=== PATIENT | male | born 1980 | race Caucasian/White ===

== ENCOUNTER 2021-04-20 18:30 | Inpatient (IN) | payer OTHER ==
[2021-04-20] MEDS ORDERED: VANCOMYCIN 1 GM in D5W (PRE-DOCKED) 1,000 MG/250 ML IVPB ONE (18:43)
[2021-04-20] MEDS ORDERED: PIPERACILLIN/TAZOB 4.5 GM 4.5 GM in DEXTROSE 5%-WATER 100 ML IVPB ONE (18:43)
[2021-04-20] MEDS ORDERED: ACETAMINOPHEN 1000 MG/100 ML BAG IVPB ONE (18:43)
[2021-04-20] MEDS ORDERED: LACTATED RINGERS SOLUTION 1000 ML INFUS.BAG IV ONE ×2 (18:43→19:13)
[2021-04-20] MEDS ORDERED: PIPERACILLIN/TAZOB 4.5 GM 4.5 GM/100 ML BAG IVPB ONE (18:46)
[2021-04-20] MEDS ORDERED: PIPERACILLIN/TAZOB 2.25 GM 2.25 GM in DEXTROSE 5%-WATER - 50 ML IVPB ONE (18:47)
[2021-04-20 19:37] LABS: BASO % 0.2 % (0-2.0); HEMATOCRIT 44.7 % (35.4-49); LYMPH % 4.2 % (8-40); MCH 28.4 pg (25.7-33.7); MCHC 31.4 g/dl (32.0-35.9); MEAN CELL VOLUME 90.5 fl (80-96); MEAN PLT VOLUME 11.8 fl (7.5-11.1); MONO % 6.6 % (3.8-10.2); PLATELET COUNT 271 10^3/uL (134-434); RBC 4.94 M/mm3 (4.00-5.60); RDW 13.9 % (11.9-15.9); WHITE BLOOD COUNT 20.2 K/mm3 (4.0-10.0)
[2021-04-20 19:41] LABS: VENOUS BASE EXCESS 1.1 mmol/L (-2-2); VENOUS PH 7.318 (7.310-7.410)
[2021-04-20 19:43] LABS: EPI CELLS 5 /uL (0-25.1); HYALINE CASTS 6 /uL (0-3.1); URINE APPEARANCE CLOUDY; URINE BILIRUBIN 1+ (NEGATIVE); URINE COLOR DK YELLOW; URINE GLUCOSE (UA) NEGATIVE (NEGATIVE); URINE KETONE TRACE (NEGATIVE); URINE LEUK ESTERASE NEGATIVE (NEGATIVE); URINE NITRITE POSITIVE (NEGATIVE); URINE PROTEIN NEGATIVE (NEGATIVE); URINE WBC 5 /uL (0-25.8)
[2021-04-20 19:48] LABS: CHLORIDE 132 mmol/L (98-107)
[2021-04-20 19:51] LABS: ALBUMIN 2.6 g/dl (3.4-5.0); CO2 29 mmol/L (21-32); GLUCOSE,RANDOM 321 mg/dL (74-106); MAGNESIUM 4.2 mg/dL (1.8-2.4)
[2021-04-20 19:54] LABS: CREATININE 3.2 mg/dL (0.55-1.3); SGOT/AST 199 U/L (15-37); SGPT/ALT 438 U/L (13-61)
[2021-04-20 19:56] LABS: BILIRUBIN,TOTAL 1.3 mg/dL (0.2-1); TOT PROT 7.4 g/dl (6.4-8.2)
[2021-04-20 19:57] LABS: ALK PHOS 109 U/L (45-117)
[2021-04-20 19:59] LABS: INR 1.32 (0.83-1.09); PROTHROMBIN TIME (PATIENT) 15.9 SEC (9.7-13.0)
[2021-04-20 20:00] LABS: LACTIC ACID 4.2 mmol/L (0.4-2.0); N-TERMINAL BNP 191.2 pg/ml (5-125)
[2021-04-20 20:02] LABS: ACTIVATED PTT 34.8 SECONDS (25.2-36.5)
[2021-04-20 20:36] LABS: ANION GAP 11 MMOL/L (8-16); BLOOD UREA NITROGEN 140.1 mg/dL (7-18); SODIUM 171 mmol/L (136-145)
[2021-04-20 21:17] LABS: CHLORIDE 132 mmol/L (98-107)
[2021-04-20 21:22] LABS: CALCIUM 8.6 mg/dL (8.5-10.1)
[2021-04-20 21:23] LABS: ALBUMIN 2.3 g/dl (3.4-5.0); CO2 33 mmol/L (21-32); GLUCOSE,RANDOM 346 mg/dL (74-106)
[2021-04-20 21:26] LABS: CREATININE 3.1 mg/dL (0.55-1.3); SGOT/AST 183 U/L (15-37); SGPT/ALT 400 U/L (13-61)
[2021-04-20 21:27] LABS: BILIRUBIN,TOTAL 1.3 mg/dL (0.2-1); TOT PROT 6.6 g/dl (6.4-8.2)
[2021-04-20 21:29] LABS: ALK PHOS 98 U/L (45-117)
[2021-04-20 21:31] LABS: ANION GAP 2 MMOL/L (8-16); BLOOD UREA NITROGEN 134.9 mg/dL (7-18); LACTIC ACID 3.1 mmol/L (0.4-2.0); SODIUM 167 mmol/L (136-145)
[2021-04-20] MEDS ORDERED: LACTATED RINGERS SOLUTION 1,000 ML/1,000 ML INFUS.BAG IV SCH (22:15)
[2021-04-20 22:28] LABS: ANISOCYTOSIS 0; MACROCYTOSIS 0; PLATELET ESTIMATE NORMAL
[2021-04-20 22:57] LABS: URINE BACTERIA 12.1 /uL (0-1359); URINE RBC 21.8 /uL (0-23.9)
[2021-04-21] MEDS: MUPIROCIN 2% TOPICAL OINTMENT FOR DECOLONIZATION NS SCH ×2 (01:44→09:49)
[2021-04-21 05:12] LABS: BASO % 0.2 % (0-2.0); HEMATOCRIT 37.9 % (35.4-49); HEMOGLOBIN 12.1 GM/dL (11.7-16.9); LYMPH % 7.9 % (8-40); MCH 28.5 pg (25.7-33.7); MEAN CELL VOLUME 89.1 fl (80-96); MEAN PLT VOLUME 11.5 fl (7.5-11.1); MONO % 6.8 % (3.8-10.2); NEUT % 85.1 % (42.8-82.8); PLATELET COUNT 172 10^3/uL (134-434); RBC 4.25 M/mm3 (4.00-5.60); RDW 13.4 % (11.9-15.9); WHITE BLOOD COUNT 19.4 K/mm3 (4.0-10.0)
[2021-04-21 05:32] LABS: CHLORIDE 133 mmol/L (98-107)
[2021-04-21 05:34] LABS: CALCIUM 8.2 mg/dL (8.5-10.1); INR 1.3 (0.83-1.09); PROTHROMBIN TIME (PATIENT) 15.6 SEC (9.7-13.0)
[2021-04-21 05:35] LABS: ALBUMIN 2.2 g/dl (3.4-5.0); CO2 29 mmol/L (21-32); GLUCOSE,RANDOM 196 mg/dL (74-106); MAGNESIUM 3.4 mg/dL (1.8-2.4)
[2021-04-21 05:36] LABS: ACTIVATED PTT 30.1 SECONDS (25.2-36.5)
[2021-04-21 05:38] LABS: CREATININE 2.4 mg/dL (0.55-1.3); PHOSPHOROUS 4.2 mg/dL (2.5-4.9); SGOT/AST 154 U/L (15-37); SGPT/ALT 343 U/L (13-61)
[2021-04-21 05:39] LABS: BILIRUBIN,TOTAL 1.3 mg/dL (0.2-1)
[2021-04-21 05:40] LABS: TOT PROT 6.3 g/dl (6.4-8.2)
[2021-04-21 05:41] LABS: ALK PHOS 93 U/L (45-117)
[2021-04-21 05:44] LABS: LACTIC ACID 2.4 mmol/L (0.4-2.0)
[2021-04-21 06:15] LABS: ANION GAP 8 MMOL/L (8-16); BLOOD UREA NITROGEN 115.7 mg/dL (7-18); SODIUM 170 mmol/L (136-145)
[2021-04-21] MEDS ORDERED: SODIUM CHLORIDE 0.45% 1,000 ML IV SCH (07:45)
[2021-04-21] MEDS ORDERED: ACETAMINOPHEN 1000 MG/100 ML BAG IVPB PRN (08:31)
[2021-04-21] MEDS ORDERED: ACETAMINOPHEN 1000 MG/100 ML BAG IVPB ONE (08:32)
[2021-04-21] MEDS ORDERED: AZITHROMYCIN IVPB 500 MG/250 ML BAG IVPB SCH (10:00)
[2021-04-21] MEDS ORDERED: PIPERACILLIN/TAZOB 3.375 GM 3.375 GM in DEXTROSE 5%-WATER - 50 ML IVPB SCH (10:00)
[2021-04-21] MEDS ORDERED: PANTOPRAZOLE SODIUM 40 MG VIAL IVPUSH SCH (10:00)
[2021-04-21] MEDS ORDERED: DEXTROSE 5%-WATER - 50 ML IVPB ONE ×2 (10:46→17:30)
[2021-04-21] MEDS ORDERED: PIPERACILLIN/TAZOBACTAM 3.375 GM VIAL IVPB ONE ×2 (10:46→17:30)
[2021-04-21] MEDS ORDERED: LORazepam 2 MG/ML SDV VIAL IVPUSH PRN ×2 (11:05→16:46)
[2021-04-21] MEDS ORDERED: LORazepam 2 MG/ML SDV VIAL ONE (11:10)
[2021-04-21] MEDS ORDERED: HEPARIN NA (PORCINE) 5,000 UNITS/ML 1ML VIAL SQ SCH (14:00)
[2021-04-21 16:11] LABS: CHLORIDE 132 mmol/L (98-107)
[2021-04-21 16:12] LABS: CALCIUM 8.4 mg/dL (8.5-10.1); CO2 29 mmol/L (21-32)
[2021-04-21 16:13] LABS: BLOOD UREA NITROGEN 96.2 mg/dL (7-18); GLUCOSE,RANDOM 253 mg/dL (74-106)
[2021-04-21 16:16] LABS: CREATININE 2.1 mg/dL (0.55-1.3)
[2021-04-21 16:17] LABS: ANION GAP 5 MMOL/L (8-16); SODIUM 167 mmol/L (136-145)
[2021-04-21] MEDS: SODIUM CHLORIDE 0.45% 1,000 ML IV SCH ×2 (16:47→20:15)
[2021-04-21] MEDS: PIPERACILLIN/TAZOB 3.375 GM 3.375 GM in DEXTROSE 5%-WATER - 50 ML IVPB SCH (17:47)
[2021-04-21] MEDS: HEPARIN NA (PORCINE) 5,000 UNITS/ML 1ML VIAL SQ SCH (22:00)
[2021-04-21] MEDS ORDERED: MUPIROCIN 2% TOPICAL OINTMENT FOR DECOLONIZATION NS SCH (22:00)
[2021-04-21] MEDS ORDERED: CHLORHEXIDINE GLUCONATE 4% CLEANSER FOR DECOLONIZATION TP SCH ×2 (22:00)
[2021-04-22] MEDS ORDERED: PIPERACILLIN/TAZOBACTAM 3.375 GM VIAL IVPB ONE ×3 (00:34→16:34)
[2021-04-22] MEDS ORDERED: DEXTROSE 5%-WATER - 50 ML IVPB ONE ×3 (00:34→16:34)
[2021-04-22 02:02] LABS: CHLORIDE 134 mmol/L (98-107)
[2021-04-22 02:04] LABS: BLOOD UREA NITROGEN 77.8 mg/dL (7-18); CALCIUM 7.9 mg/dL (8.5-10.1)
[2021-04-22 02:05] LABS: GLUCOSE,RANDOM 188 mg/dL (74-106)
[2021-04-22] MEDS: PIPERACILLIN/TAZOB 3.375 GM 3.375 GM in DEXTROSE 5%-WATER - 50 ML IVPB SCH ×3 (02:07→18:32)
[2021-04-22 02:08] LABS: CREATININE 1.7 mg/dL (0.55-1.3)
[2021-04-22 02:14] LABS: ANION GAP 6 MMOL/L (8-16); CO2 27 mmol/L (21-32); SODIUM 167 mmol/L (136-145)
[2021-04-22] MEDS: SODIUM CHLORIDE 0.45% 1,000 ML IV SCH (05:22)
[2021-04-22] MEDS: HEPARIN NA (PORCINE) 5,000 UNITS/ML 1ML VIAL SQ SCH ×3 (05:54→22:07)
[2021-04-22 10:36] LABS: BASO % 0.2 % (0-2.0); EOS % 0.6 % (0-4.5); HEMATOCRIT 33.5 % (35.4-49); HEMOGLOBIN 10.9 GM/dL (11.7-16.9); MCH 28.8 pg (25.7-33.7); MCHC 32.5 g/dl (32.0-35.9); MEAN CELL VOLUME 88.6 fl (80-96); MEAN PLT VOLUME 12.2 fl (7.5-11.1); MONO % 5.2 % (3.8-10.2); PLATELET COUNT 137 10^3/uL (134-434); RBC 3.78 M/mm3 (4.00-5.60); RDW 13.3 % (11.9-15.9); WHITE BLOOD COUNT 15.6 K/mm3 (4.0-10.0)
[2021-04-22 11:00] LABS: CHLORIDE 132 mmol/L (98-107)
[2021-04-22 11:02] LABS: BLOOD UREA NITROGEN 60.4 mg/dL (7-18); CALCIUM 7.4 mg/dL (8.5-10.1); CO2 29 mmol/L (21-32); GLUCOSE,RANDOM 194 mg/dL (74-106); MAGNESIUM 3.3 mg/dL (1.8-2.4)
[2021-04-22 11:03] LABS: ALBUMIN 2.1 g/dl (3.4-5.0)
[2021-04-22 11:05] LABS: CREATININE 1.4 mg/dL (0.55-1.3); SGOT/AST 137 U/L (15-37); SGPT/ALT 247 U/L (13-61)
[2021-04-22 11:06] LABS: PHOSPHOROUS 3.4 mg/dL (2.5-4.9)
[2021-04-22 11:07] LABS: BILIRUBIN,TOTAL 0.9 mg/dL (0.2-1); TOT PROT 5.8 g/dl (6.4-8.2)
[2021-04-22 11:08] LABS: ALK PHOS 92 U/L (45-117)
[2021-04-22 11:12] LABS: ANION GAP 3 MMOL/L (8-16); SODIUM 163 mmol/L (136-145)
[2021-04-22] MEDS: PANTOPRAZOLE SODIUM 40 MG VIAL IVPUSH SCH (11:45)
[2021-04-22] MEDS: AZITHROMYCIN IVPB 500 MG/250 ML BAG IVPB SCH (12:43)
[2021-04-22 15:24] VITALS: BMI 25.1
[2021-04-22] MEDS: DEXTROSE 5%-WATER - 1,000 ML IV SCH (15:43)
[2021-04-23] MEDS: DEXTROSE 5%-WATER - 1,000 ML IV SCH ×3 (00:11→15:00)
[2021-04-23] MEDS ORDERED: PIPERACILLIN/TAZOBACTAM 3.375 GM VIAL IVPB ONE ×2 (01:20→09:09)
[2021-04-23] MEDS ORDERED: DEXTROSE 5%-WATER - 50 ML IVPB ONE ×3 (01:21→18:31)
[2021-04-23] MEDS: PIPERACILLIN/TAZOB 3.375 GM 3.375 GM in DEXTROSE 5%-WATER - 50 ML IVPB SCH ×3 (01:22→11:23)
[2021-04-23] MEDS: HEPARIN NA (PORCINE) 5,000 UNITS/ML 1ML VIAL SQ SCH (05:45)
[2021-04-23] MEDS: PANTOPRAZOLE SODIUM 40 MG VIAL IVPUSH SCH (09:10)
[2021-04-23 10:08] LABS: CALCIUM 7.6 mg/dL (8.5-10.1)
[2021-04-23 10:09] LABS: BLOOD UREA NITROGEN 38.4 mg/dL (7-18); MAGNESIUM 2.8 mg/dL (1.8-2.4)
[2021-04-23 10:12] LABS: CREATININE 1.2 mg/dL (0.55-1.3)
[2021-04-23 10:14] LABS: BILIRUBIN,TOTAL 1.2 mg/dL (0.2-1); TOT PROT 5.6 g/dl (6.4-8.2)
[2021-04-23] MEDS ORDERED: POTASSIUM PHOSPHATE 15 MM in DEXTROSE 5%-WATER - 250 ML IVPB ONE (11:30)
[2021-04-23] MEDS ORDERED: VANCOMYCIN/WATER BAGS 1,250 MG/250 ML BAG IVPB SCH ×2 (13:00→20:00)
[2021-04-23] MEDS: AZITHROMYCIN IVPB 500 MG/250 ML BAG IVPB SCH (13:09)
[2021-04-23] MEDS ORDERED: DEXTROSE 5%-WATER - 1,000 ML with POTASSIUM CHLORIDE 40 MEQ IV SCH (16:48)
[2021-04-23] MEDS ORDERED: AZTREONAM 1 GM VIAL (RESTRICTED TO ID) ONE (18:30)
[2021-04-23] MEDS: AZTREONAM 1 GM in DEXTROSE 5%-WATER - 50 ML IVPB SCH (19:46)
[2021-04-23 23:45] LABS: HEMATOCRIT 29.5 % (35.4-49); HEMOGLOBIN 9.9 GM/dL (11.7-16.9); MCH 28.8 pg (25.7-33.7); MCHC 33.6 g/dl (32.0-35.9); MEAN CELL VOLUME 85.8 fl (80-96); MEAN PLT VOLUME 11.6 fl (7.5-11.1); PLATELET COUNT 126 10^3/uL (134-434); RBC 3.44 M/mm3 (4.00-5.60); WHITE BLOOD COUNT 11.6 K/mm3 (4.0-10.0)
[2021-04-24] MEDS: PANTOPRAZOLE SODIUM 40 MG VIAL IVPUSH SCH ×2 (00:14→10:15)
[2021-04-24 00:48] LABS: ANISOCYTOSIS 1+; MACROCYTOSIS 0; PLATELET ESTIMATE DECREASED
[2021-04-24] MEDS ORDERED: AZTREONAM 1 GM VIAL (RESTRICTED TO ID) ONE ×3 (04:28→17:09)
[2021-04-24] MEDS ORDERED: DEXTROSE 5%-WATER - 50 ML IVPB ONE ×3 (04:28→17:09)
[2021-04-24] MEDS: AZTREONAM 1 GM in DEXTROSE 5%-WATER - 50 ML IVPB SCH ×3 (04:31→17:26)
[2021-04-24 09:20] LABS: BASO % 0.3 % (0-2.0); EOS % 5.1 % (0-4.5); HEMATOCRIT 28.8 % (35.4-49); HEMOGLOBIN 9.7 GM/dL (11.7-16.9); MCH 29.4 pg (25.7-33.7); MCHC 33.6 g/dl (32.0-35.9); MEAN CELL VOLUME 87.6 fl (80-96); MEAN PLT VOLUME 11.5 fl (7.5-11.1); MONO % 6.4 % (3.8-10.2); NEUT % 77.2 % (42.8-82.8); PLATELET COUNT 126 10^3/uL (134-434); RBC 3.29 M/mm3 (4.00-5.60); RDW 12.9 % (11.9-15.9); WHITE BLOOD COUNT 9.9 K/mm3 (4.0-10.0)
[2021-04-24 09:48] LABS: CALCIUM 7.9 mg/dL (8.5-10.1)
[2021-04-24 09:49] LABS: BLOOD UREA NITROGEN 22.3 mg/dL (7-18)
[2021-04-24 09:51] LABS: CREATININE 0.8 mg/dL (0.55-1.3)
[2021-04-24 09:53] LABS: BILIRUBIN,TOTAL 0.9 mg/dL (0.2-1); TOT PROT 5.4 g/dl (6.4-8.2)
[2021-04-24] MEDS ORDERED: PT OWN MED DRAWER 7, Y5N ONE ×2 (10:12→21:50)
[2021-04-24] MEDS: POTASSIUM CHLORIDE 40 MEQ in DEXTROSE 5%-WATER - 1,000 ML IV SCH ×2 (14:22→20:17)
[2021-04-24] MEDS: CLINDAMYCIN 600MG PREMIX IVPB 600 MG/50 ML BAG IVPB SCH (18:50)
[2021-04-24] MEDS: FAMOTIDINE 20 MG/50 ML IVPB 20 MG/50 ML MG IVPB SCH (21:52)
[2021-04-25] MEDS ORDERED: AZTREONAM 1 GM VIAL (RESTRICTED TO ID) ONE ×3 (01:06→17:42)
[2021-04-25] MEDS ORDERED: DEXTROSE 5%-WATER - 50 ML IVPB ONE ×3 (01:06→17:43)
[2021-04-25] MEDS: AZTREONAM 1 GM in DEXTROSE 5%-WATER - 50 ML IVPB SCH ×3 (01:23→17:45)
[2021-04-25] MEDS: CLINDAMYCIN 600MG PREMIX IVPB 600 MG/50 ML BAG IVPB SCH ×3 (01:54→17:35)
[2021-04-25] MEDS: POTASSIUM CHLORIDE 40 MEQ in DEXTROSE 5%-WATER - 1,000 ML IV SCH ×2 (03:35→15:20)
[2021-04-25 09:20] LABS: BASO % 0.3 % (0-2.0); EOS % 5.1 % (0-4.5); HEMATOCRIT 28.8 % (35.4-49); HEMOGLOBIN 9.6 GM/dL (11.7-16.9); LYMPH % 8.5 % (8-40); MCH 28.5 pg (25.7-33.7); MCHC 33.5 g/dl (32.0-35.9); MEAN PLT VOLUME 10.7 fl (7.5-11.1); MONO % 5.1 % (3.8-10.2); PLATELET COUNT 146 10^3/uL (134-434); RBC 3.39 M/mm3 (4.00-5.60); RDW 13.1 % (11.9-15.9)
[2021-04-25] MEDS: FAMOTIDINE 20 MG/50 ML IVPB 20 MG/50 ML MG IVPB SCH ×2 (09:28→21:03)
[2021-04-25 09:51] LABS: BLOOD UREA NITROGEN 14.3 mg/dL (7-18)
[2021-04-25 09:52] LABS: CALCIUM 7.7 mg/dL (8.5-10.1)
[2021-04-25 09:54] LABS: BILIRUBIN,DIRECT 0.2 mg/dL (0.0-0.2); CREATININE 0.8 mg/dL (0.55-1.3)
[2021-04-25 09:56] LABS: BILIRUBIN,TOTAL 0.6 mg/dL (0.2-1); TOT PROT 5.4 g/dl (6.4-8.2)
[2021-04-25 12:52] LABS: ANISOCYTOSIS 1+; MACROCYTOSIS 1+
[2021-04-25 22:48] LABS: HEMATOCRIT 31.3 % (35.4-49); HEMOGLOBIN 10.6 GM/dL (11.7-16.9); MCH 28.8 pg (25.7-33.7); MCHC 33.9 g/dl (32.0-35.9); MEAN CELL VOLUME 84.8 fl (80-96); MEAN PLT VOLUME 10.4 fl (7.5-11.1); PLATELET COUNT 168 10^3/uL (134-434); RBC 3.69 M/mm3 (4.00-5.60); WHITE BLOOD COUNT 14.8 K/mm3 (4.0-10.0)
[2021-04-25 23:10] LABS: ALBUMIN 2.4 g/dl (3.4-5.0); BLOOD UREA NITROGEN 13.6 mg/dL (7-18); CALCIUM 8.1 mg/dL (8.5-10.1)
[2021-04-25 23:13] LABS: CREATININE 0.7 mg/dL (0.55-1.3)
[2021-04-25 23:15] LABS: BILIRUBIN,TOTAL 0.6 mg/dL (0.2-1); TOT PROT 6.1 g/dl (6.4-8.2)
[2021-04-25 23:53] LABS: ANISOCYTOSIS 0; MACROCYTOSIS 1+; PLATELET ESTIMATE NORMAL
[2021-04-26] MEDS: CLINDAMYCIN 600MG PREMIX IVPB 600 MG/50 ML BAG IVPB SCH ×3 (01:11→18:48)
[2021-04-26] MEDS ORDERED: DEXTROSE 5%-WATER - 50 ML IVPB ONE ×3 (01:18→18:15)
[2021-04-26] MEDS ORDERED: AZTREONAM 1 GM VIAL (RESTRICTED TO ID) ONE ×3 (01:18→18:15)
[2021-04-26] MEDS: AZTREONAM 1 GM in DEXTROSE 5%-WATER - 50 ML IVPB SCH ×3 (01:42→18:26)
[2021-04-26 09:37] LABS: HEMATOCRIT 30.8 % (35.4-49); HEMOGLOBIN 10.4 GM/dL (11.7-16.9); MCH 28.8 pg (25.7-33.7); MCHC 33.9 g/dl (32.0-35.9); MEAN CELL VOLUME 84.9 fl (80-96); MEAN PLT VOLUME 10.4 fl (7.5-11.1); PLATELET COUNT 182 10^3/uL (134-434); RBC 3.62 M/mm3 (4.00-5.60); RDW 13.1 % (11.9-15.9); WHITE BLOOD COUNT 13.8 K/mm3 (4.0-10.0)
[2021-04-26] MEDS ORDERED: PT OWN MED DRAWER 7, Y5N ONE (09:50)
[2021-04-26] MEDS: AMINO ACIDS/PROTEIN HYDROLYS 30 ML LIQUID.PKT GT SCH (09:55)
[2021-04-26] MEDS: MULTIVIT-MINERALS ORAL LIQUID PEG SCH (09:57)
[2021-04-26] MEDS ORDERED: MULTIVIT-MINERALS ORAL LIQUID PO SCH (10:00)
[2021-04-26] MEDS: FAMOTIDINE 20 MG/50 ML IVPB 20 MG/50 ML MG IVPB SCH ×2 (10:05→21:11)
[2021-04-26 10:09] LABS: BLOOD UREA NITROGEN 14.8 mg/dL (7-18)
[2021-04-26 10:11] LABS: ALBUMIN 2.2 g/dl (3.4-5.0); CALCIUM 8.4 mg/dL (8.5-10.1)
[2021-04-26 10:12] LABS: CREATININE 0.7 mg/dL (0.55-1.3)
[2021-04-26 10:14] LABS: PHOSPHOROUS 2.4 mg/dL (2.5-4.9)
[2021-04-26 10:16] LABS: BILIRUBIN,TOTAL 0.4 mg/dL (0.2-1); TOT PROT 5.9 g/dl (6.4-8.2)
[2021-04-26 12:58] LABS: ANISOCYTOSIS 0; MACROCYTOSIS 0; PLATELET ESTIMATE NORMAL
[2021-04-27] MEDS ORDERED: AZTREONAM 1 GM VIAL (RESTRICTED TO ID) ONE ×4 (01:05→19:38)
[2021-04-27] MEDS ORDERED: DEXTROSE 5%-WATER - 50 ML IVPB ONE ×4 (01:05→19:38)
[2021-04-27] MEDS: AZTREONAM 1 GM in DEXTROSE 5%-WATER - 50 ML IVPB SCH ×3 (01:12→17:12)
[2021-04-27] MEDS: CLINDAMYCIN 600MG PREMIX IVPB 600 MG/50 ML BAG IVPB SCH ×3 (01:12→17:12)
[2021-04-27] MEDS ORDERED: SODIUM CHLORIDE 500 ML IV STA (08:20)
[2021-04-27 10:51] LABS: HEMATOCRIT 31.5 % (35.4-49); HEMOGLOBIN 10.9 GM/dL (11.7-16.9); MCH 29.3 pg (25.7-33.7); MCHC 34.5 g/dl (32.0-35.9); MEAN CELL VOLUME 84.9 fl (80-96); MEAN PLT VOLUME 9.9 fl (7.5-11.1); PLATELET COUNT 265 10^3/uL (134-434); RBC 3.71 M/mm3 (4.00-5.60); RDW 13.2 % (11.9-15.9); WHITE BLOOD COUNT 16.8 K/mm3 (4.0-10.0)
[2021-04-27] MEDS ORDERED: PT OWN MED DRAWER 7, Y5N ONE (11:09)
[2021-04-27] MEDS: AMINO ACIDS/PROTEIN HYDROLYS 30 ML LIQUID.PKT GT SCH (11:12)
[2021-04-27] MEDS: MULTIVIT-MINERALS ORAL LIQUID PEG SCH (11:13)
[2021-04-27 11:15] LABS: ALBUMIN 2.4 g/dl (3.4-5.0); BLOOD UREA NITROGEN 13.9 mg/dL (7-18)
[2021-04-27 11:19] LABS: BILIRUBIN,TOTAL 0.5 mg/dL (0.2-1); CALCIUM 8.3 mg/dL (8.5-10.1); CREATININE 0.6 mg/dL (0.55-1.3); TOT PROT 6.3 g/dl (6.4-8.2)
[2021-04-27] MEDS: FAMOTIDINE 20 MG/50 ML IVPB 20 MG/50 ML MG IVPB SCH ×2 (12:39→22:52)
[2021-04-27] MEDS: LORazepam 2 MG/ML SDV VIAL IVPUSH PRN (23:56)
[2021-04-28] MEDS: AZTREONAM 1 GM in DEXTROSE 5%-WATER - 50 ML IVPB SCH ×3 (03:13→18:03)
[2021-04-28] MEDS: CLINDAMYCIN 600MG PREMIX IVPB 600 MG/50 ML BAG IVPB SCH ×3 (03:13→17:08)
[2021-04-28 07:31] LABS: HEMATOCRIT 33.1 % (35.4-49); HEMOGLOBIN 11.1 GM/dL (11.7-16.9); MCHC 33.6 g/dl (32.0-35.9); MEAN CELL VOLUME 86.1 fl (80-96); MEAN PLT VOLUME 9.8 fl (7.5-11.1); PLATELET COUNT 260 10^3/uL (134-434); RBC 3.84 M/mm3 (4.00-5.60); RDW 13.4 % (11.9-15.9); WHITE BLOOD COUNT 11.9 K/mm3 (4.0-10.0)
[2021-04-28 07:57] LABS: CALCIUM 8.1 mg/dL (8.5-10.1)
[2021-04-28 07:58] LABS: ALBUMIN 2.3 g/dl (3.4-5.0); BLOOD UREA NITROGEN 15.6 mg/dL (7-18)
[2021-04-28 08:02] LABS: CREATININE 0.7 mg/dL (0.55-1.3)
[2021-04-28 08:03] LABS: BILIRUBIN,TOTAL 0.5 mg/dL (0.2-1); TOT PROT 5.8 g/dl (6.4-8.2)
[2021-04-28] MEDS: AMINO ACIDS/PROTEIN HYDROLYS 30 ML LIQUID.PKT GT SCH (09:00)
[2021-04-28] MEDS ORDERED: PT OWN MED DRAWER 7, Y5N ONE ×3 (09:22→18:07)
[2021-04-28] MEDS: MULTIVIT-MINERALS ORAL LIQUID PEG SCH (09:25)
[2021-04-28] MEDS: LORazepam 2 MG/ML SDV VIAL IVPUSH PRN ×2 (09:27→18:08)
[2021-04-28] MEDS: FAMOTIDINE 20 MG/50 ML IVPB 20 MG/50 ML MG IVPB SCH ×2 (09:27→22:26)
[2021-04-28] MEDS ORDERED: LORazepam 1 MG TABLET GT PRN (11:02)
[2021-04-28] MEDS ORDERED: AZTREONAM 1 GM VIAL (RESTRICTED TO ID) ONE (18:02)
[2021-04-28] MEDS ORDERED: DEXTROSE 5%-WATER - 50 ML IVPB ONE (18:03)
[2021-04-28] MEDS: HEPARIN NA (PORCINE) 5,000 UNITS/ML 1ML VIAL SQ SCH (22:27)
[2021-04-28] MEDS: LORazepam 1 MG TABLET GT SCH (22:27)
[2021-04-29] MEDS ORDERED: DEXTROSE 5%-WATER - 50 ML IVPB ONE ×4 (01:02→23:38)
[2021-04-29] MEDS ORDERED: AZTREONAM 1 GM VIAL (RESTRICTED TO ID) ONE ×4 (01:02→23:38)
[2021-04-29] MEDS: CLINDAMYCIN 600MG PREMIX IVPB 600 MG/50 ML BAG IVPB SCH ×3 (02:00→18:03)
[2021-04-29] MEDS: AZTREONAM 1 GM in DEXTROSE 5%-WATER - 50 ML IVPB SCH ×3 (02:33→18:03)
[2021-04-29] MEDS: LORazepam 1 MG TABLET GT SCH ×4 (07:12→22:46)
[2021-04-29] MEDS: AMINO ACIDS/PROTEIN HYDROLYS 30 ML LIQUID.PKT GT SCH (07:12)
[2021-04-29] MEDS: HEPARIN NA (PORCINE) 5,000 UNITS/ML 1ML VIAL SQ SCH ×3 (07:12→21:05)
[2021-04-29] MEDS: FAMOTIDINE 20 MG/50 ML IVPB 20 MG/50 ML MG IVPB SCH ×2 (10:34→21:05)
[2021-04-29] MEDS: MULTIVIT-MINERALS ORAL LIQUID PEG SCH (10:34)
[2021-04-29] MEDS ORDERED: PT OWN MED DRAWER 7, Y5N ONE (11:42)
[2021-04-29 12:16] LABS: BASO % 0.3 % (0-2.0); EOS % 0.7 % (0-4.5); HEMATOCRIT 31.3 % (35.4-49); HEMOGLOBIN 10.6 GM/dL (11.7-16.9); LYMPH % 12.2 % (8-40); MCH 28.6 pg (25.7-33.7); MEAN CELL VOLUME 84.1 fl (80-96); NEUT % 80.8 % (42.8-82.8); PLATELET COUNT 310 10^3/uL (134-434); RBC 3.73 M/mm3 (4.00-5.60); RDW 13.6 % (11.9-15.9); WHITE BLOOD COUNT 12.9 K/mm3 (4.0-10.0)
[2021-04-29 12:32] LABS: ALBUMIN 2.5 g/dl (3.4-5.0); CALCIUM 8.3 mg/dL (8.5-10.1)
[2021-04-29 12:33] LABS: BLOOD UREA NITROGEN 15.9 mg/dL (7-18)
[2021-04-29 12:36] LABS: CREATININE 0.6 mg/dL (0.55-1.3)
[2021-04-29 12:37] LABS: TOT PROT 6.3 g/dl (6.4-8.2)
[2021-04-29] MEDS: METOPROLOL TARTRATE 25 MG TABLET (FP) PEG SCH (21:04)
[2021-04-30] MEDS: CLINDAMYCIN 600MG PREMIX IVPB 600 MG/50 ML BAG IVPB SCH ×3 (01:11→17:46)
[2021-04-30] MEDS: AZTREONAM 1 GM in DEXTROSE 5%-WATER - 50 ML IVPB SCH ×3 (01:45→17:46)
[2021-04-30] MEDS: LORazepam 1 MG TABLET GT SCH ×3 (05:34→17:46)
[2021-04-30] MEDS: HEPARIN NA (PORCINE) 5,000 UNITS/ML 1ML VIAL SQ SCH ×3 (05:34→21:44)
[2021-04-30 06:47] LABS: BASO % 0.5 % (0-2.0); EOS % 1.2 % (0-4.5); HEMOGLOBIN 10.3 GM/dL (11.7-16.9); LYMPH % 14.9 % (8-40); MCHC 34.5 g/dl (32.0-35.9); MEAN CELL VOLUME 84.3 fl (80-96); MEAN PLT VOLUME 8.6 fl (7.5-11.1); MONO % 7.3 % (3.8-10.2); NEUT % 76.1 % (42.8-82.8); PLATELET COUNT 307 10^3/uL (134-434); RBC 3.56 M/mm3 (4.00-5.60); RDW 13.7 % (11.9-15.9); WHITE BLOOD COUNT 11.5 K/mm3 (4.0-10.0)
[2021-04-30 06:54] LABS: MAGNESIUM 1.9 mg/dL (1.8-2.4)
[2021-04-30 07:07] LABS: CALCIUM 8.3 mg/dL (8.5-10.1)
[2021-04-30 07:08] LABS: ALBUMIN 2.4 g/dl (3.4-5.0)
[2021-04-30 07:11] LABS: CREATININE 0.7 mg/dL (0.55-1.3)
[2021-04-30 07:13] LABS: BILIRUBIN,TOTAL 0.6 mg/dL (0.2-1); TOT PROT 6.1 g/dl (6.4-8.2)
[2021-04-30] MEDS ORDERED: PT OWN MED DRAWER 7, Y5N ONE (08:56)
[2021-04-30] MEDS ORDERED: AZTREONAM 1 GM VIAL (RESTRICTED TO ID) ONE ×2 (08:56→16:52)
[2021-04-30] MEDS ORDERED: DEXTROSE 5%-WATER - 50 ML IVPB ONE ×2 (08:56→16:53)
[2021-04-30] MEDS: MULTIVIT-MINERALS ORAL LIQUID PEG SCH (09:24)
[2021-04-30] MEDS: AMINO ACIDS/PROTEIN HYDROLYS 30 ML LIQUID.PKT GT SCH (09:24)
[2021-04-30] MEDS: METOPROLOL TARTRATE 25 MG TABLET (FP) PEG SCH ×2 (10:25→21:45)
[2021-04-30] MEDS: FAMOTIDINE 20 MG/50 ML IVPB 20 MG/50 ML MG IVPB SCH ×2 (10:25→21:45)
[2021-04-30] MEDS ORDERED: ACETAMINOPHEN 1000 MG/100 ML BAG IVPB ONE (17:09)
[2021-04-30] MEDS ORDERED: ACETAMINOPHEN INJECTION 100 ML IVPB ONE (17:10)
[2021-05-01] MEDS: LORazepam 1 MG TABLET GT SCH ×5 (00:22→23:06)
[2021-05-01] MEDS ORDERED: DEXTROSE 5%-WATER - 50 ML IVPB ONE ×2 (01:06→09:22)
[2021-05-01] MEDS ORDERED: AZTREONAM 1 GM VIAL (RESTRICTED TO ID) ONE ×2 (01:06→09:22)
[2021-05-01] MEDS: AZTREONAM 1 GM in DEXTROSE 5%-WATER - 50 ML IVPB SCH ×2 (01:44→09:37)
[2021-05-01] MEDS: CLINDAMYCIN 600MG PREMIX IVPB 600 MG/50 ML BAG IVPB SCH ×2 (02:02→09:38)
[2021-05-01] MEDS: HEPARIN NA (PORCINE) 5,000 UNITS/ML 1ML VIAL SQ SCH ×3 (07:17→23:06)
[2021-05-01 07:49] LABS: BASO % 0.7 % (0-2.0); EOS % 1.2 % (0-4.5); LYMPH % 14.8 % (8-40); MCH 29.3 pg (25.7-33.7); MCHC 34.4 g/dl (32.0-35.9); MEAN CELL VOLUME 85.2 fl (80-96); MEAN PLT VOLUME 8.8 fl (7.5-11.1); MONO % 7.5 % (3.8-10.2); NEUT % 75.8 % (42.8-82.8); PLATELET COUNT 333 10^3/uL (134-434); RBC 3.75 M/mm3 (4.00-5.60); RDW 13.7 % (11.9-15.9); WHITE BLOOD COUNT 9.7 K/mm3 (4.0-10.0)
[2021-05-01 08:15] LABS: CALCIUM 8.9 mg/dL (8.5-10.1)
[2021-05-01 08:16] LABS: BLOOD UREA NITROGEN 11.1 mg/dL (7-18)
[2021-05-01 08:19] LABS: CREATININE 0.6 mg/dL (0.55-1.3)
[2021-05-01] MEDS: AMINO ACIDS/PROTEIN HYDROLYS 30 ML LIQUID.PKT GT SCH (08:30)
[2021-05-01] MEDS ORDERED: PT OWN MED DRAWER 7, Y5N ONE (09:22)
[2021-05-01] MEDS: MULTIVIT-MINERALS ORAL LIQUID PEG SCH (09:38)
[2021-05-01] MEDS: FAMOTIDINE 20 MG/50 ML IVPB 20 MG/50 ML MG IVPB SCH ×2 (09:39→23:06)
[2021-05-01] MEDS: METOPROLOL TARTRATE 25 MG TABLET (FP) PEG SCH ×2 (09:39→23:06)
[2021-05-01] MEDS ORDERED: METOPROLOL TARTRATE 25 MG TABLET (FP) PEG ONE (14:45)
[2021-05-01] MEDS ORDERED: ACETAMINOPHEN 1000 MG/100 ML BAG IVPB ONE (14:45)
[2021-05-01] MEDS: METOPROLOL TARTRATE 5 MG/5 ML VIAL IVPUSH PRN ×2 (14:48→17:50)
[2021-05-02] MEDS ORDERED: ACETAMINOPHEN 1000 MG/100 ML BAG IVPB ONE ×2 (00:06→15:37)
[2021-05-02] MEDS: METOPROLOL TARTRATE 5 MG/5 ML VIAL IVPUSH PRN ×2 (03:52→15:01)
[2021-05-02] MEDS: LORazepam 1 MG TABLET GT SCH ×4 (06:25→23:08)
[2021-05-02] MEDS: HEPARIN NA (PORCINE) 5,000 UNITS/ML 1ML VIAL SQ SCH ×3 (06:25→22:30)
[2021-05-02 06:32] LABS: BLOOD UREA NITROGEN 12.2 mg/dL (7-18); CALCIUM 8.5 mg/dL (8.5-10.1)
[2021-05-02 06:36] LABS: CREATININE 0.6 mg/dL (0.55-1.3); PHOSPHOROUS 2.9 mg/dL (2.5-4.9)
[2021-05-02 08:23] LABS: BASO % 0.9 % (0-2.0); EOS % 1.2 % (0-4.5); HEMATOCRIT 31.6 % (35.4-49); LYMPH % 16.2 % (8-40); MCH 29.5 pg (25.7-33.7); MCHC 34.9 g/dl (32.0-35.9); MEAN CELL VOLUME 84.7 fl (80-96); MEAN PLT VOLUME 8.6 fl (7.5-11.1); MONO % 8.8 % (3.8-10.2); NEUT % 72.9 % (42.8-82.8); PLATELET COUNT 349 10^3/uL (134-434); RBC 3.74 M/mm3 (4.00-5.60); WHITE BLOOD COUNT 9.6 K/mm3 (4.0-10.0)
[2021-05-02] MEDS ORDERED: PT OWN MED DRAWER 7, Y5N ONE (09:20)
[2021-05-02] MEDS: MULTIVIT-MINERALS ORAL LIQUID PEG SCH (09:27)
[2021-05-02] MEDS: AMINO ACIDS/PROTEIN HYDROLYS 30 ML LIQUID.PKT GT SCH (09:27)
[2021-05-02] MEDS: FAMOTIDINE 20 MG/50 ML IVPB 20 MG/50 ML MG IVPB SCH ×2 (09:27→22:30)
[2021-05-02] MEDS: METOPROLOL TARTRATE 25 MG TABLET (FP) PEG SCH ×2 (09:27→22:30)
[2021-05-02 16:12] LABS: ALBUMIN 2.8 g/dl (3.4-5.0)
[2021-05-02 16:17] LABS: BILIRUBIN,TOTAL 0.7 mg/dL (0.2-1); TOT PROT 6.6 g/dl (6.4-8.2)
[2021-05-03] MEDS: LORazepam 1 MG TABLET GT SCH ×4 (05:47→23:39)
[2021-05-03] MEDS: HEPARIN NA (PORCINE) 5,000 UNITS/ML 1ML VIAL SQ SCH ×3 (05:48→23:01)
[2021-05-03 06:48] LABS: BASO % 0.9 % (0-2.0); EOS % 1.4 % (0-4.5); HEMATOCRIT 30.2 % (35.4-49); HEMOGLOBIN 10.4 GM/dL (11.7-16.9); LYMPH % 20.5 % (8-40); MCH 29.4 pg (25.7-33.7); MCHC 34.3 g/dl (32.0-35.9); MEAN CELL VOLUME 85.6 fl (80-96); MEAN PLT VOLUME 8.6 fl (7.5-11.1); MONO % 8.3 % (3.8-10.2); NEUT % 68.9 % (42.8-82.8); PLATELET COUNT 322 10^3/uL (134-434); RBC 3.53 M/mm3 (4.00-5.60); RDW 14.2 % (11.9-15.9); WHITE BLOOD COUNT 7.5 K/mm3 (4.0-10.0)
[2021-05-03 07:13] LABS: ALBUMIN 2.6 g/dl (3.4-5.0); BLOOD UREA NITROGEN 12.6 mg/dL (7-18); CALCIUM 8.8 mg/dL (8.5-10.1); MAGNESIUM 2.2 mg/dL (1.8-2.4)
[2021-05-03 07:16] LABS: CREATININE 0.6 mg/dL (0.55-1.3); PHOSPHOROUS 3.4 mg/dL (2.5-4.9)
[2021-05-03 07:18] LABS: BILIRUBIN,TOTAL 0.5 mg/dL (0.2-1); TOT PROT 6.1 g/dl (6.4-8.2)
[2021-05-03] MEDS: AMINO ACIDS/PROTEIN HYDROLYS 30 ML LIQUID.PKT GT SCH (09:00)
[2021-05-03] MEDS ORDERED: PT OWN MED DRAWER 7, Y5N ONE (09:44)
[2021-05-03] MEDS: METOPROLOL TARTRATE 25 MG TABLET (FP) PEG SCH ×2 (09:52→23:01)
[2021-05-03] MEDS: MULTIVIT-MINERALS ORAL LIQUID PEG SCH (09:52)
[2021-05-03] MEDS: FAMOTIDINE 20 MG/50 ML IVPB 20 MG/50 ML MG IVPB SCH ×2 (09:52→23:01)
[2021-05-03] MEDS ORDERED: morphine SULFATE 4 MG/ML VIAL ONE (12:15)
[2021-05-03] MEDS ORDERED: morphine SULFATE 4 MG/ML VIAL IVPUSH ONE (12:15)
[2021-05-03] MEDS: METOPROLOL TARTRATE 5 MG/5 ML VIAL IVPUSH PRN (18:01)
[2021-05-04] MEDS: LORazepam 1 MG TABLET GT SCH ×4 (05:04→23:13)
[2021-05-04] MEDS: HEPARIN NA (PORCINE) 5,000 UNITS/ML 1ML VIAL SQ SCH ×3 (05:05→21:23)
[2021-05-04 07:05] LABS: BASO % 0.4 % (0-2.0); EOS % 0.6 % (0-4.5); HEMATOCRIT 33.9 % (35.4-49); HEMOGLOBIN 11.3 GM/dL (11.7-16.9); LYMPH % 9.5 % (8-40); MCH 28.6 pg (25.7-33.7); MCHC 33.3 g/dl (32.0-35.9); MEAN CELL VOLUME 85.8 fl (80-96); MEAN PLT VOLUME 8.7 fl (7.5-11.1); MONO % 5.3 % (3.8-10.2); NEUT % 84.2 % (42.8-82.8); PLATELET COUNT 324 10^3/uL (134-434); RBC 3.95 M/mm3 (4.00-5.60); RDW 14.2 % (11.9-15.9); WHITE BLOOD COUNT 15.1 K/mm3 (4.0-10.0)
[2021-05-04 07:25] LABS: ALBUMIN 2.8 g/dl (3.4-5.0); BLOOD UREA NITROGEN 13.3 mg/dL (7-18); CALCIUM 9.1 mg/dL (8.5-10.1); MAGNESIUM 2.1 mg/dL (1.8-2.4)
[2021-05-04 07:28] LABS: CREATININE 0.6 mg/dL (0.55-1.3); PHOSPHOROUS 3.1 mg/dL (2.5-4.9)
[2021-05-04 07:30] LABS: BILIRUBIN,TOTAL 0.6 mg/dL (0.2-1); TOT PROT 6.8 g/dl (6.4-8.2)
[2021-05-04] MEDS: AMINO ACIDS/PROTEIN HYDROLYS 30 ML LIQUID.PKT GT SCH (09:00)
[2021-05-04] MEDS ORDERED: PT OWN MED DRAWER 7, Y5N ONE (09:14)
[2021-05-04] MEDS: METOPROLOL TARTRATE 5 MG/5 ML VIAL IVPUSH PRN (09:15)
[2021-05-04] MEDS: MULTIVIT-MINERALS ORAL LIQUID PEG SCH (09:37)
[2021-05-04] MEDS: METOPROLOL TARTRATE 25 MG TABLET (FP) PEG SCH ×2 (09:37→21:23)
[2021-05-04] MEDS: FAMOTIDINE 20 MG/50 ML IVPB 20 MG/50 ML MG IVPB SCH ×2 (09:37→21:23)
[2021-05-04] MEDS ORDERED: CEFTRIAXONE 1,000 MG in DEXTROSE 5%-WATER - 50 ML IVPB ONE (09:42)
[2021-05-04] MEDS ORDERED: dilTIAZem HCL 30 MG TABLET PO ONE (09:45)
[2021-05-04] MEDS ORDERED: dilTIAZem HCL 30 MG TABLET NR ONE (09:45)
[2021-05-04] MEDS ORDERED: dilTIAZem HCL 30 MG TABLET PO SCH (12:00)
[2021-05-04] MEDS: dilTIAZem HCL 30 MG TABLET NR SCH ×2 (16:11→21:23)
[2021-05-04 17:24] LABS: EPI CELLS 23 /uL (0-25.1); HYALINE CASTS 19 /uL (0-3.1); PH,URINE 6.5 (5.0-8.0); URINE APPEARANCE TURBID; URINE BACTERIA >9,000 /uL (0-1359); URINE BILIRUBIN NEGATIVE (NEGATIVE); URINE COLOR DK YELLOW; URINE GLUCOSE (UA) NEGATIVE (NEGATIVE); URINE KETONE TRACE (NEGATIVE); URINE LEUK ESTERASE NEGATIVE (NEGATIVE); URINE NITRITE POSITIVE (NEGATIVE); URINE PROTEIN TRACE (NEGATIVE); URINE RBC 6 /uL (0-23.9); URINE WBC 14 /uL (0-25.8)
[2021-05-04] MEDS ORDERED: ACETAMINOPHEN 1000 MG/100 ML BAG IVPB ONE (22:38)
[2021-05-05] MEDS: METOPROLOL TARTRATE 5 MG/5 ML VIAL IVPUSH PRN ×3 (03:45→14:55)
[2021-05-05] MEDS: dilTIAZem HCL 30 MG TABLET NR SCH ×4 (04:35→21:22)
[2021-05-05] MEDS: LORazepam 1 MG TABLET GT SCH ×4 (06:33→23:45)
[2021-05-05] MEDS: HEPARIN NA (PORCINE) 5,000 UNITS/ML 1ML VIAL SQ SCH ×3 (06:33→21:22)
[2021-05-05 07:16] LABS: BASO % 0.8 % (0-2.0); EOS % 0.5 % (0-4.5); HEMATOCRIT 32.9 % (35.4-49); HEMOGLOBIN 11.2 GM/dL (11.7-16.9); LYMPH % 14.3 % (8-40); MCH 29.3 pg (25.7-33.7); MEAN CELL VOLUME 86.2 fl (80-96); MEAN PLT VOLUME 8.5 fl (7.5-11.1); NEUT % 77.4 % (42.8-82.8); PLATELET COUNT 336 10^3/uL (134-434); RBC 3.82 M/mm3 (4.00-5.60); RDW 14.9 % (11.9-15.9); WHITE BLOOD COUNT 9.1 K/mm3 (4.0-10.0)
[2021-05-05 07:41] LABS: ALBUMIN 2.8 g/dl (3.4-5.0); CALCIUM 9.1 mg/dL (8.5-10.1)
[2021-05-05 07:42] LABS: BLOOD UREA NITROGEN 16.7 mg/dL (7-18); MAGNESIUM 2.2 mg/dL (1.8-2.4)
[2021-05-05 07:44] LABS: CREATININE 0.8 mg/dL (0.55-1.3); PHOSPHOROUS 3.8 mg/dL (2.5-4.9)
[2021-05-05 07:46] LABS: BILIRUBIN,TOTAL 0.6 mg/dL (0.2-1); TOT PROT 6.7 g/dl (6.4-8.2)
[2021-05-05] MEDS: AMINO ACIDS/PROTEIN HYDROLYS 30 ML LIQUID.PKT GT SCH (09:05)
[2021-05-05] MEDS: FAMOTIDINE 20 MG/50 ML IVPB 20 MG/50 ML MG IVPB SCH ×2 (09:37→21:22)
[2021-05-05] MEDS: MULTIVIT-MINERALS ORAL LIQUID PEG SCH (11:00)
[2021-05-05] MEDS: ACETAMINOPHEN 1000 MG/100 ML BAG IVPB PRN (11:54)
[2021-05-05] MEDS ORDERED: ACETAMINOPHEN 1000 MG/100 ML BAG IVPB PRN (16:13)
[2021-05-05] MEDS ORDERED: METOPROLOL TARTRATE 5 MG/5 ML VIAL IVPUSH PRN (16:13)
[2021-05-05] MEDS ORDERED: dilTIAZem HCL 50 MG/10 ML - 10 ML VIAL IVPUSH ONE (20:23)
[2021-05-06] MEDS: dilTIAZem HCL 30 MG TABLET NR SCH (04:15)
[2021-05-06] MEDS: LORazepam 1 MG TABLET GT SCH ×3 (04:55→18:31)
[2021-05-06] MEDS ORDERED: dilTIAZem HCL 50 MG/10 ML - 10 ML VIAL IVPUSH ONE (05:40)
[2021-05-06] MEDS: HEPARIN NA (PORCINE) 5,000 UNITS/ML 1ML VIAL SQ SCH ×3 (05:55→21:32)
[2021-05-06] MEDS ORDERED: METOPROLOL TARTRATE 25 MG TABLET (FP) PO ONE ×2 (06:50→07:11)
[2021-05-06] MEDS ORDERED: AMINO ACIDS/PROTEIN HYDROLYS 30 ML LIQUID.PKT GT SCH (08:00)
[2021-05-06] MEDS ORDERED: dilTIAZem HCL 30 MG TABLET NR SCH (08:15)
[2021-05-06] MEDS: dilTIAZem HCL 60 MG TABLET NR SCH ×3 (08:47→21:32)
[2021-05-06 09:35] LABS: BASO % 0.8 % (0-2.0); EOS % 0.6 % (0-4.5); HEMOGLOBIN 10.8 GM/dL (11.7-16.9); LYMPH % 13.2 % (8-40); MCH 29.5 pg (25.7-33.7); MCHC 33.9 g/dl (32.0-35.9); MEAN CELL VOLUME 86.9 fl (80-96); MEAN PLT VOLUME 8.5 fl (7.5-11.1); MONO % 7.7 % (3.8-10.2); NEUT % 77.7 % (42.8-82.8); PLATELET COUNT 293 10^3/uL (134-434); RBC 3.68 M/mm3 (4.00-5.60); RDW 14.9 % (11.9-15.9); WHITE BLOOD COUNT 8.5 K/mm3 (4.0-10.0)
[2021-05-06] MEDS ORDERED: MULTIVIT-MINERALS ORAL LIQUID PEG SCH (10:00)
[2021-05-06 10:15] LABS: BLOOD UREA NITROGEN 16.6 mg/dL (7-18); CALCIUM 8.8 mg/dL (8.5-10.1)
[2021-05-06 10:17] LABS: PHOSPHOROUS 3.3 mg/dL (2.5-4.9)
[2021-05-06 10:18] LABS: BILIRUBIN,TOTAL 0.8 mg/dL (0.2-1); CREATININE 0.8 mg/dL (0.55-1.3); TOT PROT 6.8 g/dl (6.4-8.2)
[2021-05-06 10:19] LABS: MAGNESIUM 2.3 mg/dL (1.8-2.4)
[2021-05-06] MEDS ORDERED: PT OWN MED DRAWER 7, Y5N ONE (11:36)
[2021-05-06] MEDS: FAMOTIDINE 20 MG/50 ML IVPB 20 MG/50 ML MG IVPB SCH ×2 (11:42→21:33)
[2021-05-06] MEDS: METOPROLOL TARTRATE 5 MG/5 ML VIAL IVPUSH PRN (14:08)
[2021-05-06] MEDS: ACETAMINOPHEN 1000 MG/100 ML BAG IVPB PRN (14:09)
[2021-05-06] MEDS ORDERED: MIDAZOLAM HCL 2 MG/2 ML SINGLE DOSE VIAL IVPUSH ONE ×2 (14:28→15:08)
[2021-05-06] MEDS ORDERED: MIDAZOLAM HCL 2 MG/2 ML SINGLE DOSE VIAL ONE (14:29)
[2021-05-07] MEDS: LORazepam 1 MG TABLET GT SCH ×4 (00:07→17:16)
[2021-05-07] MEDS: dilTIAZem HCL 60 MG TABLET NR SCH ×4 (00:07→17:16)
[2021-05-07] MEDS: HEPARIN NA (PORCINE) 5,000 UNITS/ML 1ML VIAL SQ SCH ×3 (05:09→21:18)
[2021-05-07] MEDS ORDERED: PT OWN MED DRAWER 7, Y5N ONE (09:37)
[2021-05-07] MEDS: MULTIVIT-MINERALS ORAL LIQUID PEG SCH (09:47)
[2021-05-07] MEDS: AMINO ACIDS/PROTEIN HYDROLYS 30 ML LIQUID.PKT GT SCH (09:47)
[2021-05-07] MEDS: FAMOTIDINE 20 MG/50 ML IVPB 20 MG/50 ML MG IVPB SCH ×2 (10:41→21:18)
[2021-05-07] MEDS ORDERED: ACETAMINOPHEN 1000 MG/100 ML BAG IVPB ONE (16:46)
[2021-05-08] MEDS: LORazepam 1 MG TABLET GT SCH ×5 (00:04→22:48)
[2021-05-08] MEDS: dilTIAZem HCL 60 MG TABLET NR SCH ×5 (00:04→23:09)
[2021-05-08] MEDS: HEPARIN NA (PORCINE) 5,000 UNITS/ML 1ML VIAL SQ SCH ×3 (05:34→22:48)
[2021-05-08 07:11] LABS: ALBUMIN 3.1 g/dl (3.4-5.0); CALCIUM 8.6 mg/dL (8.5-10.1)
[2021-05-08 07:12] LABS: BASO % 0.8 % (0-2.0); BLOOD UREA NITROGEN 18.8 mg/dL (7-18); EOS % 0.5 % (0-4.5); HEMATOCRIT 34.2 % (35.4-49); HEMOGLOBIN 11.5 GM/dL (11.7-16.9); MAGNESIUM 2.5 mg/dL (1.8-2.4); MCH 29.4 pg (25.7-33.7); MCHC 33.5 g/dl (32.0-35.9); MEAN CELL VOLUME 87.6 fl (80-96); MEAN PLT VOLUME 8.5 fl (7.5-11.1); MONO % 10.7 % (3.8-10.2); PLATELET COUNT 272 10^3/uL (134-434); RBC 3.91 M/mm3 (4.00-5.60); RDW 15.1 % (11.9-15.9)
[2021-05-08 07:15] LABS: CREATININE 0.9 mg/dL (0.55-1.3); PHOSPHOROUS 3.1 mg/dL (2.5-4.9)
[2021-05-08 07:16] LABS: BILIRUBIN,TOTAL 0.8 mg/dL (0.2-1); TOT PROT 7.1 g/dl (6.4-8.2)
[2021-05-08] MEDS ORDERED: PT OWN MED DRAWER 7, Y5N ONE ×2 (07:23→09:42)
[2021-05-08] MEDS: AMINO ACIDS/PROTEIN HYDROLYS 30 ML LIQUID.PKT GT SCH (09:00)
[2021-05-08] MEDS: FAMOTIDINE 20 MG/50 ML IVPB 20 MG/50 ML MG IVPB SCH ×2 (09:54→22:43)
[2021-05-08] MEDS: MULTIVIT-MINERALS ORAL LIQUID PEG SCH (09:55)
[2021-05-08] MEDS: METOPROLOL TARTRATE 5 MG/5 ML VIAL IVPUSH PRN ×3 (10:22→18:17)
[2021-05-08] MEDS ORDERED: IBUPROFEN 800 MG/8 ML IJ IVPB PRN (13:15)
[2021-05-09] MEDS: HEPARIN NA (PORCINE) 5,000 UNITS/ML 1ML VIAL SQ SCH ×3 (06:20→22:55)
[2021-05-09] MEDS: LORazepam 1 MG TABLET GT SCH ×4 (06:20→22:55)
[2021-05-09] MEDS: dilTIAZem HCL 60 MG TABLET NR SCH ×3 (06:20→17:35)
[2021-05-09 06:48] LABS: BASO % 0.6 % (0-2.0); EOS % 0.9 % (0-4.5); HEMATOCRIT 34.9 % (35.4-49); HEMOGLOBIN 11.4 GM/dL (11.7-16.9); LYMPH % 11.3 % (8-40); MCH 29.1 pg (25.7-33.7); MCHC 32.6 g/dl (32.0-35.9); MEAN CELL VOLUME 89.2 fl (80-96); MEAN PLT VOLUME 8.6 fl (7.5-11.1); MONO % 9.8 % (3.8-10.2); NEUT % 77.4 % (42.8-82.8); PLATELET COUNT 249 10^3/uL (134-434); RBC 3.91 M/mm3 (4.00-5.60); WHITE BLOOD COUNT 11.4 K/mm3 (4.0-10.0)
[2021-05-09 07:03] LABS: CALCIUM 8.6 mg/dL (8.5-10.1)
[2021-05-09 07:04] LABS: BLOOD UREA NITROGEN 16.5 mg/dL (7-18); MAGNESIUM 2.5 mg/dL (1.8-2.4)
[2021-05-09 07:07] LABS: CREATININE 0.7 mg/dL (0.55-1.3); PHOSPHOROUS 3.4 mg/dL (2.5-4.9)
[2021-05-09 07:08] LABS: BILIRUBIN,TOTAL 0.6 mg/dL (0.2-1); TOT PROT 6.9 g/dl (6.4-8.2)
[2021-05-09] MEDS: METOPROLOL TARTRATE 5 MG/5 ML VIAL IVPUSH PRN ×2 (08:39→18:48)
[2021-05-09] MEDS: AMINO ACIDS/PROTEIN HYDROLYS 30 ML LIQUID.PKT GT SCH (08:40)
[2021-05-09] MEDS: MULTIVIT-MINERALS ORAL LIQUID PEG SCH (10:00)
[2021-05-09] MEDS: FAMOTIDINE 20 MG/50 ML IVPB 20 MG/50 ML MG IVPB SCH ×2 (10:00→22:54)
[2021-05-09] MEDS: POLYETHYLENE GLYCOL (HEALTHYLAX) 3350 17 GM PACKET PO SCH (17:35)
[2021-05-10] MEDS: dilTIAZem HCL 60 MG TABLET NR SCH ×4 (00:57→17:00)
[2021-05-10] MEDS ORDERED: LORazepam 1 MG TABLET GT ONE (03:29)
[2021-05-10] MEDS: METOPROLOL TARTRATE 5 MG/5 ML VIAL IVPUSH PRN ×3 (03:57→16:16)
[2021-05-10] MEDS: LORazepam 1 MG TABLET GT SCH ×4 (05:15→23:20)
[2021-05-10] MEDS: HEPARIN NA (PORCINE) 5,000 UNITS/ML 1ML VIAL SQ SCH (05:15)
[2021-05-10] MEDS ORDERED: HEPARIN NA (PORCINE) 5,000 UNITS/ML 1ML VIAL IVPUSH PRN ×3 (05:37→13:44)
[2021-05-10] MEDS ORDERED: HEPARIN SOD,PORK IN 0.45% NACL 25,000 UNITS/500 ML INFUS.BAG IVPB SCH (05:45)
[2021-05-10 06:45] LABS: BASO % 0.6 % (0-2.0); EOS % 0.9 % (0-4.5); HEMATOCRIT 33.3 % (35.4-49); HEMOGLOBIN 11.2 GM/dL (11.7-16.9); LYMPH % 11.9 % (8-40); MCH 29.2 pg (25.7-33.7); MCHC 33.5 g/dl (32.0-35.9); MEAN CELL VOLUME 87.2 fl (80-96); MEAN PLT VOLUME 8.4 fl (7.5-11.1); MONO % 9.6 % (3.8-10.2); PLATELET COUNT 211 10^3/uL (134-434); RBC 3.82 M/mm3 (4.00-5.60); RDW 15.3 % (11.9-15.9); WHITE BLOOD COUNT 7.3 K/mm3 (4.0-10.0)
[2021-05-10 06:48] LABS: ALBUMIN 2.8 g/dl (3.4-5.0); CALCIUM 8.6 mg/dL (8.5-10.1)
[2021-05-10 06:49] LABS: MAGNESIUM 2.2 mg/dL (1.8-2.4)
[2021-05-10 06:51] LABS: CREATININE 0.7 mg/dL (0.55-1.3); PHOSPHOROUS 3.4 mg/dL (2.5-4.9)
[2021-05-10 06:52] LABS: BILIRUBIN,TOTAL 0.6 mg/dL (0.2-1); TOT PROT 6.5 g/dl (6.4-8.2)
[2021-05-10] MEDS: AMINO ACIDS/PROTEIN HYDROLYS 30 ML LIQUID.PKT GT SCH ×2 (08:34→08:59)
[2021-05-10] MEDS: MULTIVIT-MINERALS ORAL LIQUID PEG SCH (09:13)
[2021-05-10] MEDS: FAMOTIDINE 20 MG/50 ML IVPB 20 MG/50 ML MG IVPB SCH ×2 (09:13→21:44)
[2021-05-10] MEDS: POLYETHYLENE GLYCOL (HEALTHYLAX) 3350 17 GM PACKET PO SCH (09:13)
[2021-05-10] MEDS ORDERED: BENZOIN/ALOE VERA/STORAX/TOLU 58 ML BOTTLE ONE (10:40)
[2021-05-10] MEDS: HEPARIN INFUSION - 25,000 UNITS/500 ML INFUS.BAG IVPB SCH ×2 (14:51→21:45)
[2021-05-10] MEDS: HEPARIN NA (PORCINE) 5,000 UNITS/ML 1ML VIAL IVPUSH PRN (21:46)
[2021-05-11] MEDS: dilTIAZem HCL 60 MG TABLET NR SCH ×2 (00:31→05:14)
[2021-05-11] MEDS: LORazepam 1 MG TABLET GT SCH ×3 (05:14→18:19)
[2021-05-11 06:49] LABS: BASO % 1.1 % (0-2.0); EOS % 3.1 % (0-4.5); HEMATOCRIT 30.2 % (35.4-49); HEMOGLOBIN 10.1 GM/dL (11.7-16.9); MCH 29.8 pg (25.7-33.7); MCHC 33.5 g/dl (32.0-35.9); MEAN CELL VOLUME 88.9 fl (80-96); MEAN PLT VOLUME 8.8 fl (7.5-11.1); MONO % 11.7 % (3.8-10.2); NEUT % 57.1 % (42.8-82.8); PLATELET COUNT 210 10^3/uL (134-434); RDW 15.2 % (11.9-15.9)
[2021-05-11 07:21] LABS: ALBUMIN 2.6 g/dl (3.4-5.0); CREATININE 0.6 mg/dL (0.55-1.3)
[2021-05-11 07:22] LABS: BILIRUBIN,TOTAL 0.4 mg/dL (0.2-1); CALCIUM 8.3 mg/dL (8.5-10.1)
[2021-05-11 07:23] LABS: BLOOD UREA NITROGEN 16.2 mg/dL (7-18); MAGNESIUM 2.6 mg/dL (1.8-2.4); TOT PROT 6.1 g/dl (6.4-8.2)
[2021-05-11 07:24] LABS: PHOSPHOROUS 2.9 mg/dL (2.5-4.9)
[2021-05-11] MEDS ORDERED: PT OWN MED DRAWER 7, Y5N ONE ×2 (09:04→09:50)
[2021-05-11] MEDS: AMINO ACIDS/PROTEIN HYDROLYS 30 ML LIQUID.PKT GT SCH (09:48)
[2021-05-11] MEDS: FAMOTIDINE 20 MG/50 ML IVPB 20 MG/50 ML MG IVPB SCH ×2 (09:48→21:36)
[2021-05-11] MEDS: POLYETHYLENE GLYCOL (HEALTHYLAX) 3350 17 GM PACKET PO SCH (09:48)
[2021-05-11] MEDS: MULTIVIT-MINERALS ORAL LIQUID PEG SCH (10:53)
[2021-05-11] MEDS: dilTIAZem HCL 30 MG TABLET NR SCH ×2 (11:00→18:19)
[2021-05-11] MEDS: HEPARIN INFUSION - 25,000 UNITS/500 ML INFUS.BAG IVPB SCH ×2 (11:41→21:36)
[2021-05-11] MEDS: METOPROLOL TARTRATE 5 MG/5 ML VIAL IVPUSH PRN (18:19)
[2021-05-12] MEDS: dilTIAZem HCL 30 MG TABLET NR SCH ×5 (01:06→23:09)
[2021-05-12] MEDS: LORazepam 1 MG TABLET GT SCH ×5 (05:15→23:09)
[2021-05-12] MEDS ORDERED: PT OWN MED DRAWER 7, Y5N ONE (05:35)
[2021-05-12 07:12] LABS: EOS % 2.3 % (0-4.5); HEMATOCRIT 33.1 % (35.4-49); LYMPH % 25.8 % (8-40); MCH 29.7 pg (25.7-33.7); MCHC 33.4 g/dl (32.0-35.9); MEAN CELL VOLUME 89.1 fl (80-96); MEAN PLT VOLUME 8.7 fl (7.5-11.1); MONO % 9.7 % (3.8-10.2); NEUT % 61.2 % (42.8-82.8); PLATELET COUNT 238 10^3/uL (134-434); RBC 3.71 M/mm3 (4.00-5.60); RDW 15.6 % (11.9-15.9); WHITE BLOOD COUNT 5.7 K/mm3 (4.0-10.0)
[2021-05-12 07:39] LABS: BLOOD UREA NITROGEN 13.8 mg/dL (7-18)
[2021-05-12 07:40] LABS: ALBUMIN 2.9 g/dl (3.4-5.0)
[2021-05-12 07:41] LABS: CALCIUM 8.5 mg/dL (8.5-10.1); MAGNESIUM 2.2 mg/dL (1.8-2.4)
[2021-05-12 07:43] LABS: PHOSPHOROUS 2.7 mg/dL (2.5-4.9)
[2021-05-12 07:44] LABS: CREATININE 0.6 mg/dL (0.55-1.3)
[2021-05-12 07:45] LABS: TOT PROT 6.7 g/dl (6.4-8.2)
[2021-05-12 07:48] LABS: BILIRUBIN,TOTAL 0.9 mg/dL (0.2-1)
[2021-05-12] MEDS: FAMOTIDINE 20 MG/50 ML IVPB 20 MG/50 ML MG IVPB SCH (10:34)
[2021-05-12] MEDS: AMINO ACIDS/PROTEIN HYDROLYS 30 ML LIQUID.PKT GT SCH (10:34)
[2021-05-12] MEDS: MULTIVIT-MINERALS ORAL LIQUID PEG SCH (10:35)
[2021-05-12] MEDS: POLYETHYLENE GLYCOL (HEALTHYLAX) 3350 17 GM PACKET PO SCH (10:35)
[2021-05-12] MEDS: HEPARIN NA (PORCINE) 5,000 UNITS/ML 1ML VIAL IVPUSH PRN (10:38)
[2021-05-12] MEDS: HEPARIN INFUSION - 25,000 UNITS/500 ML INFUS.BAG IVPB SCH ×2 (11:01→17:32)
[2021-05-12] MEDS: METOPROLOL TARTRATE 5 MG/5 ML VIAL IVPUSH PRN (13:37)
[2021-05-12] MEDS: FAMOTIDINE 40 MG/5 ML ORAL SUSPENSION PEG SCH (17:32)
[2021-05-12] MEDS: APIXABAN 5 MG TABLET PO SCH (21:53)
[2021-05-13] MEDS: dilTIAZem HCL 30 MG TABLET NR SCH ×4 (05:59→23:20)
[2021-05-13] MEDS: LORazepam 1 MG TABLET GT SCH ×4 (05:59→23:20)
[2021-05-13 06:22] LABS: HEMATOCRIT 36.4 % (35.4-49); HEMOGLOBIN 12.2 GM/dL (11.7-16.9); MCH 29.8 pg (25.7-33.7); MCHC 33.6 g/dl (32.0-35.9); MEAN CELL VOLUME 88.7 fl (80-96); MEAN PLT VOLUME 8.5 fl (7.5-11.1); PLATELET COUNT 267 10^3/uL (134-434); RDW 15.6 % (11.9-15.9); WHITE BLOOD COUNT 8.4 K/mm3 (4.0-10.0)
[2021-05-13] MEDS: AMINO ACIDS/PROTEIN HYDROLYS 30 ML LIQUID.PKT GT SCH (09:06)
[2021-05-13] MEDS ORDERED: MIDAZOLAM HCL 2 MG/2 ML SINGLE DOSE VIAL IVPUSH ONE ×2 (09:39→19:47)
[2021-05-13] MEDS ORDERED: PT OWN MED DRAWER 7, Y5N ONE ×2 (09:47→09:57)
[2021-05-13] MEDS: MULTIVIT-MINERALS ORAL LIQUID PEG SCH (09:59)
[2021-05-13] MEDS: FAMOTIDINE 40 MG/5 ML ORAL SUSPENSION PEG SCH (10:00)
[2021-05-13] MEDS: APIXABAN 5 MG TABLET PO SCH ×2 (10:00→21:11)
[2021-05-13] MEDS: POLYETHYLENE GLYCOL (HEALTHYLAX) 3350 17 GM PACKET PO SCH (10:00)
[2021-05-13] MEDS: METOPROLOL TARTRATE 5 MG/5 ML VIAL IVPUSH PRN ×2 (10:16→17:59)
[2021-05-13 10:44] LABS: BLOOD UREA NITROGEN 15.8 mg/dL (7-18); CREATININE 0.8 mg/dL (0.55-1.3); GLUCOSE,RANDOM 131 mg/dL (74-106); SODIUM 147 mmol/L (136-145)
[2021-05-13 10:45] LABS: ALBUMIN 3.3 g/dl (3.4-5.0); BILIRUBIN,TOTAL 0.5 mg/dL (0.2-1); CALCIUM 9.3 mg/dL (8.5-10.1); CHLORIDE 112 mmol/L (98-107); CO2 28 mmol/L (21-32); MAGNESIUM 2.4 mg/dL (1.8-2.4); PHOSPHOROUS 3.4 mg/dL (2.5-4.9); TOT PROT 7.3 g/dl (6.4-8.2)
[2021-05-13 10:46] LABS: ALK PHOS 106 U/L (45-117); SGOT/AST 44 U/L (15-37); SGPT/ALT 60 U/L (13-61)
[2021-05-13 15:57] LABS: PLATELET ESTIMATE ADEQUATE
[2021-05-13] MEDS: ACETAMINOPHEN 1000 MG/100 ML BAG IVPB PRN (16:22)
[2021-05-14] MEDS: ACETAMINOPHEN 1000 MG/100 ML BAG IVPB PRN ×3 (04:10→17:24)
[2021-05-14] MEDS: dilTIAZem HCL 30 MG TABLET NR SCH ×4 (06:05→23:44)
[2021-05-14] MEDS: LORazepam 1 MG TABLET GT SCH ×4 (06:05→23:44)
[2021-05-14 06:45] LABS: HEMATOCRIT 35.1 % (35.4-49); HEMOGLOBIN 11.9 GM/dL (11.7-16.9); MCH 29.8 pg (25.7-33.7); MCHC 33.8 g/dl (32.0-35.9); MEAN CELL VOLUME 88.3 fl (80-96); MEAN PLT VOLUME 8.4 fl (7.5-11.1); PLATELET COUNT 290 10^3/uL (134-434); RBC 3.97 M/mm3 (4.00-5.60); RDW 15.6 % (11.9-15.9); WHITE BLOOD COUNT 7.3 K/mm3 (4.0-10.0)
[2021-05-14 07:00] LABS: BLOOD UREA NITROGEN 18.6 mg/dL (7-18)
[2021-05-14 07:01] LABS: CALCIUM 8.9 mg/dL (8.5-10.1); CREATININE 0.8 mg/dL (0.55-1.3)
[2021-05-14 07:02] LABS: ALBUMIN 3.1 g/dl (3.4-5.0); BILIRUBIN,TOTAL 0.5 mg/dL (0.2-1); MAGNESIUM 2.3 mg/dL (1.8-2.4); PHOSPHOROUS 3.2 mg/dL (2.5-4.9); TOT PROT 6.9 g/dl (6.4-8.2)
[2021-05-14] MEDS: AMINO ACIDS/PROTEIN HYDROLYS 30 ML LIQUID.PKT GT SCH (08:14)
[2021-05-14] MEDS: METOPROLOL TARTRATE 5 MG/5 ML VIAL IVPUSH PRN ×2 (08:57→21:19)
[2021-05-14] MEDS ORDERED: PT OWN MED DRAWER 7, Y5N ONE (10:14)
[2021-05-14] MEDS: APIXABAN 5 MG TABLET PO SCH ×2 (10:25→21:18)
[2021-05-14] MEDS: FAMOTIDINE 40 MG/5 ML ORAL SUSPENSION PEG SCH (10:25)
[2021-05-14] MEDS: MULTIVIT-MINERALS ORAL LIQUID PEG SCH (10:25)
[2021-05-14] MEDS: POLYETHYLENE GLYCOL (HEALTHYLAX) 3350 17 GM PACKET PO SCH (10:26)
[2021-05-15] MEDS: ACETAMINOPHEN 1000 MG/100 ML BAG IVPB PRN ×3 (00:38→17:00)
[2021-05-15] MEDS: METOPROLOL TARTRATE 5 MG/5 ML VIAL IVPUSH PRN ×2 (02:52→20:04)
[2021-05-15] MEDS: dilTIAZem HCL 30 MG TABLET NR SCH ×4 (05:40→23:17)
[2021-05-15] MEDS: LORazepam 1 MG TABLET GT SCH ×4 (05:40→23:17)
[2021-05-15 06:41] LABS: BASO % 0.6 % (0-2.0); EOS % 1.2 % (0-4.5); HEMATOCRIT 34.8 % (35.4-49); HEMOGLOBIN 11.9 GM/dL (11.7-16.9); LYMPH % 14.9 % (8-40); MCH 30.1 pg (25.7-33.7); MEAN CELL VOLUME 88.5 fl (80-96); MEAN PLT VOLUME 8.2 fl (7.5-11.1); MONO % 10.9 % (3.8-10.2); NEUT % 72.4 % (42.8-82.8); PLATELET COUNT 346 10^3/uL (134-434); RBC 3.94 M/mm3 (4.00-5.60); RDW 15.9 % (11.9-15.9)
[2021-05-15 06:56] LABS: ALBUMIN 3.2 g/dl (3.4-5.0); CALCIUM 9.1 mg/dL (8.5-10.1)
[2021-05-15 06:57] LABS: BLOOD UREA NITROGEN 18.6 mg/dL (7-18); MAGNESIUM 2.4 mg/dL (1.8-2.4)
[2021-05-15 07:00] LABS: CREATININE 0.8 mg/dL (0.55-1.3); PHOSPHOROUS 3.1 mg/dL (2.5-4.9)
[2021-05-15 07:01] LABS: BILIRUBIN,TOTAL 0.9 mg/dL (0.2-1); TOT PROT 7.1 g/dl (6.4-8.2)
[2021-05-15] MEDS ORDERED: PT OWN MED DRAWER 7, Y5N ONE (08:50)
[2021-05-15] MEDS: FAMOTIDINE 40 MG/5 ML ORAL SUSPENSION PEG SCH (09:55)
[2021-05-15] MEDS: AMINO ACIDS/PROTEIN HYDROLYS 30 ML LIQUID.PKT GT SCH (09:55)
[2021-05-15] MEDS: MULTIVIT-MINERALS ORAL LIQUID PEG SCH (09:56)
[2021-05-15] MEDS: APIXABAN 5 MG TABLET PO SCH ×2 (09:56→21:16)
[2021-05-15] MEDS: POLYETHYLENE GLYCOL (HEALTHYLAX) 3350 17 GM PACKET PO SCH (09:57)
[2021-05-16] MEDS: LORazepam 1 MG TABLET GT SCH ×4 (05:39→23:20)
[2021-05-16 06:07] LABS: HEMATOCRIT 35.1 % (35.4-49); HEMOGLOBIN 12.2 GM/dL (11.7-16.9); MCH 30.4 pg (25.7-33.7); MCHC 34.6 g/dl (32.0-35.9); MEAN CELL VOLUME 87.9 fl (80-96); MEAN PLT VOLUME 8.1 fl (7.5-11.1); PLATELET COUNT 362 10^3/uL (134-434); RDW 15.4 % (11.9-15.9); WHITE BLOOD COUNT 10.6 K/mm3 (4.0-10.0)
[2021-05-16 06:37] LABS: ALBUMIN 3.2 g/dl (3.4-5.0)
[2021-05-16 06:38] LABS: BILIRUBIN,TOTAL 0.6 mg/dL (0.2-1); TOT PROT 7.1 g/dl (6.4-8.2)
[2021-05-16 06:40] LABS: CALCIUM 8.9 mg/dL (8.5-10.1); CREATININE 0.7 mg/dL (0.55-1.3); PHOSPHOROUS 3.4 mg/dL (2.5-4.9)
[2021-05-16 06:41] LABS: MAGNESIUM 2.2 mg/dL (1.8-2.4)
[2021-05-16 06:47] LABS: BLOOD UREA NITROGEN 21.7 mg/dL (7-18)
[2021-05-16] MEDS ORDERED: dilTIAZem HCL 60 MG TABLET NR SCH (06:47)
[2021-05-16] MEDS: POLYETHYLENE GLYCOL (HEALTHYLAX) 3350 17 GM PACKET PO SCH (09:26)
[2021-05-16] MEDS ORDERED: PT OWN MED DRAWER 7, Y5N ONE (09:29)
[2021-05-16] MEDS: AMINO ACIDS/PROTEIN HYDROLYS 30 ML LIQUID.PKT GT SCH (09:42)
[2021-05-16] MEDS: APIXABAN 5 MG TABLET PO SCH ×2 (09:43→21:29)
[2021-05-16] MEDS: FAMOTIDINE 40 MG/5 ML ORAL SUSPENSION PEG SCH (09:43)
[2021-05-16] MEDS: MULTIVIT-MINERALS ORAL LIQUID PEG SCH (10:43)
[2021-05-16] MEDS: dilTIAZem HCL 30 MG TABLET NR SCH ×3 (12:43→23:35)
[2021-05-17] MEDS: dilTIAZem HCL 30 MG TABLET NR SCH ×5 (06:04→23:09)
[2021-05-17] MEDS: LORazepam 1 MG TABLET GT SCH ×4 (06:04→22:47)
[2021-05-17 06:32] LABS: HEMATOCRIT 36.5 % (35.4-49); HEMOGLOBIN 12.4 GM/dL (11.7-16.9); MCH 29.9 pg (25.7-33.7); MCHC 33.9 g/dl (32.0-35.9); MEAN CELL VOLUME 88.2 fl (80-96); MEAN PLT VOLUME 8.2 fl (7.5-11.1); PLATELET COUNT 382 10^3/uL (134-434); RBC 4.14 M/mm3 (4.00-5.60); RDW 15.4 % (11.9-15.9); WHITE BLOOD COUNT 9.3 K/mm3 (4.0-10.0)
[2021-05-17 06:57] LABS: CALCIUM 9.1 mg/dL (8.5-10.1)
[2021-05-17 06:58] LABS: ALBUMIN 3.3 g/dl (3.4-5.0); BLOOD UREA NITROGEN 22.8 mg/dL (7-18); MAGNESIUM 2.3 mg/dL (1.8-2.4)
[2021-05-17 07:01] LABS: CREATININE 0.7 mg/dL (0.55-1.3); PHOSPHOROUS 3.7 mg/dL (2.5-4.9)
[2021-05-17 07:02] LABS: BILIRUBIN,TOTAL 0.6 mg/dL (0.2-1); TOT PROT 7.1 g/dl (6.4-8.2)
[2021-05-17] MEDS: ACETAMINOPHEN 1000 MG/100 ML BAG IVPB PRN ×2 (08:25→14:30)
[2021-05-17] MEDS: AMINO ACIDS/PROTEIN HYDROLYS 30 ML LIQUID.PKT GT SCH (08:49)
[2021-05-17] MEDS ORDERED: PT OWN MED DRAWER 7, Y5N ONE ×2 (09:09→16:20)
[2021-05-17] MEDS: POLYETHYLENE GLYCOL (HEALTHYLAX) 3350 17 GM PACKET PO SCH (10:56)
[2021-05-17] MEDS: MULTIVIT-MINERALS ORAL LIQUID PEG SCH (10:56)
[2021-05-17] MEDS: APIXABAN 5 MG TABLET PO SCH ×2 (10:56→22:16)
[2021-05-17] MEDS: FAMOTIDINE 40 MG/5 ML ORAL SUSPENSION PEG SCH (11:40)
[2021-05-18] MEDS: METOPROLOL TARTRATE 5 MG/5 ML VIAL IVPUSH PRN ×3 (03:47→13:14)
[2021-05-18] MEDS: LORazepam 1 MG TABLET GT SCH ×4 (05:56→23:50)
[2021-05-18] MEDS: dilTIAZem HCL 30 MG TABLET NR SCH ×3 (05:56→17:49)
[2021-05-18 06:33] LABS: HEMATOCRIT 36.4 % (35.4-49); HEMOGLOBIN 12.2 GM/dL (11.7-16.9); MCHC 33.5 g/dl (32.0-35.9); MEAN CELL VOLUME 89.3 fl (80-96); MEAN PLT VOLUME 8.7 fl (7.5-11.1); PLATELET COUNT 407 10^3/uL (134-434); RBC 4.07 M/mm3 (4.00-5.60); RDW 15.7 % (11.9-15.9); WHITE BLOOD COUNT 10.3 K/mm3 (4.0-10.0)
[2021-05-18 06:56] LABS: ALBUMIN 3.4 g/dl (3.4-5.0); BLOOD UREA NITROGEN 20.6 mg/dL (7-18); MAGNESIUM 2.4 mg/dL (1.8-2.4)
[2021-05-18 06:59] LABS: CREATININE 0.7 mg/dL (0.55-1.3); PHOSPHOROUS 3.4 mg/dL (2.5-4.9)
[2021-05-18 07:01] LABS: BILIRUBIN,TOTAL 0.8 mg/dL (0.2-1); TOT PROT 7.2 g/dl (6.4-8.2)
[2021-05-18] MEDS ORDERED: PT OWN MED DRAWER 7, Y5N ONE (08:58)
[2021-05-18] MEDS: AMINO ACIDS/PROTEIN HYDROLYS 30 ML LIQUID.PKT GT SCH (09:00)
[2021-05-18] MEDS: POLYETHYLENE GLYCOL (HEALTHYLAX) 3350 17 GM PACKET PO SCH (09:07)
[2021-05-18] MEDS: APIXABAN 5 MG TABLET PO SCH ×2 (09:07→21:37)
[2021-05-18] MEDS: MULTIVIT-MINERALS ORAL LIQUID PEG SCH (09:07)
[2021-05-18] MEDS: FAMOTIDINE 40 MG/5 ML ORAL SUSPENSION PEG SCH (09:09)
[2021-05-18] MEDS: ACETAMINOPHEN 1000 MG/100 ML BAG IVPB PRN (13:17)
[2021-05-19] MEDS: METOPROLOL TARTRATE 5 MG/5 ML VIAL IVPUSH PRN ×3 (03:58→17:58)
[2021-05-19] MEDS: ACETAMINOPHEN 1000 MG/100 ML BAG IVPB PRN (04:21)
[2021-05-19] MEDS: LORazepam 1 MG TABLET GT SCH ×4 (05:38→23:43)
[2021-05-19] MEDS: dilTIAZem HCL 30 MG TABLET NR SCH ×5 (06:14→23:43)
[2021-05-19 07:01] LABS: HEMATOCRIT 35.8 % (35.4-49); MCH 30.1 pg (25.7-33.7); MCHC 33.6 g/dl (32.0-35.9); MEAN CELL VOLUME 89.4 fl (80-96); MEAN PLT VOLUME 8.1 fl (7.5-11.1); PLATELET COUNT 428 10^3/uL (134-434); RBC 4.01 M/mm3 (4.00-5.60); RDW 15.3 % (11.9-15.9); WHITE BLOOD COUNT 11.9 K/mm3 (4.0-10.0)
[2021-05-19] MEDS: AMINO ACIDS/PROTEIN HYDROLYS 30 ML LIQUID.PKT GT SCH (09:00)
[2021-05-19] MEDS ORDERED: PT OWN MED DRAWER 7, Y5N ONE (09:29)
[2021-05-19] MEDS: POLYETHYLENE GLYCOL (HEALTHYLAX) 3350 17 GM PACKET PO SCH (09:30)
[2021-05-19] MEDS: MULTIVIT-MINERALS ORAL LIQUID PEG SCH (09:30)
[2021-05-19] MEDS: APIXABAN 5 MG TABLET PO SCH ×2 (09:30→21:37)
[2021-05-19] MEDS: FAMOTIDINE 40 MG/5 ML ORAL SUSPENSION PEG SCH (09:30)
[2021-05-20] MEDS: ACETAMINOPHEN 1000 MG/100 ML BAG IVPB PRN ×2 (06:00→16:58)
[2021-05-20] MEDS: LORazepam 1 MG TABLET GT SCH ×3 (06:00→17:00)
[2021-05-20] MEDS: dilTIAZem HCL 30 MG TABLET NR SCH ×3 (06:01→17:00)
[2021-05-20] MEDS: METOPROLOL TARTRATE 5 MG/5 ML VIAL IVPUSH PRN (06:01)
[2021-05-20 07:30] LABS: HEMATOCRIT 37.4 % (35.4-49); HEMOGLOBIN 12.4 GM/dL (11.7-16.9); MCH 29.4 pg (25.7-33.7); MCHC 33.3 g/dl (32.0-35.9); MEAN CELL VOLUME 88.3 fl (80-96); MEAN PLT VOLUME 8.3 fl (7.5-11.1); PLATELET COUNT 439 10^3/uL (134-434); RBC 4.23 M/mm3 (4.00-5.60); RDW 15.5 % (11.9-15.9); WHITE BLOOD COUNT 16.7 K/mm3 (4.0-10.0)
[2021-05-20 07:56] LABS: BLOOD UREA NITROGEN 17.6 mg/dL (7-18); CALCIUM 9.1 mg/dL (8.5-10.1); MAGNESIUM 2.2 mg/dL (1.8-2.4)
[2021-05-20 08:00] LABS: CREATININE 0.7 mg/dL (0.55-1.3)
[2021-05-20 08:02] LABS: PHOSPHOROUS 3.2 mg/dL (2.5-4.9)
[2021-05-20] MEDS ORDERED: PT OWN MED DRAWER 7, Y5N ONE (08:59)
[2021-05-20] MEDS: FAMOTIDINE 40 MG/5 ML ORAL SUSPENSION PEG SCH (09:02)
[2021-05-20] MEDS: AMINO ACIDS/PROTEIN HYDROLYS 30 ML LIQUID.PKT GT SCH (09:02)
[2021-05-20] MEDS: MULTIVIT-MINERALS ORAL LIQUID PEG SCH (09:02)
[2021-05-20] MEDS: APIXABAN 5 MG TABLET PO SCH ×2 (09:02→21:24)
[2021-05-20] MEDS: POLYETHYLENE GLYCOL (HEALTHYLAX) 3350 17 GM PACKET PO SCH (09:02)
[2021-05-21] MEDS: dilTIAZem HCL 30 MG TABLET NR SCH ×5 (00:08→23:03)
[2021-05-21] MEDS: LORazepam 1 MG TABLET GT SCH ×5 (00:08→22:50)
[2021-05-21 07:08] LABS: HEMATOCRIT 31.6 % (35.4-49); HEMOGLOBIN 10.7 GM/dL (11.7-16.9); MCH 30.3 pg (25.7-33.7); MCHC 33.8 g/dl (32.0-35.9); MEAN CELL VOLUME 89.7 fl (80-96); MEAN PLT VOLUME 8.2 fl (7.5-11.1); PLATELET COUNT 380 10^3/uL (134-434); RBC 3.52 M/mm3 (4.00-5.60); RDW 15.5 % (11.9-15.9); WHITE BLOOD COUNT 11.6 K/mm3 (4.0-10.0)
[2021-05-21 07:31] LABS: BLOOD UREA NITROGEN 14.8 mg/dL (7-18); CALCIUM 8.6 mg/dL (8.5-10.1); MAGNESIUM 2.2 mg/dL (1.8-2.4)
[2021-05-21 07:35] LABS: CREATININE 0.5 mg/dL (0.55-1.3); PHOSPHOROUS 3.2 mg/dL (2.5-4.9)
[2021-05-21] MEDS ORDERED: PT OWN MED DRAWER 7, Y5N ONE (09:47)
[2021-05-21] MEDS: AMINO ACIDS/PROTEIN HYDROLYS 30 ML LIQUID.PKT GT SCH (09:49)
[2021-05-21] MEDS: MULTIVIT-MINERALS ORAL LIQUID PEG SCH (09:49)
[2021-05-21] MEDS: APIXABAN 5 MG TABLET PO SCH ×2 (09:49→22:50)
[2021-05-21] MEDS: FAMOTIDINE 40 MG/5 ML ORAL SUSPENSION PEG SCH (09:49)
[2021-05-21] MEDS: POLYETHYLENE GLYCOL (HEALTHYLAX) 3350 17 GM PACKET PO SCH (09:49)
[2021-05-22] MEDS: LORazepam 1 MG TABLET GT SCH ×4 (05:58→22:54)
[2021-05-22] MEDS: dilTIAZem HCL 30 MG TABLET NR SCH ×4 (05:58→23:16)
[2021-05-22 07:08] LABS: HEMATOCRIT 32.9 % (35.4-49); HEMOGLOBIN 11.3 GM/dL (11.7-16.9); MCH 30.1 pg (25.7-33.7); MCHC 34.3 g/dl (32.0-35.9); MEAN CELL VOLUME 87.7 fl (80-96); PLATELET COUNT 343 10^3/uL (134-434); RBC 3.75 M/mm3 (4.00-5.60); RDW 15.2 % (11.9-15.9); WHITE BLOOD COUNT 10.7 K/mm3 (4.0-10.0)
[2021-05-22 07:18] LABS: BLOOD UREA NITROGEN 14.4 mg/dL (7-18); CALCIUM 8.4 mg/dL (8.5-10.1)
[2021-05-22 07:19] LABS: MAGNESIUM 2.1 mg/dL (1.8-2.4)
[2021-05-22 07:20] LABS: CREATININE 0.6 mg/dL (0.55-1.3)
[2021-05-22 07:22] LABS: PHOSPHOROUS 3.2 mg/dL (2.5-4.9)
[2021-05-22] MEDS: AMINO ACIDS/PROTEIN HYDROLYS 30 ML LIQUID.PKT GT SCH (08:30)
[2021-05-22] MEDS ORDERED: PT OWN MED DRAWER 7, Y5N ONE (10:30)
[2021-05-22] MEDS: MULTIVIT-MINERALS ORAL LIQUID PEG SCH (11:08)
[2021-05-22] MEDS: APIXABAN 5 MG TABLET PO SCH ×2 (11:09→21:55)
[2021-05-22] MEDS: POLYETHYLENE GLYCOL (HEALTHYLAX) 3350 17 GM PACKET PO SCH (11:09)
[2021-05-22] MEDS: FAMOTIDINE 40 MG/5 ML ORAL SUSPENSION PEG SCH (11:09)
[2021-05-22] MEDS ORDERED: morphine SULFATE 4 MG/ML VIAL IVPUSH ONE ×2 (12:15→22:37)
[2021-05-23] MEDS: LORazepam 1 MG TABLET GT SCH ×4 (05:47→22:52)
[2021-05-23] MEDS: dilTIAZem HCL 30 MG TABLET NR SCH ×4 (06:20→23:11)
[2021-05-23 06:52] LABS: HEMATOCRIT 36.2 % (35.4-49); HEMOGLOBIN 12.3 GM/dL (11.7-16.9); MCH 30.3 pg (25.7-33.7); MEAN CELL VOLUME 89.1 fl (80-96); MEAN PLT VOLUME 8.7 fl (7.5-11.1); PLATELET COUNT 459 10^3/uL (134-434); RBC 4.06 M/mm3 (4.00-5.60); RDW 15.5 % (11.9-15.9); WHITE BLOOD COUNT 17.9 K/mm3 (4.0-10.0)
[2021-05-23 07:10] LABS: BLOOD UREA NITROGEN 13.2 mg/dL (7-18); CALCIUM 9.2 mg/dL (8.5-10.1)
[2021-05-23 07:11] LABS: MAGNESIUM 1.9 mg/dL (1.8-2.4)
[2021-05-23 07:13] LABS: CREATININE 0.7 mg/dL (0.55-1.3)
[2021-05-23 07:14] LABS: PHOSPHOROUS 3.6 mg/dL (2.5-4.9)
[2021-05-23] MEDS ORDERED: PT OWN MED DRAWER 7, Y5N ONE ×3 (08:13→14:56)
[2021-05-23] MEDS: AMINO ACIDS/PROTEIN HYDROLYS 30 ML LIQUID.PKT GT SCH (08:35)
[2021-05-23] MEDS ORDERED: morphine CARPU-JECT 4 MG/1 ML DISP.SYRIN IVPUSH PRN (09:07)
[2021-05-23] MEDS: morphine SULFATE 4 MG/ML VIAL IVPUSH PRN ×2 (09:10→22:53)
[2021-05-23] MEDS: APIXABAN 5 MG TABLET PO SCH ×2 (11:33→22:52)
[2021-05-23] MEDS: POLYETHYLENE GLYCOL (HEALTHYLAX) 3350 17 GM PACKET PO SCH (11:33)
[2021-05-23] MEDS: MULTIVIT-MINERALS ORAL LIQUID PEG SCH (12:00)
[2021-05-23] MEDS: FAMOTIDINE 40 MG/5 ML ORAL SUSPENSION PEG SCH (12:00)
[2021-05-24] MEDS: LORazepam 1 MG TABLET GT SCH ×4 (06:31→22:45)
[2021-05-24] MEDS: dilTIAZem HCL 30 MG TABLET NR SCH ×3 (06:33→17:39)
[2021-05-24 06:49] LABS: BASO % 0.6 % (0-2.0); EOS % 0.2 % (0-4.5); HEMATOCRIT 33.1 % (35.4-49); HEMOGLOBIN 11.1 GM/dL (11.7-16.9); LYMPH % 10.4 % (8-40); MCH 29.9 pg (25.7-33.7); MCHC 33.6 g/dl (32.0-35.9); MEAN PLT VOLUME 8.1 fl (7.5-11.1); MONO % 7.3 % (3.8-10.2); NEUT % 81.5 % (42.8-82.8); PLATELET COUNT 424 10^3/uL (134-434); RBC 3.72 M/mm3 (4.00-5.60); RDW 15.6 % (11.9-15.9)
[2021-05-24] MEDS: morphine SULFATE 4 MG/ML VIAL IVPUSH PRN (07:01)
[2021-05-24 07:16] LABS: BLOOD UREA NITROGEN 12.4 mg/dL (7-18); CALCIUM 8.5 mg/dL (8.5-10.1)
[2021-05-24 07:20] LABS: CREATININE 0.6 mg/dL (0.55-1.3)
[2021-05-24] MEDS: FAMOTIDINE 40 MG/5 ML ORAL SUSPENSION PEG SCH (09:00)
[2021-05-24] MEDS: AMINO ACIDS/PROTEIN HYDROLYS 30 ML LIQUID.PKT GT SCH (09:46)
[2021-05-24] MEDS: APIXABAN 5 MG TABLET PO SCH ×2 (09:46→22:23)
[2021-05-24] MEDS: MULTIVIT-MINERALS ORAL LIQUID PEG SCH (09:46)
[2021-05-24] MEDS: POLYETHYLENE GLYCOL (HEALTHYLAX) 3350 17 GM PACKET PO SCH (09:47)
[2021-05-24] MEDS ORDERED: PT OWN MED DRAWER 7, Y5N ONE (22:35)
[2021-05-24] MEDS: AMANTADINE HCL 100MG/10 ML UNIT DOSE CUPS PO SCH (22:44)
[2021-05-25] MEDS: dilTIAZem HCL 30 MG TABLET NR SCH ×4 (00:13→17:51)
[2021-05-25] MEDS: LORazepam 1 MG TABLET GT SCH ×3 (06:45→17:51)
[2021-05-25] MEDS: ACETAMINOPHEN 1000 MG/100 ML BAG IVPB PRN ×2 (07:30→18:43)
[2021-05-25] MEDS: morphine SULFATE 4 MG/ML VIAL IVPUSH PRN ×2 (08:34→14:33)
[2021-05-25] MEDS: METOPROLOL TARTRATE 5 MG/5 ML VIAL IVPUSH PRN (08:35)
[2021-05-25] MEDS ORDERED: PT OWN MED DRAWER 7, Y5N ONE ×2 (09:33→22:04)
[2021-05-25] MEDS: AMINO ACIDS/PROTEIN HYDROLYS 30 ML LIQUID.PKT GT SCH (09:34)
[2021-05-25] MEDS: MULTIVIT-MINERALS ORAL LIQUID PEG SCH (09:34)
[2021-05-25] MEDS: APIXABAN 5 MG TABLET PO SCH ×2 (09:35→22:05)
[2021-05-25] MEDS: POLYETHYLENE GLYCOL (HEALTHYLAX) 3350 17 GM PACKET PO SCH (09:35)
[2021-05-25] MEDS: FAMOTIDINE 40 MG/5 ML ORAL SUSPENSION PEG SCH (09:35)
[2021-05-25] MEDS: AMANTADINE HCL 100MG/10 ML UNIT DOSE CUPS PO SCH (09:50)
[2021-05-25] MEDS ORDERED: clonazePAM 0.5 MG TABLET PO STA (09:55)
[2021-05-25] MEDS ORDERED: clonazePAM 0.5 MG TABLET NGT SCH (22:00)
[2021-05-25] MEDS ORDERED: AMANTADINE HCL 100MG/10 ML UNIT DOSE CUPS PO SCH (22:00)
[2021-05-25] MEDS: Z SL SCH (22:05)
[2021-05-25] MEDS: AMANTADINE HCL 100MG/10 ML UNIT DOSE CUPS PEG SCH (22:06)
[2021-05-26] MEDS: LORazepam 1 MG TABLET GT SCH ×4 (00:13→17:21)
[2021-05-26] MEDS: dilTIAZem HCL 30 MG TABLET NR SCH ×4 (00:13→17:21)
[2021-05-26] MEDS: morphine SULFATE 4 MG/ML VIAL IVPUSH PRN ×3 (04:13→17:20)
[2021-05-26] MEDS ORDERED: AMANTADINE HCL 100MG/10 ML UNIT DOSE CUPS PEG SCH (08:00)
[2021-05-26] MEDS ORDERED: PT OWN MED DRAWER 7, Y5N ONE ×2 (08:57→21:19)
[2021-05-26] MEDS: AMINO ACIDS/PROTEIN HYDROLYS 30 ML LIQUID.PKT GT SCH (08:58)
[2021-05-26] MEDS: APIXABAN 5 MG TABLET PO SCH ×2 (09:02→22:32)
[2021-05-26] MEDS: FAMOTIDINE 40 MG/5 ML ORAL SUSPENSION PEG SCH (09:02)
[2021-05-26] MEDS: Z SL SCH ×2 (09:02→22:32)
[2021-05-26] MEDS: AMANTADINE HCL 100MG/10 ML UNIT DOSE CUPS PEG SCH ×2 (09:02→22:33)
[2021-05-26] MEDS: MULTIVIT-MINERALS ORAL LIQUID PEG SCH (09:02)
[2021-05-26] MEDS: POLYETHYLENE GLYCOL (HEALTHYLAX) 3350 17 GM PACKET PO SCH (09:09)
[2021-05-26] MEDS: METOPROLOL TARTRATE 5 MG/5 ML VIAL IVPUSH PRN (10:55)
[2021-05-26 19:12] LABS: MAGNESIUM 1.8 mg/dL (1.8-2.4)
[2021-05-26 19:15] LABS: PHOSPHOROUS 3.2 mg/dL (2.5-4.9)
[2021-05-27] MEDS: dilTIAZem HCL 30 MG TABLET NR SCH ×4 (00:43→17:45)
[2021-05-27] MEDS: LORazepam 1 MG TABLET GT SCH ×4 (00:43→17:45)
[2021-05-27] MEDS: morphine SULFATE 4 MG/ML VIAL IVPUSH PRN ×2 (03:00→15:15)
[2021-05-27 06:46] LABS: HEMATOCRIT 33.8 % (35.4-49); HEMOGLOBIN 11.3 GM/dL (11.7-16.9); MCH 29.6 pg (25.7-33.7); MCHC 33.3 g/dl (32.0-35.9); MEAN CELL VOLUME 88.8 fl (80-96); MEAN PLT VOLUME 8.1 fl (7.5-11.1); PLATELET COUNT 432 10^3/uL (134-434); RDW 14.9 % (11.9-15.9)
[2021-05-27 07:18] LABS: BLOOD UREA NITROGEN 8.4 mg/dL (7-18); CALCIUM 8.3 mg/dL (8.5-10.1)
[2021-05-27 07:22] LABS: CREATININE 0.5 mg/dL (0.55-1.3)
[2021-05-27] MEDS: AMINO ACIDS/PROTEIN HYDROLYS 30 ML LIQUID.PKT GT SCH (09:15)
[2021-05-27] MEDS: MULTIVIT-MINERALS ORAL LIQUID PEG SCH (09:16)
[2021-05-27] MEDS: FAMOTIDINE 40 MG/5 ML ORAL SUSPENSION PEG SCH (09:16)
[2021-05-27] MEDS: APIXABAN 5 MG TABLET PO SCH ×2 (09:16→22:04)
[2021-05-27] MEDS: POLYETHYLENE GLYCOL (HEALTHYLAX) 3350 17 GM PACKET PO SCH (09:16)
[2021-05-27] MEDS: Z SL SCH ×2 (09:16→22:04)
[2021-05-27] MEDS: AMANTADINE HCL 100MG/10 ML UNIT DOSE CUPS PEG SCH ×2 (09:17→22:05)
[2021-05-27] MEDS ORDERED: cloNIDine-TTS 0.2 MG/24 HOURS PATCH.TDWK TD SCH (10:00)
[2021-05-27] MEDS: dilTIAZem HCL 50 MG/10 ML - 10 ML VIAL IVPUSH PRN (13:46)
[2021-05-28] MEDS: dilTIAZem HCL 30 MG TABLET NR SCH ×4 (00:05→17:14)
[2021-05-28] MEDS: LORazepam 1 MG TABLET GT SCH ×4 (00:05→17:13)
[2021-05-28] MEDS: morphine SULFATE 4 MG/ML VIAL IVPUSH PRN (02:20)
[2021-05-28 07:06] LABS: BLOOD UREA NITROGEN 8.3 mg/dL (7-18); CALCIUM 8.3 mg/dL (8.5-10.1); MAGNESIUM 1.8 mg/dL (1.8-2.4)
[2021-05-28 07:09] LABS: CREATININE 0.5 mg/dL (0.55-1.3); PHOSPHOROUS 3.5 mg/dL (2.5-4.9)
[2021-05-28 07:10] LABS: BILIRUBIN,TOTAL 0.5 mg/dL (0.2-1)
[2021-05-28 07:14] LABS: ALBUMIN 2.5 g/dl (3.4-5.0)
[2021-05-28 07:42] LABS: BASO % 0.6 % (0-2.0); EOS % 0.7 % (0-4.5); HEMOGLOBIN 10.8 GM/dL (11.7-16.9); LYMPH % 16.1 % (8-40); MCH 29.8 pg (25.7-33.7); MCHC 33.9 g/dl (32.0-35.9); MEAN CELL VOLUME 87.9 fl (80-96); MEAN PLT VOLUME 7.9 fl (7.5-11.1); MONO % 10.1 % (3.8-10.2); NEUT % 72.5 % (42.8-82.8); PLATELET COUNT 386 10^3/uL (134-434); RBC 3.64 M/mm3 (4.00-5.60); RDW 15.1 % (11.9-15.9); WHITE BLOOD COUNT 10.2 K/mm3 (4.0-10.0)
[2021-05-28 07:47] LABS: HEMATOCRIT 32.2 % (35.4-49); HEMOGLOBIN 10.9 GM/dL (11.7-16.9); MCH 30.2 pg (25.7-33.7); MEAN CELL VOLUME 88.9 fl (80-96); PLATELET COUNT 385 10^3/uL (134-434); RBC 3.62 M/mm3 (4.00-5.60); WHITE BLOOD COUNT 10.1 K/mm3 (4.0-10.0)
[2021-05-28] MEDS: Z SL SCH ×2 (09:08→23:00)
[2021-05-28] MEDS: APIXABAN 5 MG TABLET PO SCH ×2 (09:08→23:00)
[2021-05-28] MEDS: POLYETHYLENE GLYCOL (HEALTHYLAX) 3350 17 GM PACKET PO SCH (09:08)
[2021-05-28] MEDS: MULTIVIT-MINERALS ORAL LIQUID PEG SCH (09:08)
[2021-05-28] MEDS: FAMOTIDINE 40 MG/5 ML ORAL SUSPENSION PEG SCH (09:08)
[2021-05-28] MEDS: AMANTADINE HCL 100MG/10 ML UNIT DOSE CUPS PEG SCH ×2 (09:08→23:00)
[2021-05-28] MEDS: AMINO ACIDS/PROTEIN HYDROLYS 30 ML LIQUID.PKT GT SCH (09:09)
[2021-05-28] MEDS: dilTIAZem HCL 50 MG/10 ML - 10 ML VIAL IVPUSH PRN (18:35)
[2021-05-28] MEDS ORDERED: PT OWN MED DRAWER 7, Y5N ONE (23:04)
[2021-05-29] MEDS: LORazepam 1 MG TABLET GT SCH ×4 (00:33→17:48)
[2021-05-29] MEDS: dilTIAZem HCL 30 MG TABLET NR SCH ×4 (00:33→17:48)
[2021-05-29] MEDS: morphine SULFATE 4 MG/ML VIAL IVPUSH PRN ×2 (04:46→21:28)
[2021-05-29 07:16] LABS: HEMATOCRIT 32.9 % (35.4-49); HEMOGLOBIN 11.3 GM/dL (11.7-16.9); MCH 30.1 pg (25.7-33.7); MCHC 34.3 g/dl (32.0-35.9); MEAN CELL VOLUME 87.8 fl (80-96); MEAN PLT VOLUME 7.7 fl (7.5-11.1); PLATELET COUNT 423 10^3/uL (134-434); RBC 3.75 M/mm3 (4.00-5.60); RDW 14.7 % (11.9-15.9)
[2021-05-29 07:43] LABS: BLOOD UREA NITROGEN 10.3 mg/dL (7-18); CALCIUM 8.8 mg/dL (8.5-10.1)
[2021-05-29 07:46] LABS: CREATININE 0.7 mg/dL (0.55-1.3)
[2021-05-29] MEDS ORDERED: morphine SULFATE 4 MG/ML VIAL IVPUSH ONE (08:25)
[2021-05-29] MEDS: AMINO ACIDS/PROTEIN HYDROLYS 30 ML LIQUID.PKT GT SCH (08:46)
[2021-05-29] MEDS: MULTIVIT-MINERALS ORAL LIQUID PEG SCH (09:01)
[2021-05-29] MEDS: AMANTADINE HCL 100MG/10 ML UNIT DOSE CUPS PEG SCH ×2 (09:01→22:30)
[2021-05-29] MEDS: FAMOTIDINE 40 MG/5 ML ORAL SUSPENSION PEG SCH (09:02)
[2021-05-29] MEDS: POLYETHYLENE GLYCOL (HEALTHYLAX) 3350 17 GM PACKET PO SCH (09:03)
[2021-05-29] MEDS: APIXABAN 5 MG TABLET PO SCH ×2 (09:03→21:27)
[2021-05-29] MEDS: Z SL SCH ×2 (09:03→21:27)
[2021-05-29 11:20] LABS: URINE APPEARANCE TURBID; URINE BILIRUBIN NEGATIVE (NEGATIVE); URINE COLOR DK YELLOW; URINE GLUCOSE (UA) NEGATIVE (NEGATIVE); URINE KETONE NEGATIVE (NEGATIVE)
[2021-05-29 11:21] LABS: URINE LEUK ESTERASE 4+ (NEGATIVE); URINE NITRITE POSITIVE (NEGATIVE); URINE PROTEIN 2+ (NEGATIVE)
[2021-05-29 11:48] LABS: URINE RBC MODERATE /uL (0-23.9); URINE WBC MODERATE /uL (0-25.8)
[2021-05-29 11:49] LABS: URINE BACTERIA MANY /uL (0-1359)
[2021-05-29] MEDS ORDERED: SULFAMETHOXAZOLE 80 MG/TRIMETHOPRIM 16 MG/ML VIAL IVPB ONE (14:19)
[2021-05-30] MEDS: LORazepam 1 MG TABLET GT SCH ×4 (00:16→17:34)
[2021-05-30] MEDS: dilTIAZem HCL 30 MG TABLET NR SCH ×4 (00:16→17:34)
[2021-05-30 07:06] LABS: BLOOD UREA NITROGEN 9.1 mg/dL (7-18); CALCIUM 8.6 mg/dL (8.5-10.1)
[2021-05-30 07:07] LABS: ALBUMIN 2.3 g/dl (3.4-5.0); MAGNESIUM 1.6 mg/dL (1.8-2.4)
[2021-05-30 07:09] LABS: CREATININE 0.5 mg/dL (0.55-1.3); PHOSPHOROUS 3.8 mg/dL (2.5-4.9)
[2021-05-30 07:10] LABS: BILIRUBIN,TOTAL 1.3 mg/dL (0.2-1)
[2021-05-30 07:11] LABS: TOT PROT 5.4 g/dl (6.4-8.2)
[2021-05-30] MEDS: AMINO ACIDS/PROTEIN HYDROLYS 30 ML LIQUID.PKT GT SCH (08:06)
[2021-05-30 08:47] LABS: BASO % 0.5 % (0-2.0); EOS % 0.5 % (0-4.5); HEMATOCRIT 35.7 % (35.4-49); HEMOGLOBIN 12.2 GM/dL (11.7-16.9); LYMPH % 11.7 % (8-40); MCH 30.3 pg (25.7-33.7); MCHC 34.2 g/dl (32.0-35.9); MEAN CELL VOLUME 88.6 fl (80-96); MEAN PLT VOLUME 8.7 fl (7.5-11.1); MONO % 8.1 % (3.8-10.2); NEUT % 79.2 % (42.8-82.8); PLATELET COUNT 315 10^3/uL (134-434); RBC 4.03 M/mm3 (4.00-5.60); RDW 15.1 % (11.9-15.9); WHITE BLOOD COUNT 13.1 K/mm3 (4.0-10.0)
[2021-05-30] MEDS: Z SL SCH ×2 (09:22→21:37)
[2021-05-30] MEDS: APIXABAN 5 MG TABLET PO SCH ×2 (09:22→21:38)
[2021-05-30] MEDS: AMANTADINE HCL 100MG/10 ML UNIT DOSE CUPS PEG SCH ×2 (09:22→22:30)
[2021-05-30] MEDS: MULTIVIT-MINERALS ORAL LIQUID PEG SCH (09:22)
[2021-05-30] MEDS: FAMOTIDINE 40 MG/5 ML ORAL SUSPENSION PEG SCH (09:22)
[2021-05-30] MEDS: POLYETHYLENE GLYCOL (HEALTHYLAX) 3350 17 GM PACKET PO SCH (09:23)
[2021-05-30] MEDS ORDERED: MAGNESIUM SULF 50% (8.12 MEQ/2 ML-1 GM VIAL) IVPB ONE (14:30)
[2021-05-30] MEDS: dilTIAZem HCL 50 MG/10 ML - 10 ML VIAL IVPUSH PRN (15:44)
[2021-05-30] MEDS ORDERED: dilTIAZem HCL 50 MG/10 ML - 10 ML VIAL IVPUSH ONE (16:03)
[2021-05-31] MEDS: dilTIAZem HCL 30 MG TABLET NR SCH ×4 (00:22→17:27)
[2021-05-31] MEDS: LORazepam 1 MG TABLET GT SCH ×4 (00:22→17:27)
[2021-05-31] MEDS: ACETAMINOPHEN 1000 MG/100 ML BAG IVPB PRN (01:32)
[2021-05-31 06:49] LABS: EOS % 0.6 % (0-4.5); HEMATOCRIT 33.9 % (35.4-49); HEMOGLOBIN 11.4 GM/dL (11.7-16.9); LYMPH % 14.2 % (8-40); MCH 29.8 pg (25.7-33.7); MCHC 33.6 g/dl (32.0-35.9); MEAN CELL VOLUME 88.7 fl (80-96); MEAN PLT VOLUME 8.7 fl (7.5-11.1); NEUT % 75.2 % (42.8-82.8); PLATELET COUNT 345 10^3/uL (134-434); RBC 3.83 M/mm3 (4.00-5.60); RDW 14.9 % (11.9-15.9); WHITE BLOOD COUNT 14.1 K/mm3 (4.0-10.0)
[2021-05-31 07:04] LABS: ALBUMIN 2.7 g/dl (3.4-5.0); CALCIUM 8.5 mg/dL (8.5-10.1)
[2021-05-31 07:05] LABS: BLOOD UREA NITROGEN 9.6 mg/dL (7-18); MAGNESIUM 2.4 mg/dL (1.8-2.4)
[2021-05-31 07:08] LABS: CREATININE 0.5 mg/dL (0.55-1.3); PHOSPHOROUS 3.3 mg/dL (2.5-4.9)
[2021-05-31 07:09] LABS: BILIRUBIN,TOTAL 0.4 mg/dL (0.2-1); TOT PROT 6.2 g/dl (6.4-8.2)
[2021-05-31 09:18] LABS: PLATELET ESTIMATE ADEQUATE
[2021-05-31] MEDS: AMINO ACIDS/PROTEIN HYDROLYS 30 ML LIQUID.PKT GT SCH (09:32)
[2021-05-31] MEDS: Z SL SCH ×2 (09:32→21:27)
[2021-05-31] MEDS: APIXABAN 5 MG TABLET PO SCH ×2 (09:33→21:28)
[2021-05-31] MEDS: POLYETHYLENE GLYCOL (HEALTHYLAX) 3350 17 GM PACKET PO SCH (09:33)
[2021-05-31] MEDS: FAMOTIDINE 40 MG/5 ML ORAL SUSPENSION PEG SCH (09:34)
[2021-05-31] MEDS: AMANTADINE HCL 100MG/10 ML UNIT DOSE CUPS PEG SCH ×2 (09:52→21:50)
[2021-05-31] MEDS: MULTIVIT-MINERALS ORAL LIQUID PEG SCH (09:52)
[2021-05-31] MEDS ORDERED: PT OWN MED DRAWER 7, Y5N ONE ×4 (09:52→20:40)
[2021-05-31] MEDS ORDERED: SULFAMETHOXAZOLE 80 MG/TRIMETHOPRIM 16 MG/ML VIAL IVPB SCH (10:00)
[2021-05-31] MEDS: SULFAMETHOXAZOLE/TMP 200MG-40MG/5ML PO SCH ×2 (12:34→21:53)
[2021-05-31 13:09] LABS: EPI CELLS 2 /uL (0-25.1); HYALINE CASTS 3 /uL (0-3.1); URINE APPEARANCE CLOUDY; URINE BACTERIA 1128 /uL (0-1359); URINE BILIRUBIN NEGATIVE (NEGATIVE); URINE COLOR YELLOW; URINE GLUCOSE (UA) NEGATIVE (NEGATIVE); URINE KETONE NEGATIVE (NEGATIVE); URINE LEUK ESTERASE 3+ (NEGATIVE); URINE NITRITE NEGATIVE (NEGATIVE); URINE PROTEIN 1+ (NEGATIVE); URINE RBC 168 /uL (0-23.9); URINE UROBILINOGEN 0.2 mg/dL (0.2-1.0); URINE WBC 1961 /uL (0-25.8)
[2021-05-31] MEDS: dilTIAZem HCL 50 MG/10 ML - 10 ML VIAL IVPUSH PRN (18:30)
[2021-06-01] MEDS: LORazepam 1 MG TABLET GT SCH ×4 (00:09→16:54)
[2021-06-01] MEDS: dilTIAZem HCL 30 MG TABLET NR SCH ×4 (00:09→17:47)
[2021-06-01 07:09] LABS: BASO % 0.7 % (0-2.0); EOS % 0.8 % (0-4.5); HEMATOCRIT 32.4 % (35.4-49); HEMOGLOBIN 10.9 GM/dL (11.7-16.9); MCH 29.8 pg (25.7-33.7); MCHC 33.7 g/dl (32.0-35.9); MEAN CELL VOLUME 88.5 fl (80-96); MONO % 8.3 % (3.8-10.2); NEUT % 76.2 % (42.8-82.8); PLATELET COUNT 361 10^3/uL (134-434); RBC 3.66 M/mm3 (4.00-5.60); RDW 15.1 % (11.9-15.9); WHITE BLOOD COUNT 10.7 K/mm3 (4.0-10.0)
[2021-06-01 07:26] LABS: ALBUMIN 2.6 g/dl (3.4-5.0); BLOOD UREA NITROGEN 10.7 mg/dL (7-18)
[2021-06-01 07:28] LABS: MAGNESIUM 1.8 mg/dL (1.8-2.4)
[2021-06-01 07:29] LABS: CREATININE 0.7 mg/dL (0.55-1.3); PHOSPHOROUS 4.2 mg/dL (2.5-4.9)
[2021-06-01 07:30] LABS: BILIRUBIN,TOTAL 0.2 mg/dL (0.2-1)
[2021-06-01 07:31] LABS: TOT PROT 6.2 g/dl (6.4-8.2)
[2021-06-01] MEDS ORDERED: PT OWN MED DRAWER 7, Y5N ONE (08:48)
[2021-06-01] MEDS: AMINO ACIDS/PROTEIN HYDROLYS 30 ML LIQUID.PKT GT SCH (08:55)
[2021-06-01] MEDS: APIXABAN 5 MG TABLET PO SCH ×2 (09:00→21:52)
[2021-06-01] MEDS: SULFAMETHOXAZOLE/TMP 200MG-40MG/5ML PO SCH (09:00)
[2021-06-01] MEDS: AMANTADINE HCL 100MG/10 ML UNIT DOSE CUPS PEG SCH ×2 (09:00→21:53)
[2021-06-01] MEDS: Z SL SCH ×2 (09:00→21:52)
[2021-06-01] MEDS: MULTIVIT-MINERALS ORAL LIQUID PEG SCH (09:00)
[2021-06-01] MEDS: FAMOTIDINE 40 MG/5 ML ORAL SUSPENSION PEG SCH (09:01)
[2021-06-01] MEDS: POLYETHYLENE GLYCOL (HEALTHYLAX) 3350 17 GM PACKET PO SCH (09:01)
[2021-06-01] MEDS ORDERED: morphine SULFATE 4 MG/ML VIAL ONE (10:25)
[2021-06-01] MEDS: morphine SULFATE 4 MG/ML VIAL IVPUSH PRN ×2 (10:40→20:30)
[2021-06-01] MEDS: cloNIDine-TTS 0.3 MG /24 HRS PATCH.TDWK TD SCH (16:05)
[2021-06-01] MEDS ORDERED: DEXTROSE 5%-WATER - 50 ML IVPB ONE (16:51)
[2021-06-01] MEDS ORDERED: cefTRIAXone SODIUM 1 GM VIAL ONE (16:51)
[2021-06-01] MEDS: CEFTRIAXONE 1 GM in DEXTROSE 5%-WATER - 50 ML IVPB SCH (16:54)
[2021-06-02] MEDS: dilTIAZem HCL 30 MG TABLET NR SCH ×4 (00:39→17:11)
[2021-06-02] MEDS: morphine SULFATE 4 MG/ML VIAL IVPUSH PRN ×3 (00:40→21:00)
[2021-06-02] MEDS: LORazepam 1 MG TABLET GT SCH ×4 (06:39→17:11)
[2021-06-02 07:36] LABS: EOS % 1.4 % (0-4.5); HEMATOCRIT 33.3 % (35.4-49); HEMOGLOBIN 11.2 GM/dL (11.7-16.9); LYMPH % 17.4 % (8-40); MCHC 33.6 g/dl (32.0-35.9); MEAN PLT VOLUME 8.4 fl (7.5-11.1); MONO % 9.8 % (3.8-10.2); NEUT % 70.4 % (42.8-82.8); PLATELET COUNT 379 10^3/uL (134-434); RBC 3.74 M/mm3 (4.00-5.60); RDW 15.1 % (11.9-15.9); WHITE BLOOD COUNT 9.5 K/mm3 (4.0-10.0)
[2021-06-02 08:12] LABS: ALBUMIN 2.7 g/dl (3.4-5.0); BLOOD UREA NITROGEN 9.2 mg/dL (7-18); CALCIUM 9.1 mg/dL (8.5-10.1)
[2021-06-02 08:13] LABS: MAGNESIUM 1.8 mg/dL (1.8-2.4)
[2021-06-02 08:15] LABS: CREATININE 0.7 mg/dL (0.55-1.3); PHOSPHOROUS 3.8 mg/dL (2.5-4.9)
[2021-06-02 08:16] LABS: BILIRUBIN,TOTAL 0.4 mg/dL (0.2-1); TOT PROT 6.4 g/dl (6.4-8.2)
[2021-06-02] MEDS ORDERED: DEXTROSE 5%-WATER - 50 ML IVPB ONE (08:50)
[2021-06-02] MEDS ORDERED: cefTRIAXone SODIUM 1 GM VIAL ONE (08:50)
[2021-06-02] MEDS: AMINO ACIDS/PROTEIN HYDROLYS 30 ML LIQUID.PKT GT SCH (08:59)
[2021-06-02] MEDS: MULTIVIT-MINERALS ORAL LIQUID PEG SCH (10:04)
[2021-06-02] MEDS: Z SL SCH ×2 (10:05→21:16)
[2021-06-02] MEDS: AMANTADINE HCL 100MG/10 ML UNIT DOSE CUPS PEG SCH ×2 (10:05→22:00)
[2021-06-02] MEDS: CEFTRIAXONE 1 GM in DEXTROSE 5%-WATER - 50 ML IVPB SCH (10:05)
[2021-06-02] MEDS: APIXABAN 5 MG TABLET PO SCH ×2 (10:06→21:17)
[2021-06-02] MEDS: FAMOTIDINE 40 MG/5 ML ORAL SUSPENSION PEG SCH (10:06)
[2021-06-02] MEDS: POLYETHYLENE GLYCOL (HEALTHYLAX) 3350 17 GM PACKET PO SCH (10:07)
[2021-06-02] MEDS: dilTIAZem HCL 50 MG/10 ML - 10 ML VIAL IVPUSH PRN (17:12)
[2021-06-03] MEDS: dilTIAZem HCL 30 MG TABLET NR SCH ×4 (01:11→18:26)
[2021-06-03] MEDS: LORazepam 1 MG TABLET GT SCH ×4 (06:03→18:26)
[2021-06-03] MEDS: morphine SULFATE 4 MG/ML VIAL IVPUSH PRN ×2 (06:30→21:15)
[2021-06-03 07:20] LABS: BLOOD UREA NITROGEN 9.8 mg/dL (7-18); CALCIUM 8.9 mg/dL (8.5-10.1); MAGNESIUM 1.7 mg/dL (1.8-2.4)
[2021-06-03 07:23] LABS: CREATININE 0.7 mg/dL (0.55-1.3)
[2021-06-03 07:24] LABS: PHOSPHOROUS 3.8 mg/dL (2.5-4.9)
[2021-06-03 07:25] LABS: BILIRUBIN,TOTAL 0.7 mg/dL (0.2-1)
[2021-06-03 08:02] LABS: BASO % 0.8 % (0-2.0); EOS % 1.3 % (0-4.5); HEMATOCRIT 41.9 % (35.4-49); HEMOGLOBIN 13.7 GM/dL (11.7-16.9); LYMPH % 16.7 % (8-40); MCH 29.2 pg (25.7-33.7); MCHC 32.8 g/dl (32.0-35.9); MEAN CELL VOLUME 88.9 fl (80-96); MONO % 9.4 % (3.8-10.2); NEUT % 71.8 % (42.8-82.8); PLATELET COUNT 332 10^3/uL (134-434); RBC 4.71 M/mm3 (4.00-5.60); WHITE BLOOD COUNT 9.1 K/mm3 (4.0-10.0)
[2021-06-03] MEDS ORDERED: DEXTROSE 5%-WATER - 50 ML IVPB ONE (09:31)
[2021-06-03] MEDS ORDERED: cefTRIAXone SODIUM 1 GM VIAL ONE (09:31)
[2021-06-03] MEDS: Z SL SCH ×2 (09:33→21:18)
[2021-06-03] MEDS: CEFTRIAXONE 1 GM in DEXTROSE 5%-WATER - 50 ML IVPB SCH (09:33)
[2021-06-03] MEDS: AMANTADINE HCL 100MG/10 ML UNIT DOSE CUPS PEG SCH ×2 (09:34→21:18)
[2021-06-03] MEDS: AMINO ACIDS/PROTEIN HYDROLYS 30 ML LIQUID.PKT GT SCH (09:34)
[2021-06-03] MEDS: APIXABAN 5 MG TABLET PO SCH ×2 (09:34→21:18)
[2021-06-03] MEDS: MULTIVIT-MINERALS ORAL LIQUID PEG SCH (09:34)
[2021-06-03] MEDS: FAMOTIDINE 40 MG/5 ML ORAL SUSPENSION PEG SCH (09:35)
[2021-06-03] MEDS: POLYETHYLENE GLYCOL (HEALTHYLAX) 3350 17 GM PACKET PO SCH (11:59)
[2021-06-04] MEDS: dilTIAZem HCL 30 MG TABLET NR SCH ×4 (01:16→17:16)
[2021-06-04] MEDS: LORazepam 1 MG TABLET GT SCH ×4 (05:39→17:16)
[2021-06-04] MEDS: morphine SULFATE 4 MG/ML VIAL IVPUSH PRN ×2 (06:19→10:05)
[2021-06-04] MEDS ORDERED: MAGNESIUM SULF 50% (8.12 MEQ/2 ML-1 GM VIAL) IVPB ONE (08:01)
[2021-06-04] MEDS ORDERED: cefTRIAXone SODIUM 1 GM VIAL ONE (08:44)
[2021-06-04] MEDS ORDERED: PT OWN MED DRAWER 7, Y5N ONE (08:44)
[2021-06-04] MEDS ORDERED: DEXTROSE 5%-WATER - 50 ML IVPB ONE (08:44)
[2021-06-04] MEDS: AMINO ACIDS/PROTEIN HYDROLYS 30 ML LIQUID.PKT GT SCH (09:02)
[2021-06-04] MEDS: ACETAMINOPHEN 1000 MG/100 ML BAG IVPB PRN (09:11)
[2021-06-04] MEDS: MULTIVIT-MINERALS ORAL LIQUID PEG SCH (09:13)
[2021-06-04] MEDS: FAMOTIDINE 40 MG/5 ML ORAL SUSPENSION PEG SCH (09:14)
[2021-06-04] MEDS: AMANTADINE HCL 100MG/10 ML UNIT DOSE CUPS PEG SCH ×2 (09:14→21:41)
[2021-06-04] MEDS: Z SL SCH ×2 (09:15→21:40)
[2021-06-04] MEDS: APIXABAN 5 MG TABLET PO SCH ×2 (09:15→21:41)
[2021-06-04] MEDS: CEFTRIAXONE 1 GM in DEXTROSE 5%-WATER - 50 ML IVPB SCH (09:15)
[2021-06-04] MEDS: POLYETHYLENE GLYCOL (HEALTHYLAX) 3350 17 GM PACKET PO SCH (09:15)
[2021-06-04] MEDS: dilTIAZem HCL 50 MG/10 ML - 10 ML VIAL IVPUSH PRN (18:01)
[2021-06-05] MEDS: dilTIAZem HCL 30 MG TABLET NR SCH ×4 (00:08→17:29)
[2021-06-05] MEDS: LORazepam 1 MG TABLET GT SCH ×5 (00:08→22:54)
[2021-06-05 06:41] LABS: BASO % 0.8 % (0-2.0); EOS % 0.8 % (0-4.5); HEMATOCRIT 34.4 % (35.4-49); HEMOGLOBIN 11.6 GM/dL (11.7-16.9); LYMPH % 9.9 % (8-40); MCH 29.6 pg (25.7-33.7); MCHC 33.6 g/dl (32.0-35.9); MEAN CELL VOLUME 87.9 fl (80-96); MEAN PLT VOLUME 8.3 fl (7.5-11.1); MONO % 7.9 % (3.8-10.2); NEUT % 80.6 % (42.8-82.8); PLATELET COUNT 375 10^3/uL (134-434); RBC 3.92 M/mm3 (4.00-5.60); RDW 14.8 % (11.9-15.9); WHITE BLOOD COUNT 12.5 K/mm3 (4.0-10.0)
[2021-06-05 06:50] LABS: CALCIUM 8.8 mg/dL (8.5-10.1)
[2021-06-05 06:51] LABS: ALBUMIN 3.1 g/dl (3.4-5.0); BLOOD UREA NITROGEN 10.9 mg/dL (7-18); MAGNESIUM 2.2 mg/dL (1.8-2.4)
[2021-06-05 06:54] LABS: CREATININE 0.7 mg/dL (0.55-1.3); PHOSPHOROUS 3.4 mg/dL (2.5-4.9)
[2021-06-05 06:55] LABS: BILIRUBIN,TOTAL 0.4 mg/dL (0.2-1); TOT PROT 6.7 g/dl (6.4-8.2)
[2021-06-05] MEDS: AMINO ACIDS/PROTEIN HYDROLYS 30 ML LIQUID.PKT GT SCH (08:50)
[2021-06-05] MEDS ORDERED: cefTRIAXone SODIUM 1 GM VIAL ONE (09:00)
[2021-06-05] MEDS ORDERED: DEXTROSE 5%-WATER - 50 ML IVPB ONE (09:00)
[2021-06-05] MEDS: POLYETHYLENE GLYCOL (HEALTHYLAX) 3350 17 GM PACKET PO SCH (09:17)
[2021-06-05] MEDS: MULTIVIT-MINERALS ORAL LIQUID PEG SCH (09:17)
[2021-06-05] MEDS: APIXABAN 5 MG TABLET PO SCH ×2 (09:17→22:54)
[2021-06-05] MEDS: Z SL SCH ×2 (09:17→22:54)
[2021-06-05] MEDS: AMANTADINE HCL 100MG/10 ML UNIT DOSE CUPS PEG SCH ×2 (09:25→22:54)
[2021-06-05] MEDS: CEFTRIAXONE 1 GM in DEXTROSE 5%-WATER - 50 ML IVPB SCH (10:17)
[2021-06-05] MEDS ORDERED: PT OWN MED DRAWER 7, Y5N ONE ×2 (10:24→21:13)
[2021-06-05] MEDS: FAMOTIDINE 40 MG/5 ML ORAL SUSPENSION PEG SCH (11:54)
[2021-06-06] MEDS: dilTIAZem HCL 30 MG TABLET NR SCH ×5 (01:00→23:05)
[2021-06-06] MEDS: LORazepam 1 MG TABLET GT SCH ×4 (06:24→23:06)
[2021-06-06] MEDS ORDERED: cefTRIAXone SODIUM 1 GM VIAL ONE (08:46)
[2021-06-06] MEDS ORDERED: DEXTROSE 5%-WATER - 50 ML IVPB ONE (08:46)
[2021-06-06] MEDS ORDERED: PT OWN MED DRAWER 7, Y5N ONE ×2 (08:46→21:07)
[2021-06-06] MEDS: AMINO ACIDS/PROTEIN HYDROLYS 30 ML LIQUID.PKT GT SCH (08:51)
[2021-06-06] MEDS: Z SL SCH ×2 (09:13→21:14)
[2021-06-06] MEDS: FAMOTIDINE 40 MG/5 ML ORAL SUSPENSION PEG SCH (09:14)
[2021-06-06] MEDS: APIXABAN 5 MG TABLET PO SCH ×2 (09:14→21:15)
[2021-06-06] MEDS: MULTIVIT-MINERALS ORAL LIQUID PEG SCH (09:14)
[2021-06-06] MEDS: AMANTADINE HCL 100MG/10 ML UNIT DOSE CUPS PEG SCH ×2 (09:15→21:15)
[2021-06-06] MEDS: CEFTRIAXONE 1 GM in DEXTROSE 5%-WATER - 50 ML IVPB SCH (09:15)
[2021-06-06] MEDS: POLYETHYLENE GLYCOL (HEALTHYLAX) 3350 17 GM PACKET PO SCH (09:32)
[2021-06-07] MEDS: dilTIAZem HCL 30 MG TABLET NR SCH ×4 (05:14→23:31)
[2021-06-07] MEDS: LORazepam 1 MG TABLET GT SCH ×4 (05:14→23:31)
[2021-06-07 07:32] LABS: BASO % 0.8 % (0-2.0); EOS % 0.8 % (0-4.5); HEMATOCRIT 33.7 % (35.4-49); HEMOGLOBIN 11.4 GM/dL (11.7-16.9); LYMPH % 10.1 % (8-40); MCH 29.4 pg (25.7-33.7); MCHC 33.8 g/dl (32.0-35.9); MEAN CELL VOLUME 87.1 fl (80-96); MEAN PLT VOLUME 7.6 fl (7.5-11.1); MONO % 8.7 % (3.8-10.2); NEUT % 79.6 % (42.8-82.8); PLATELET COUNT 348 10^3/uL (134-434); RBC 3.86 M/mm3 (4.00-5.60); RDW 14.7 % (11.9-15.9); WHITE BLOOD COUNT 9.7 K/mm3 (4.0-10.0)
[2021-06-07 07:52] LABS: BLOOD UREA NITROGEN 9.4 mg/dL (7-18); MAGNESIUM 2.3 mg/dL (1.8-2.4)
[2021-06-07 07:55] LABS: CREATININE 0.7 mg/dL (0.55-1.3); PHOSPHOROUS 3.6 mg/dL (2.5-4.9)
[2021-06-07 07:57] LABS: BILIRUBIN,TOTAL 0.3 mg/dL (0.2-1); TOT PROT 6.6 g/dl (6.4-8.2)
[2021-06-07] MEDS ORDERED: cefTRIAXone SODIUM 1 GM VIAL ONE (09:27)
[2021-06-07] MEDS ORDERED: DEXTROSE 5%-WATER - 50 ML IVPB ONE (09:27)
[2021-06-07] MEDS ORDERED: PT OWN MED DRAWER 7, Y5N ONE ×3 (09:27→21:23)
[2021-06-07] MEDS: CEFTRIAXONE 1 GM in DEXTROSE 5%-WATER - 50 ML IVPB SCH (10:03)
[2021-06-07] MEDS: FAMOTIDINE 40 MG/5 ML ORAL SUSPENSION PEG SCH (10:03)
[2021-06-07] MEDS: APIXABAN 5 MG TABLET PO SCH ×2 (10:03→21:25)
[2021-06-07] MEDS: MULTIVIT-MINERALS ORAL LIQUID PEG SCH (10:04)
[2021-06-07] MEDS: AMANTADINE HCL 100MG/10 ML UNIT DOSE CUPS PEG SCH ×2 (10:04→21:26)
[2021-06-07] MEDS: POLYETHYLENE GLYCOL (HEALTHYLAX) 3350 17 GM PACKET PO SCH (10:04)
[2021-06-08] MEDS: dilTIAZem HCL 30 MG TABLET NR SCH ×3 (05:52→17:04)
[2021-06-08] MEDS: LORazepam 1 MG TABLET GT SCH ×4 (05:52→23:48)
[2021-06-08] MEDS ORDERED: PT OWN MED DRAWER 7, Y5N ONE (09:03)
[2021-06-08] MEDS: MULTIVIT-MINERALS ORAL LIQUID PEG SCH (09:06)
[2021-06-08] MEDS: APIXABAN 5 MG TABLET PO SCH ×2 (09:07→23:48)
[2021-06-08] MEDS: POLYETHYLENE GLYCOL (HEALTHYLAX) 3350 17 GM PACKET PO SCH (09:07)
[2021-06-08] MEDS: FAMOTIDINE 40 MG/5 ML ORAL SUSPENSION PEG SCH (09:07)
[2021-06-08] MEDS: AMANTADINE HCL 100MG/10 ML UNIT DOSE CUPS PEG SCH (09:07)
[2021-06-08] MEDS ORDERED: morphine SULFATE 4 MG/ML VIAL ONE (10:45)
[2021-06-08] MEDS: cloNIDine-TTS 0.3 MG /24 HRS PATCH.TDWK TD SCH (10:46)
[2021-06-08] MEDS ORDERED: morphine SULFATE 4 MG/ML VIAL IVPUSH ONE (12:00)
[2021-06-08] MEDS: MORPHINE SULFATE/0.9% NACL/PF 100 MG/100 ML BAG IVPB SCH (12:15)
[2021-06-09] MEDS: dilTIAZem HCL 30 MG TABLET NR SCH ×5 (00:49→23:04)
[2021-06-09] MEDS: LORazepam 1 MG TABLET GT SCH ×2 (05:10→11:41)
[2021-06-09] MEDS: FAMOTIDINE 40 MG/5 ML ORAL SUSPENSION PEG SCH (11:40)
[2021-06-09] MEDS: APIXABAN 5 MG TABLET PO SCH ×2 (11:41→22:04)
[2021-06-09] MEDS: POLYETHYLENE GLYCOL (HEALTHYLAX) 3350 17 GM PACKET PO SCH (11:41)
[2021-06-09] MEDS: MORPHINE SULFATE/0.9% NACL/PF 100 MG/100 ML BAG IVPB SCH (15:00)
[2021-06-09] MEDS ORDERED: PT OWN MED DRAWER 7, Y5N ONE (23:03)
[2021-06-10] MEDS: MORPHINE SULFATE/0.9% NACL/PF 100 MG/100 ML BAG IVPB SCH ×2 (01:15→17:26)
[2021-06-10] MEDS: dilTIAZem HCL 30 MG TABLET NR SCH ×3 (05:51→17:27)
[2021-06-10] MEDS: APIXABAN 5 MG TABLET PO SCH ×2 (10:13→21:59)
[2021-06-10] MEDS: POLYETHYLENE GLYCOL (HEALTHYLAX) 3350 17 GM PACKET PO SCH (10:13)
[2021-06-10] MEDS: FAMOTIDINE 40 MG/5 ML ORAL SUSPENSION PEG SCH (10:13)
[2021-06-10] MEDS: SCOPOLAMINE HYDROBROMIDE 1 PATCH PATCH.TD72 TD SCH (14:39)
[2021-06-11] MEDS: dilTIAZem HCL 30 MG TABLET NR SCH ×5 (00:39→23:14)
[2021-06-11] MEDS ORDERED: PT OWN MED DRAWER 7, Y5N ONE ×2 (05:31→21:30)
[2021-06-11] MEDS: POLYETHYLENE GLYCOL (HEALTHYLAX) 3350 17 GM PACKET PO SCH (10:38)
[2021-06-11] MEDS: APIXABAN 5 MG TABLET PO SCH ×2 (10:38→23:13)
[2021-06-11] MEDS: FAMOTIDINE 40 MG/5 ML ORAL SUSPENSION PEG SCH (10:38)
[2021-06-11] MEDS: MORPHINE SULFATE/0.9% NACL/PF 100 MG/100 ML BAG IVPB SCH (18:32)
[2021-06-12] MEDS: dilTIAZem HCL 30 MG TABLET NR SCH ×4 (05:07→23:20)
[2021-06-12] MEDS: POLYETHYLENE GLYCOL (HEALTHYLAX) 3350 17 GM PACKET PO SCH (10:16)
[2021-06-12] MEDS: APIXABAN 5 MG TABLET PO SCH ×2 (10:16→23:21)
[2021-06-12] MEDS: FAMOTIDINE 40 MG/5 ML ORAL SUSPENSION PEG SCH (10:16)
[2021-06-12] MEDS: MORPHINE SULFATE/0.9% NACL/PF 100 MG/100 ML BAG IVPB SCH (13:29)
[2021-06-13] MEDS: dilTIAZem HCL 30 MG TABLET NR SCH ×4 (05:18→23:06)
[2021-06-13] MEDS: POLYETHYLENE GLYCOL (HEALTHYLAX) 3350 17 GM PACKET PO SCH (11:19)
[2021-06-13] MEDS: APIXABAN 5 MG TABLET PO SCH ×2 (11:20→22:54)
[2021-06-13] MEDS: FAMOTIDINE 40 MG/5 ML ORAL SUSPENSION PEG SCH (11:20)
[2021-06-13] MEDS: SCOPOLAMINE HYDROBROMIDE 1 PATCH PATCH.TD72 TD SCH (15:45)
[2021-06-14] MEDS: dilTIAZem HCL 30 MG TABLET NR SCH ×4 (05:53→23:52)
[2021-06-14] MEDS: POLYETHYLENE GLYCOL (HEALTHYLAX) 3350 17 GM PACKET PO SCH (09:56)
[2021-06-14] MEDS: APIXABAN 5 MG TABLET PO SCH ×2 (09:56→23:52)
[2021-06-14] MEDS: FAMOTIDINE 40 MG/5 ML ORAL SUSPENSION PEG SCH (09:57)
[2021-06-14] MEDS: MORPHINE SULFATE/0.9% NACL/PF 100 MG/100 ML BAG IVPB SCH (12:13)
[2021-06-14] MEDS ORDERED: PT OWN MED DRAWER 7, Y5N ONE (23:47)
[2021-06-15] MEDS ORDERED: PT OWN MED DRAWER 7, Y5N ONE ×2 (04:30→05:54)
[2021-06-15] MEDS: dilTIAZem HCL 30 MG TABLET NR SCH ×3 (06:19→17:31)
[2021-06-15] MEDS: POLYETHYLENE GLYCOL (HEALTHYLAX) 3350 17 GM PACKET PO SCH (09:56)
[2021-06-15] MEDS: APIXABAN 5 MG TABLET PO SCH (09:57)
[2021-06-15] MEDS: FAMOTIDINE 40 MG/5 ML ORAL SUSPENSION PEG SCH (09:57)
[2021-06-15] MEDS: MORPHINE SULFATE/0.9% NACL/PF 100 MG/100 ML BAG IVPB SCH (12:53)
[2021-06-15] MEDS: cloNIDine-TTS 0.3 MG /24 HRS PATCH.TDWK TD SCH (13:04)
[2021-06-16] MEDS: dilTIAZem HCL 30 MG TABLET NR SCH ×5 (01:20→23:25)
[2021-06-16] MEDS ORDERED: PT OWN MED DRAWER 7, Y5N ONE (10:25)
[2021-06-16] MEDS: POLYETHYLENE GLYCOL (HEALTHYLAX) 3350 17 GM PACKET PO SCH (10:36)
[2021-06-16] MEDS: FAMOTIDINE 40 MG/5 ML ORAL SUSPENSION PEG SCH (10:36)
[2021-06-16] MEDS: APIXABAN 5 MG TABLET PO SCH ×3 (10:36→23:25)
[2021-06-16] MEDS: MORPHINE SULFATE/0.9% NACL/PF 100 MG/100 ML BAG IVPB SCH ×2 (12:44→16:49)
[2021-06-16] MEDS: SCOPOLAMINE HYDROBROMIDE 1 PATCH PATCH.TD72 TD SCH (13:40)
[2021-06-16] MEDS: fentaNYL 12mcg/hr PATCH.TD72 TD SCH (18:06)
[2021-06-17] MEDS: dilTIAZem HCL 30 MG TABLET NR SCH ×3 (05:31→16:59)
[2021-06-17] MEDS: APIXABAN 5 MG TABLET PO SCH ×2 (10:38→22:24)
[2021-06-17] MEDS: POLYETHYLENE GLYCOL (HEALTHYLAX) 3350 17 GM PACKET PO SCH (10:38)
[2021-06-17] MEDS: FAMOTIDINE 40 MG/5 ML ORAL SUSPENSION PEG SCH (10:38)
[2021-06-17] MEDS: ACETAMINOPHEN 1000 MG/100 ML BAG IVPB PRN (10:39)
[2021-06-17] MEDS: MORPHINE SULFATE/0.9% NACL/PF 100 MG/100 ML BAG IVPB SCH (13:09)
[2021-06-17] MEDS: morphine SULFATE 4 MG/ML VIAL IVPUSH PRN (17:00)
[2021-06-18] MEDS: dilTIAZem HCL 30 MG TABLET NR SCH ×5 (01:11→23:13)
[2021-06-18] MEDS ORDERED: oxyCODONE HCL 5 MG TABLET PEG ONE (02:28)
[2021-06-18] MEDS: ACETAMINOPHEN 1000 MG/100 ML BAG IVPB PRN (08:53)
[2021-06-18] MEDS: morphine SULFATE 4 MG/ML VIAL IVPUSH PRN ×3 (08:53→21:01)
[2021-06-18] MEDS: FAMOTIDINE 40 MG/5 ML ORAL SUSPENSION PEG SCH (08:59)
[2021-06-18] MEDS: APIXABAN 5 MG TABLET PO SCH ×2 (08:59→20:59)
[2021-06-18] MEDS: POLYETHYLENE GLYCOL (HEALTHYLAX) 3350 17 GM PACKET PO SCH (08:59)
[2021-06-19] MEDS: dilTIAZem HCL 30 MG TABLET NR SCH ×4 (05:17→23:00)
[2021-06-19] MEDS: morphine SULFATE 4 MG/ML VIAL IVPUSH PRN (05:18)
[2021-06-19] MEDS ORDERED: PT OWN MED DRAWER 7, Y5N ONE ×2 (11:07→22:32)
[2021-06-19] MEDS: POLYETHYLENE GLYCOL (HEALTHYLAX) 3350 17 GM PACKET PO SCH (11:22)
[2021-06-19] MEDS: APIXABAN 5 MG TABLET PO SCH ×2 (11:22→22:58)
[2021-06-19] MEDS: FAMOTIDINE 40 MG/5 ML ORAL SUSPENSION PEG SCH (11:24)
[2021-06-19 12:06] LABS: BASO % 1.5 % (0-2.0); EOS % 0.9 % (0-4.5); HEMATOCRIT 33.5 % (35.4-49); HEMOGLOBIN 11.5 GM/dL (11.7-16.9); MCH 29.6 pg (25.7-33.7); MCHC 34.5 g/dl (32.0-35.9); MEAN CELL VOLUME 85.7 fl (80-96); MEAN PLT VOLUME 7.7 fl (7.5-11.1); MONO % 5.9 % (3.8-10.2); NEUT % 76.7 % (42.8-82.8); PLATELET COUNT 443 10^3/uL (134-434); WHITE BLOOD COUNT 7.8 K/mm3 (4.0-10.0)
[2021-06-19 12:25] LABS: BLOOD UREA NITROGEN 8.4 mg/dL (7-18); CALCIUM 9.2 mg/dL (8.5-10.1)
[2021-06-19 12:26] LABS: ALBUMIN 3.1 g/dl (3.4-5.0); MAGNESIUM 2.1 mg/dL (1.8-2.4)
[2021-06-19 12:30] LABS: BILIRUBIN,TOTAL 0.4 mg/dL (0.2-1); CREATININE 0.6 mg/dL (0.55-1.3); PHOSPHOROUS 3.7 mg/dL (2.5-4.9); TOT PROT 6.5 g/dl (6.4-8.2)
[2021-06-19] MEDS: SCOPOLAMINE HYDROBROMIDE 1 PATCH PATCH.TD72 TD SCH (14:22)
[2021-06-19] MEDS: fentaNYL 12mcg/hr PATCH.TD72 TD SCH (17:30)
[2021-06-19] MEDS: FENTANYL PATCH WASTE MC PRN (17:32)
[2021-06-20] MEDS: morphine SULFATE 4 MG/ML VIAL IVPUSH PRN (00:32)
[2021-06-20] MEDS: dilTIAZem HCL 30 MG TABLET NR SCH ×4 (05:33→23:13)
[2021-06-20] MEDS ORDERED: PT OWN MED DRAWER 7, Y5N ONE ×3 (10:52→23:11)
[2021-06-20] MEDS: POLYETHYLENE GLYCOL (HEALTHYLAX) 3350 17 GM PACKET PO SCH (11:15)
[2021-06-20] MEDS: FAMOTIDINE 40 MG/5 ML ORAL SUSPENSION PEG SCH (11:15)
[2021-06-20] MEDS: APIXABAN 5 MG TABLET PO SCH ×2 (11:15→21:27)
[2021-06-20] MEDS ORDERED: AMINO ACIDS 4.25%/D5W 1,000 ML IV SCH (12:30)
[2021-06-21] MEDS: morphine SULFATE 4 MG/ML VIAL IVPUSH PRN (04:57)
[2021-06-21] MEDS: dilTIAZem HCL 30 MG TABLET NR SCH ×4 (05:20→23:28)
[2021-06-21] MEDS: APIXABAN 5 MG TABLET PO SCH ×2 (11:10→23:28)
[2021-06-21] MEDS: POLYETHYLENE GLYCOL (HEALTHYLAX) 3350 17 GM PACKET PO SCH (11:10)
[2021-06-21] MEDS: FAMOTIDINE 40 MG/5 ML ORAL SUSPENSION PEG SCH (11:11)
[2021-06-21] MEDS ORDERED: PT OWN MED DRAWER 7, Y5N ONE (11:48)
[2021-06-21] MEDS: MULTIVIT INJECTION ADULT 10 ML in AMINO ACIDS 4.25%/D5W 1,000 ML IV SCH (15:10)
[2021-06-21] MEDS: COLLAGENASE CLOSTRIDIUM HIST. 30 GRAMS TUBE TP SCH (18:17)
[2021-06-21] MEDS ORDERED: FAT EMULSION/OLIVE/SOY (CLINOLIPID) 250 ML EMULSION IV SCH (22:00)
[2021-06-22] MEDS: FAT EMULSION/OLIVE/SOY/PHOSPHO 250 ML IV SCH ×2 (03:17→21:25)
[2021-06-22] MEDS: ACETAMINOPHEN 1000 MG/100 ML BAG IVPB PRN ×2 (05:42→21:42)
[2021-06-22] MEDS: dilTIAZem HCL 30 MG TABLET NR SCH ×3 (05:42→17:37)
[2021-06-22] MEDS: POLYETHYLENE GLYCOL (HEALTHYLAX) 3350 17 GM PACKET PO SCH (09:43)
[2021-06-22] MEDS: FAMOTIDINE 40 MG/5 ML ORAL SUSPENSION PEG SCH (09:43)
[2021-06-22] MEDS: COLLAGENASE CLOSTRIDIUM HIST. 30 GRAMS TUBE TP SCH (09:43)
[2021-06-22] MEDS: APIXABAN 5 MG TABLET PO SCH ×2 (09:43→21:38)
[2021-06-22] MEDS: cloNIDine-TTS 0.3 MG /24 HRS PATCH.TDWK TD SCH (09:44)
[2021-06-22] MEDS: MULTIVIT INJ. ADULT COMBO WITH VIT K 1 COMBO 10 ML VIAL IV SCH (11:20)
[2021-06-22] MEDS: MULTIVIT INJECTION ADULT 10 ML in AMINO ACIDS 4.25%/D5W 1,000 ML IV SCH (11:20)
[2021-06-22] MEDS: AMINO ACIDS 4.25%/D5W 1,000 ML IV SCH (11:26)
[2021-06-22] MEDS: SCOPOLAMINE HYDROBROMIDE 1 PATCH PATCH.TD72 TD SCH (14:25)
[2021-06-22] MEDS: fentaNYL 12mcg/hr PATCH.TD72 TD SCH (16:45)
[2021-06-22] MEDS: FENTANYL PATCH WASTE MC PRN (16:57)
[2021-06-23] MEDS: AMINO ACIDS 4.25%/D5W 1,000 ML IV SCH ×2 (00:54→15:38)
[2021-06-23] MEDS: dilTIAZem HCL 30 MG TABLET NR SCH ×4 (00:54→17:36)
[2021-06-23] MEDS: ACETAMINOPHEN 1000 MG/100 ML BAG IVPB PRN ×3 (04:07→21:42)
[2021-06-23] MEDS ORDERED: SODIUM CHLORIDE IVPB SCH (08:15)
[2021-06-23] MEDS ORDERED: ERYTHROMYCIN IVPB SCH (08:15)
[2021-06-23] MEDS: FAMOTIDINE 40 MG/5 ML ORAL SUSPENSION PEG SCH (10:09)
[2021-06-23] MEDS: POLYETHYLENE GLYCOL (HEALTHYLAX) 3350 17 GM PACKET PO SCH (10:10)
[2021-06-23] MEDS: COLLAGENASE CLOSTRIDIUM HIST. 30 GRAMS TUBE TP SCH (10:10)
[2021-06-23] MEDS: APIXABAN 5 MG TABLET PO SCH ×2 (10:10→21:45)
[2021-06-23] MEDS: MULTIVIT INJ. ADULT COMBO WITH VIT K 1 COMBO 10 ML VIAL IV SCH (15:39)
[2021-06-23] MEDS: VANCOMYCIN/WATER BAGS 1,250 MG/250 ML BAG IVPB SCH (17:35)
[2021-06-23] MEDS: LORazepam 0.5 MG TABLET PO PRN (21:43)
[2021-06-23] MEDS: FAT EMULSION/OLIVE/SOY/PHOSPHO 250 ML IV SCH (22:38)
[2021-06-24] MEDS: dilTIAZem HCL 30 MG TABLET NR SCH ×4 (01:00→17:13)
[2021-06-24] MEDS: AMINO ACIDS 4.25%/D5W 1,000 ML IV SCH ×4 (01:33→22:42)
[2021-06-24] MEDS: ACETAMINOPHEN 1000 MG/100 ML BAG IVPB PRN ×3 (05:53→22:23)
[2021-06-24] MEDS: COLLAGENASE CLOSTRIDIUM HIST. 30 GRAMS TUBE TP SCH ×2 (06:31→10:48)
[2021-06-24] MEDS: VANCOMYCIN/WATER BAGS 1,250 MG/250 ML BAG IVPB SCH ×2 (08:31→12:37)
[2021-06-24] MEDS ORDERED: DEXTROSE 5%-WATER - 50 ML IVPB ONE ×2 (10:26→17:10)
[2021-06-24] MEDS ORDERED: CEFEPIME HCL 1 GM VIAL (RESTRICTED TO ID) ONE ×2 (10:26→17:10)
[2021-06-24] MEDS: CEFEPIME 1 GM in DEXTROSE 5%-WATER - 50 ML IVPB SCH ×3 (10:47→17:12)
[2021-06-24] MEDS: FAMOTIDINE 40 MG/5 ML ORAL SUSPENSION PEG SCH (10:48)
[2021-06-24] MEDS: POLYETHYLENE GLYCOL (HEALTHYLAX) 3350 17 GM PACKET PO SCH (10:48)
[2021-06-24] MEDS: APIXABAN 5 MG TABLET PO SCH ×2 (10:48→22:23)
[2021-06-24] MEDS ORDERED: PT OWN MED DRAWER 7, Y5N ONE ×4 (11:18→17:10)
[2021-06-24] MEDS: MULTIVIT INJ. ADULT COMBO WITH VIT K 1 COMBO 10 ML VIAL IV SCH (15:11)
[2021-06-24] MEDS: FAT EMULSION/OLIVE/SOY/PHOSPHO 250 ML IV SCH (22:42)
[2021-06-25] MEDS: dilTIAZem HCL 30 MG TABLET NR SCH ×4 (02:00→17:17)
[2021-06-25] MEDS: LORazepam 0.5 MG TABLET PO PRN (02:41)
[2021-06-25] MEDS: VANCOMYCIN/WATER BAGS 1,250 MG/250 ML BAG IVPB SCH ×2 (02:55→12:55)
[2021-06-25] MEDS: AMINO ACIDS 4.25%/D5W 1,000 ML IV SCH ×3 (04:23→23:28)
[2021-06-25] MEDS ORDERED: CEFEPIME HCL 1 GM VIAL (RESTRICTED TO ID) ONE ×3 (04:27→18:11)
[2021-06-25] MEDS ORDERED: DEXTROSE 5%-WATER - 50 ML IVPB ONE ×3 (04:27→18:12)
[2021-06-25] MEDS: CEFEPIME 1 GM in DEXTROSE 5%-WATER - 50 ML IVPB SCH ×4 (05:29→18:39)
[2021-06-25 08:48] LABS: BASO % 1.3 % (0-2.0); EOS % 0.2 % (0-4.5); HEMATOCRIT 39.2 % (35.4-49); HEMOGLOBIN 13.2 GM/dL (11.7-16.9); LYMPH % 13.3 % (8-40); MCH 29.5 pg (25.7-33.7); MCHC 33.8 g/dl (32.0-35.9); MEAN CELL VOLUME 87.2 fl (80-96); MEAN PLT VOLUME 8.8 fl (7.5-11.1); MONO % 8.4 % (3.8-10.2); NEUT % 76.8 % (42.8-82.8); PLATELET COUNT 332 10^3/uL (134-434); RBC 4.49 M/mm3 (4.00-5.60); RDW 14.1 % (11.9-15.9)
[2021-06-25 09:10] LABS: ALBUMIN 3.6 g/dl (3.4-5.0); BLOOD UREA NITROGEN 15.3 mg/dL (7-18); CALCIUM 8.8 mg/dL (8.5-10.1); MAGNESIUM 1.8 mg/dL (1.8-2.4)
[2021-06-25 09:13] LABS: CREATININE 0.5 mg/dL (0.55-1.3); PHOSPHOROUS 2.4 mg/dL (2.5-4.9)
[2021-06-25 09:15] LABS: BILIRUBIN,TOTAL 0.5 mg/dL (0.2-1); TOT PROT 7.1 g/dl (6.4-8.2)
[2021-06-25] MEDS ORDERED: PT OWN MED DRAWER 7, Y5N ONE ×5 (10:55→17:16)
[2021-06-25] MEDS: APIXABAN 5 MG TABLET PO SCH ×2 (10:58→22:11)
[2021-06-25] MEDS: POLYETHYLENE GLYCOL (HEALTHYLAX) 3350 17 GM PACKET PO SCH (10:58)
[2021-06-25] MEDS: FAMOTIDINE 40 MG/5 ML ORAL SUSPENSION PEG SCH (10:59)
[2021-06-25] MEDS ORDERED: POTASSIUM PHOSPHATE 30 MM in DEXTROSE 5%-WATER - 500 ML IVPB ONE ×2 (15:16→18:30)
[2021-06-25] MEDS ORDERED: MAGNESIUM SULF 50% (8.12 MEQ/2 ML-1 GM VIAL) IVPB ONE (15:16)
[2021-06-25] MEDS: MULTIVIT INJ. ADULT COMBO WITH VIT K 1 COMBO 10 ML VIAL IV SCH (15:52)
[2021-06-25] MEDS: SCOPOLAMINE HYDROBROMIDE 1 PATCH PATCH.TD72 TD SCH (16:59)
[2021-06-25] MEDS ORDERED: MAGNESIUM 1GM/D5W 100ML - 100 ML IVPB IVPB ONE (17:15)
[2021-06-25] MEDS: COLLAGENASE CLOSTRIDIUM HIST. 30 GRAMS TUBE TP SCH (19:00)
[2021-06-26] MEDS: dilTIAZem HCL 30 MG TABLET NR SCH ×5 (01:00→23:04)
[2021-06-26] MEDS ORDERED: CEFEPIME HCL 1 GM VIAL (RESTRICTED TO ID) ONE ×3 (01:25→16:23)
[2021-06-26] MEDS ORDERED: DEXTROSE 5%-WATER - 50 ML IVPB ONE ×3 (01:25→16:24)
[2021-06-26] MEDS: CEFEPIME 1 GM in DEXTROSE 5%-WATER - 50 ML IVPB SCH ×3 (01:35→17:02)
[2021-06-26] MEDS: LORazepam 0.5 MG TABLET PO PRN (01:35)
[2021-06-26] MEDS: VANCOMYCIN/WATER BAGS 1,250 MG/250 ML BAG IVPB SCH ×2 (02:16→12:54)
[2021-06-26] MEDS: FAT EMULSION/OLIVE/SOY/PHOSPHO 250 ML IV SCH ×2 (03:52→23:05)
[2021-06-26] MEDS: MULTIVIT INJ. ADULT COMBO WITH VIT K 1 COMBO 10 ML VIAL IV SCH ×2 (05:38→10:46)
[2021-06-26] MEDS: AMINO ACIDS 4.25%/D5W 1,000 ML IV SCH ×2 (05:38→10:44)
[2021-06-26] MEDS: COLLAGENASE CLOSTRIDIUM HIST. 30 GRAMS TUBE TP SCH ×2 (06:41→10:42)
[2021-06-26 10:13] LABS: CALCIUM 8.9 mg/dL (8.5-10.1)
[2021-06-26 10:14] LABS: ALBUMIN 3.5 g/dl (3.4-5.0); BLOOD UREA NITROGEN 13.4 mg/dL (7-18)
[2021-06-26 10:17] LABS: CREATININE 0.5 mg/dL (0.55-1.3)
[2021-06-26 10:18] LABS: BILIRUBIN,TOTAL 0.5 mg/dL (0.2-1); PHOSPHOROUS 2.8 mg/dL (2.5-4.9); TOT PROT 7.1 g/dl (6.4-8.2)
[2021-06-26] MEDS: APIXABAN 5 MG TABLET PO SCH (10:40)
[2021-06-26] MEDS: POLYETHYLENE GLYCOL (HEALTHYLAX) 3350 17 GM PACKET PO SCH (10:40)
[2021-06-26] MEDS: FAMOTIDINE 40 MG/5 ML ORAL SUSPENSION PEG SCH (10:41)
[2021-06-26 10:59] LABS: BASO % 1.3 % (0-2.0); EOS % 1.1 % (0-4.5); HEMATOCRIT 39.7 % (35.4-49); HEMOGLOBIN 13.4 GM/dL (11.7-16.9); MCH 29.4 pg (25.7-33.7); MCHC 33.7 g/dl (32.0-35.9); MEAN CELL VOLUME 87.4 fl (80-96); MEAN PLT VOLUME 8.7 fl (7.5-11.1); MONO % 8.2 % (3.8-10.2); NEUT % 77.4 % (42.8-82.8); PLATELET COUNT 315 10^3/uL (134-434); RBC 4.54 M/mm3 (4.00-5.60); RDW 13.8 % (11.9-15.9); WHITE BLOOD COUNT 10.8 K/mm3 (4.0-10.0)
[2021-06-26] MEDS ORDERED: POTASSIUM CHLORIDE ORAL LIQUID 20 MEQ/15 ML PEG ONE (11:03)
[2021-06-26] MEDS ORDERED: AMINO ACIDS 4.25%/D5W 1,000 ML IV SCH (11:30)
[2021-06-26] MEDS ORDERED: PT OWN MED DRAWER 7, Y5N ONE ×2 (12:10→21:22)
[2021-06-26] MEDS: FENTANYL PATCH WASTE MC PRN (17:02)
[2021-06-26] MEDS ORDERED: FENTANYL PATCH WASTE MC PRN (17:11)
[2021-06-26] MEDS: fentaNYL 12mcg/hr PATCH.TD72 TD SCH (17:52)
[2021-06-26] MEDS: LORazepam 0.5 MG TABLET GT PRN (23:04)
[2021-06-26] MEDS: APIXABAN 5 MG TABLET GT SCH (23:05)
[2021-06-27] MEDS ORDERED: PT OWN MED DRAWER 7, Y5N ONE ×2 (00:36→10:08)
[2021-06-27] MEDS: VANCOMYCIN/WATER BAGS 1,250 MG/250 ML BAG IVPB SCH ×2 (00:38→12:34)
[2021-06-27] MEDS ORDERED: DEXTROSE 5%-WATER - 50 ML IVPB ONE ×3 (03:07→16:53)
[2021-06-27] MEDS ORDERED: CEFEPIME HCL 1 GM VIAL (RESTRICTED TO ID) ONE ×3 (03:07→16:52)
[2021-06-27] MEDS: CEFEPIME 1 GM in DEXTROSE 5%-WATER - 50 ML IVPB SCH ×3 (03:16→17:29)
[2021-06-27] MEDS: dilTIAZem HCL 30 MG TABLET NR SCH ×4 (05:18→23:14)
[2021-06-27] MEDS ORDERED: AMINO ACIDS 4.25%/D5W 1,000 ML IV SCH (05:30)
[2021-06-27] MEDS ORDERED: MULTIVIT INJ. ADULT COMBO WITH VIT K 1 COMBO 10 ML VIAL IV SCH (05:30)
[2021-06-27 09:24] LABS: BASO % 0.7 % (0-2.0); EOS % 1.4 % (0-4.5); HEMATOCRIT 34.8 % (35.4-49); HEMOGLOBIN 11.6 GM/dL (11.7-16.9); LYMPH % 11.2 % (8-40); MCH 29.4 pg (25.7-33.7); MCHC 33.4 g/dl (32.0-35.9); MEAN CELL VOLUME 87.9 fl (80-96); MEAN PLT VOLUME 9.2 fl (7.5-11.1); MONO % 7.1 % (3.8-10.2); NEUT % 79.6 % (42.8-82.8); PLATELET COUNT 281 10^3/uL (134-434); RBC 3.95 M/mm3 (4.00-5.60); WHITE BLOOD COUNT 8.3 K/mm3 (4.0-10.0)
[2021-06-27 10:22] LABS: ALBUMIN 3.1 g/dl (3.4-5.0); BLOOD UREA NITROGEN 12.3 mg/dL (7-18); CALCIUM 8.8 mg/dL (8.5-10.1); MAGNESIUM 2.1 mg/dL (1.8-2.4)
[2021-06-27] MEDS: FAMOTIDINE 40 MG/5 ML ORAL SUSPENSION PEG SCH (10:23)
[2021-06-27] MEDS: APIXABAN 5 MG TABLET GT SCH ×2 (10:23→23:14)
[2021-06-27] MEDS: POLYETHYLENE GLYCOL (HEALTHYLAX) 3350 17 GM PACKET GT SCH (10:23)
[2021-06-27] MEDS: COLLAGENASE CLOSTRIDIUM HIST. 30 GRAMS TUBE TP SCH (10:24)
[2021-06-27 10:25] LABS: CREATININE 0.4 mg/dL (0.55-1.3); PHOSPHOROUS 2.9 mg/dL (2.5-4.9)
[2021-06-27 10:27] LABS: BILIRUBIN,TOTAL 0.3 mg/dL (0.2-1); TOT PROT 6.4 g/dl (6.4-8.2)
[2021-06-27] MEDS: ACETAMINOPHEN 1000 MG/100 ML BAG IVPB PRN ×2 (14:21→20:49)
[2021-06-27] MEDS: LORazepam 0.5 MG TABLET GT PRN (20:49)
[2021-06-28] MEDS ORDERED: CEFEPIME HCL 1 GM VIAL (RESTRICTED TO ID) ONE ×2 (01:33→08:45)
[2021-06-28] MEDS ORDERED: DEXTROSE 5%-WATER - 50 ML IVPB ONE ×2 (01:33→08:45)
[2021-06-28] MEDS: CEFEPIME 1 GM in DEXTROSE 5%-WATER - 50 ML IVPB SCH ×2 (01:38→10:32)
[2021-06-28] MEDS ORDERED: PT OWN MED DRAWER 7, Y5N ONE (02:04)
[2021-06-28] MEDS: VANCOMYCIN/WATER BAGS 1,250 MG/250 ML BAG IVPB SCH (02:14)
[2021-06-28] MEDS: ACETAMINOPHEN 1000 MG/100 ML BAG IVPB PRN (03:32)
[2021-06-28] MEDS: dilTIAZem HCL 30 MG TABLET NR SCH ×4 (05:09→23:45)
[2021-06-28] MEDS ORDERED: morphine SULFATE 4 MG/ML VIAL IVPUSH ONE ×2 (06:49→11:30)
[2021-06-28] MEDS: LORazepam 0.5 MG TABLET GT PRN (10:31)
[2021-06-28] MEDS: POLYETHYLENE GLYCOL (HEALTHYLAX) 3350 17 GM PACKET GT SCH (10:31)
[2021-06-28] MEDS: FAMOTIDINE 40 MG/5 ML ORAL SUSPENSION PEG SCH (10:33)
[2021-06-28] MEDS: COLLAGENASE CLOSTRIDIUM HIST. 30 GRAMS TUBE TP SCH (10:34)
[2021-06-28] MEDS: APIXABAN 5 MG TABLET GT SCH ×2 (10:36→23:45)
[2021-06-28 12:16] LABS: BASO % 0.4 % (0-2.0); EOS % 0.7 % (0-4.5); HEMATOCRIT 38.4 % (35.4-49); HEMOGLOBIN 12.7 GM/dL (11.7-16.9); LYMPH % 9.2 % (8-40); MCH 29.1 pg (25.7-33.7); MCHC 33.2 g/dl (32.0-35.9); MEAN CELL VOLUME 87.8 fl (80-96); MEAN PLT VOLUME 9.5 fl (7.5-11.1); MONO % 5.3 % (3.8-10.2); NEUT % 84.4 % (42.8-82.8); PLATELET COUNT 298 10^3/uL (134-434); RBC 4.37 M/mm3 (4.00-5.60); RDW 13.7 % (11.9-15.9); WHITE BLOOD COUNT 9.9 K/mm3 (4.0-10.0)
[2021-06-28 12:43] LABS: ALBUMIN 3.4 g/dl (3.4-5.0); BLOOD UREA NITROGEN 10.7 mg/dL (7-18); MAGNESIUM 2.1 mg/dL (1.8-2.4)
[2021-06-28 12:46] LABS: CREATININE 0.5 mg/dL (0.55-1.3)
[2021-06-28 12:47] LABS: PHOSPHOROUS 2.9 mg/dL (2.5-4.9)
[2021-06-28 12:48] LABS: BILIRUBIN,TOTAL 0.7 mg/dL (0.2-1)
[2021-06-28 12:49] LABS: TOT PROT 6.8 g/dl (6.4-8.2)
[2021-06-28] MEDS: SCOPOLAMINE HYDROBROMIDE 1 PATCH PATCH.TD72 TD SCH (16:20)
[2021-06-29] MEDS: ACETAMINOPHEN 1000 MG/100 ML BAG IVPB PRN ×3 (00:33→20:28)
[2021-06-29] MEDS: LORazepam 0.5 MG TABLET GT PRN ×2 (01:12→09:26)
[2021-06-29] MEDS ORDERED: morphine SULFATE 4 MG/ML VIAL IVPUSH ONE ×2 (02:24→10:33)
[2021-06-29] MEDS ORDERED: morphine SULFATE 4 MG/ML VIAL ONE (03:00)
[2021-06-29] MEDS: dilTIAZem HCL 30 MG TABLET NR SCH ×3 (06:31→17:08)
[2021-06-29 08:41] LABS: BASO % 0.9 % (0-2.0); EOS % 1.8 % (0-4.5); HEMOGLOBIN 12.2 GM/dL (11.7-16.9); LYMPH % 13.8 % (8-40); MCH 28.9 pg (25.7-33.7); MCHC 32.9 g/dl (32.0-35.9); MEAN PLT VOLUME 9.5 fl (7.5-11.1); MONO % 6.8 % (3.8-10.2); NEUT % 76.7 % (42.8-82.8); PLATELET COUNT 277 10^3/uL (134-434); RDW 14.2 % (11.9-15.9); WHITE BLOOD COUNT 7.9 K/mm3 (4.0-10.0)
[2021-06-29 09:00] LABS: ALBUMIN 3.3 g/dl (3.4-5.0); BLOOD UREA NITROGEN 11.4 mg/dL (7-18)
[2021-06-29 09:01] LABS: CALCIUM 8.9 mg/dL (8.5-10.1); MAGNESIUM 2.1 mg/dL (1.8-2.4)
[2021-06-29 09:03] LABS: CREATININE 0.5 mg/dL (0.55-1.3); PHOSPHOROUS 3.2 mg/dL (2.5-4.9)
[2021-06-29 09:04] LABS: BILIRUBIN,TOTAL 0.5 mg/dL (0.2-1); TOT PROT 6.8 g/dl (6.4-8.2)
[2021-06-29] MEDS: FAMOTIDINE 40 MG/5 ML ORAL SUSPENSION PEG SCH (09:25)
[2021-06-29] MEDS: COLLAGENASE CLOSTRIDIUM HIST. 30 GRAMS TUBE TP SCH (09:26)
[2021-06-29] MEDS: APIXABAN 5 MG TABLET GT SCH ×2 (09:26→21:24)
[2021-06-29] MEDS: POLYETHYLENE GLYCOL (HEALTHYLAX) 3350 17 GM PACKET GT SCH (09:26)
[2021-06-29] MEDS: cloNIDine-TTS 0.3 MG /24 HRS PATCH.TDWK TD SCH (09:28)
[2021-06-29] MEDS ORDERED: oxyCODONE HCL 5 MG TABLET PO ONE (11:29)
[2021-06-29] MEDS: DOCUSATE NA 100 MG/10 ML UNIT-DOSE CUPS PEG SCH (14:18)
[2021-06-29] MEDS: fentaNYL 12mcg/hr PATCH.TD72 TD SCH (17:08)
[2021-06-29] MEDS: oxyCODONE HCL 5 MG TABLET PO PRN (21:24)
[2021-06-30] MEDS ORDERED: PT OWN MED DRAWER 7, Y5N ONE ×5 (01:02→17:51)
[2021-06-30] MEDS: dilTIAZem HCL 30 MG TABLET NR SCH ×4 (01:05→18:11)
[2021-06-30] MEDS: ACETAMINOPHEN 1000 MG/100 ML BAG IVPB PRN (03:10)
[2021-06-30] MEDS: oxyCODONE HCL 5 MG TABLET PO PRN ×3 (03:44→18:11)
[2021-06-30 08:38] LABS: BASO % 0.9 % (0-2.0); EOS % 2.2 % (0-4.5); HEMATOCRIT 35.6 % (35.4-49); LYMPH % 13.8 % (8-40); MCH 29.7 pg (25.7-33.7); MCHC 33.8 g/dl (32.0-35.9); MEAN CELL VOLUME 87.8 fl (80-96); MEAN PLT VOLUME 9.2 fl (7.5-11.1); MONO % 6.6 % (3.8-10.2); NEUT % 76.5 % (42.8-82.8); PLATELET COUNT 277 10^3/uL (134-434); RBC 4.05 M/mm3 (4.00-5.60); RDW 13.8 % (11.9-15.9); WHITE BLOOD COUNT 8.5 K/mm3 (4.0-10.0)
[2021-06-30 08:57] LABS: ALBUMIN 3.5 g/dl (3.4-5.0); BLOOD UREA NITROGEN 11.1 mg/dL (7-18); CALCIUM 8.8 mg/dL (8.5-10.1); MAGNESIUM 1.9 mg/dL (1.8-2.4)
[2021-06-30 09:00] LABS: CREATININE 0.5 mg/dL (0.55-1.3)
[2021-06-30 09:01] LABS: PHOSPHOROUS 3.5 mg/dL (2.5-4.9)
[2021-06-30 09:02] LABS: BILIRUBIN,TOTAL 0.4 mg/dL (0.2-1); TOT PROT 6.8 g/dl (6.4-8.2)
[2021-06-30] MEDS: POLYETHYLENE GLYCOL (HEALTHYLAX) 3350 17 GM PACKET GT SCH (10:10)
[2021-06-30] MEDS: APIXABAN 5 MG TABLET GT SCH ×2 (10:10→22:16)
[2021-06-30] MEDS: FAMOTIDINE 40 MG/5 ML ORAL SUSPENSION PEG SCH (10:11)
[2021-06-30] MEDS: DOCUSATE NA 100 MG/10 ML UNIT-DOSE CUPS PEG SCH ×2 (10:11→14:22)
[2021-06-30] MEDS: fentaNYL 25mcg/hr PATCH.TD72 TD SCH (14:27)
[2021-06-30] MEDS: FENTANYL PATCH WASTE MC PRN (14:44)
[2021-06-30] MEDS: COLLAGENASE CLOSTRIDIUM HIST. 30 GRAMS TUBE TP SCH (15:36)
[2021-06-30] MEDS: LORazepam 0.5 MG TABLET GT PRN (22:19)
[2021-07-01] MEDS: oxyCODONE HCL 5 MG TABLET PO PRN ×3 (00:16→23:37)
[2021-07-01] MEDS: dilTIAZem HCL 30 MG TABLET NR SCH ×5 (00:17→23:37)
[2021-07-01 08:44] LABS: BASO % 0.6 % (0-2.0); EOS % 2.2 % (0-4.5); HEMATOCRIT 36.4 % (35.4-49); HEMOGLOBIN 12.2 GM/dL (11.7-16.9); LYMPH % 14.7 % (8-40); MCH 29.2 pg (25.7-33.7); MCHC 33.4 g/dl (32.0-35.9); MEAN CELL VOLUME 87.3 fl (80-96); MEAN PLT VOLUME 9.2 fl (7.5-11.1); MONO % 7.5 % (3.8-10.2); PLATELET COUNT 314 10^3/uL (134-434); RBC 4.17 M/mm3 (4.00-5.60); RDW 13.8 % (11.9-15.9); WHITE BLOOD COUNT 8.6 K/mm3 (4.0-10.0)
[2021-07-01 09:03] LABS: ALBUMIN 3.5 g/dl (3.4-5.0)
[2021-07-01 09:04] LABS: BLOOD UREA NITROGEN 10.9 mg/dL (7-18); MAGNESIUM 2.1 mg/dL (1.8-2.4)
[2021-07-01 09:07] LABS: CREATININE 0.5 mg/dL (0.55-1.3); PHOSPHOROUS 3.4 mg/dL (2.5-4.9)
[2021-07-01 09:08] LABS: BILIRUBIN,TOTAL 0.4 mg/dL (0.2-1); TOT PROT 6.7 g/dl (6.4-8.2)
[2021-07-01] MEDS ORDERED: PT OWN MED DRAWER 7, Y5N ONE (11:34)
[2021-07-01] MEDS: POLYETHYLENE GLYCOL (HEALTHYLAX) 3350 17 GM PACKET GT SCH (11:40)
[2021-07-01] MEDS: APIXABAN 5 MG TABLET GT SCH ×2 (11:40→23:00)
[2021-07-01] MEDS: FAMOTIDINE 40 MG/5 ML ORAL SUSPENSION PEG SCH (11:41)
[2021-07-01] MEDS: DOCUSATE NA 100 MG/10 ML UNIT-DOSE CUPS PEG SCH (11:41)
[2021-07-01] MEDS: SCOPOLAMINE HYDROBROMIDE 1 PATCH PATCH.TD72 TD SCH (16:41)
[2021-07-01] MEDS: COLLAGENASE CLOSTRIDIUM HIST. 30 GRAMS TUBE TP SCH (16:41)
[2021-07-02] MEDS: dilTIAZem HCL 30 MG TABLET NR SCH ×3 (05:35→17:58)
[2021-07-02] MEDS: COLLAGENASE CLOSTRIDIUM HIST. 30 GRAMS TUBE TP SCH ×2 (05:35→09:44)
[2021-07-02 08:37] LABS: BASO % 0.7 % (0-2.0); EOS % 1.7 % (0-4.5); HEMATOCRIT 36.1 % (35.4-49); HEMOGLOBIN 11.9 GM/dL (11.7-16.9); LYMPH % 11.1 % (8-40); MCHC 32.9 g/dl (32.0-35.9); MEAN CELL VOLUME 88.2 fl (80-96); MEAN PLT VOLUME 9.2 fl (7.5-11.1); MONO % 7.7 % (3.8-10.2); NEUT % 78.8 % (42.8-82.8); PLATELET COUNT 317 10^3/uL (134-434); RBC 4.09 M/mm3 (4.00-5.60); RDW 14.1 % (11.9-15.9); WHITE BLOOD COUNT 9.2 K/mm3 (4.0-10.0)
[2021-07-02 09:18] LABS: ALBUMIN 3.2 g/dl (3.4-5.0); BLOOD UREA NITROGEN 12.5 mg/dL (7-18); CALCIUM 9.1 mg/dL (8.5-10.1); MAGNESIUM 2.1 mg/dL (1.8-2.4)
[2021-07-02 09:21] LABS: CREATININE 0.5 mg/dL (0.55-1.3); PHOSPHOROUS 3.4 mg/dL (2.5-4.9)
[2021-07-02 09:22] LABS: BILIRUBIN,TOTAL 0.3 mg/dL (0.2-1); TOT PROT 6.5 g/dl (6.4-8.2)
[2021-07-02] MEDS: FAMOTIDINE 40 MG/5 ML ORAL SUSPENSION PEG SCH (09:27)
[2021-07-02] MEDS: oxyCODONE HCL 5 MG TABLET PO PRN (09:27)
[2021-07-02] MEDS: POLYETHYLENE GLYCOL (HEALTHYLAX) 3350 17 GM PACKET GT SCH (09:27)
[2021-07-02] MEDS: DOCUSATE NA 100 MG/10 ML UNIT-DOSE CUPS PEG SCH (09:27)
[2021-07-02] MEDS: APIXABAN 5 MG TABLET GT SCH ×2 (09:29→22:15)
[2021-07-02] MEDS: ACETAMINOPHEN 1000 MG/100 ML BAG IVPB PRN (17:57)
[2021-07-03] MEDS: dilTIAZem HCL 30 MG TABLET NR SCH ×4 (00:45→17:42)
[2021-07-03] MEDS: ACETAMINOPHEN 1000 MG/100 ML BAG IVPB PRN (09:47)
[2021-07-03] MEDS: DOCUSATE NA 100 MG/10 ML UNIT-DOSE CUPS PEG SCH (09:47)
[2021-07-03] MEDS: FAMOTIDINE 40 MG/5 ML ORAL SUSPENSION PEG SCH (09:48)
[2021-07-03] MEDS: POLYETHYLENE GLYCOL (HEALTHYLAX) 3350 17 GM PACKET GT SCH (09:48)
[2021-07-03] MEDS: APIXABAN 5 MG TABLET GT SCH ×2 (09:48→21:56)
[2021-07-03] MEDS: COLLAGENASE CLOSTRIDIUM HIST. 30 GRAMS TUBE TP SCH (10:18)
[2021-07-03] MEDS: fentaNYL 25mcg/hr PATCH.TD72 TD SCH (10:19)
[2021-07-03 11:55] LABS: BASO % 0.5 % (0-2.0); HEMATOCRIT 37.9 % (35.4-49); HEMOGLOBIN 12.4 GM/dL (11.7-16.9); LYMPH % 14.4 % (8-40); MCH 28.7 pg (25.7-33.7); MCHC 32.7 g/dl (32.0-35.9); MEAN CELL VOLUME 87.7 fl (80-96); MEAN PLT VOLUME 9.3 fl (7.5-11.1); MONO % 7.3 % (3.8-10.2); NEUT % 76.8 % (42.8-82.8); PLATELET COUNT 342 10^3/uL (134-434); RBC 4.32 M/mm3 (4.00-5.60); RDW 14.2 % (11.9-15.9); WHITE BLOOD COUNT 8.5 K/mm3 (4.0-10.0)
[2021-07-03 12:18] LABS: ALBUMIN 3.5 g/dl (3.4-5.0); CALCIUM 9.3 mg/dL (8.5-10.1); MAGNESIUM 2.1 mg/dL (1.8-2.4)
[2021-07-03 12:22] LABS: CREATININE 0.5 mg/dL (0.55-1.3); PHOSPHOROUS 3.5 mg/dL (2.5-4.9)
[2021-07-03 12:23] LABS: BILIRUBIN,TOTAL 0.6 mg/dL (0.2-1); TOT PROT 7.1 g/dl (6.4-8.2)
[2021-07-03] MEDS: oxyCODONE HCL 5 MG TABLET PO PRN (14:00)
[2021-07-03] MEDS: FENTANYL PATCH WASTE MC PRN (15:10)
[2021-07-04] MEDS: dilTIAZem HCL 30 MG TABLET NR SCH ×3 (00:46→12:59)
[2021-07-04 07:34] LABS: BASO % 0.9 % (0-2.0); EOS % 2.4 % (0-4.5); HEMATOCRIT 35.6 % (35.4-49); HEMOGLOBIN 12.2 GM/dL (11.7-16.9); LYMPH % 21.5 % (8-40); MCH 29.6 pg (25.7-33.7); MCHC 34.1 g/dl (32.0-35.9); MEAN CELL VOLUME 86.8 fl (80-96); MEAN PLT VOLUME 8.9 fl (7.5-11.1); MONO % 10.6 % (3.8-10.2); NEUT % 64.6 % (42.8-82.8); PLATELET COUNT 331 10^3/uL (134-434); RDW 14.1 % (11.9-15.9); WHITE BLOOD COUNT 7.3 K/mm3 (4.0-10.0)
[2021-07-04] MEDS ORDERED: PT OWN MED DRAWER 7, Y5N ONE (12:34)
[2021-07-04] MEDS: APIXABAN 5 MG TABLET GT SCH ×2 (12:57→21:51)
[2021-07-04] MEDS: oxyCODONE HCL 5 MG TABLET PO PRN ×2 (12:57→23:48)
[2021-07-04] MEDS: COLLAGENASE CLOSTRIDIUM HIST. 30 GRAMS TUBE TP SCH (12:59)
[2021-07-04] MEDS: POLYETHYLENE GLYCOL (HEALTHYLAX) 3350 17 GM PACKET GT SCH (12:59)
[2021-07-04] MEDS: DOCUSATE NA 100 MG/10 ML UNIT-DOSE CUPS PEG SCH (13:00)
[2021-07-04] MEDS: FAMOTIDINE 40 MG/5 ML ORAL SUSPENSION PEG SCH (13:08)
[2021-07-04 14:28] LABS: CALCIUM 9.5 mg/dL (8.5-10.1); CREATININE 0.5 mg/dL (0.55-1.3)
[2021-07-04] MEDS ORDERED: dilTIAZem HCL 30 MG TABLET NR SCH (18:00)
[2021-07-04] MEDS: SCOPOLAMINE HYDROBROMIDE 1 PATCH PATCH.TD72 TD SCH (18:29)
[2021-07-04] MEDS: dilTIAZem HCL 60 MG TABLET NR SCH ×2 (18:30→23:11)
[2021-07-04] MEDS: ASCORBIC ACID 250 MG TABLET (FP) GT SCH (21:52)
[2021-07-04] MEDS: ACETAMINOPHEN 1000 MG/100 ML BAG IVPB PRN (23:46)
[2021-07-05] MEDS: dilTIAZem HCL 60 MG TABLET NR SCH ×4 (05:55→23:16)
[2021-07-05 07:20] LABS: BASO % 0.8 % (0-2.0); EOS % 2.4 % (0-4.5); HEMATOCRIT 36.6 % (35.4-49); HEMOGLOBIN 12.4 GM/dL (11.7-16.9); LYMPH % 19.2 % (8-40); MCH 29.7 pg (25.7-33.7); MCHC 33.8 g/dl (32.0-35.9); MEAN CELL VOLUME 87.7 fl (80-96); MEAN PLT VOLUME 8.8 fl (7.5-11.1); NEUT % 67.6 % (42.8-82.8); PLATELET COUNT 346 10^3/uL (134-434); RBC 4.17 M/mm3 (4.00-5.60); WHITE BLOOD COUNT 7.6 K/mm3 (4.0-10.0)
[2021-07-05 09:05] LABS: BLOOD UREA NITROGEN 14.5 mg/dL (7-18); CALCIUM 9.3 mg/dL (8.5-10.1); CREATININE 0.6 mg/dL (0.55-1.3)
[2021-07-05] MEDS ORDERED: PT OWN MED DRAWER 7, Y5N ONE (12:13)
[2021-07-05] MEDS: ZINC SULFATE 220 MG CAPSULE (FP) GT SCH (12:44)
[2021-07-05] MEDS: APIXABAN 5 MG TABLET GT SCH ×2 (12:44→21:04)
[2021-07-05] MEDS: DOCUSATE NA 100 MG/10 ML UNIT-DOSE CUPS PEG SCH (12:45)
[2021-07-05] MEDS: POLYETHYLENE GLYCOL (HEALTHYLAX) 3350 17 GM PACKET GT SCH (12:45)
[2021-07-05] MEDS: FAMOTIDINE 40 MG/5 ML ORAL SUSPENSION PEG SCH (12:46)
[2021-07-05] MEDS: COLLAGENASE CLOSTRIDIUM HIST. 30 GRAMS TUBE TP SCH (12:46)
[2021-07-05] MEDS: ASCORBIC ACID 250 MG TABLET (FP) GT SCH ×2 (12:47→21:03)
[2021-07-05] MEDS: AMINO ACIDS/PROTEIN HYDROLYS 30 ML LIQUID.PKT GT SCH (12:53)
[2021-07-05] MEDS: oxyCODONE HCL 5 MG TABLET PO PRN ×2 (14:51→23:15)
[2021-07-05] MEDS: ACETAMINOPHEN 1000 MG/100 ML BAG IVPB PRN (23:15)
[2021-07-06] MEDS: dilTIAZem HCL 60 MG TABLET NR SCH ×4 (05:50→23:37)
[2021-07-06] MEDS: oxyCODONE HCL 5 MG TABLET PO PRN ×2 (09:59→16:16)
[2021-07-06] MEDS: POLYETHYLENE GLYCOL (HEALTHYLAX) 3350 17 GM PACKET GT SCH (09:59)
[2021-07-06] MEDS: AMINO ACIDS/PROTEIN HYDROLYS 30 ML LIQUID.PKT GT SCH (09:59)
[2021-07-06] MEDS: DOCUSATE NA 100 MG/10 ML UNIT-DOSE CUPS PEG SCH (09:59)
[2021-07-06] MEDS: APIXABAN 5 MG TABLET GT SCH ×2 (09:59→21:26)
[2021-07-06] MEDS: ZINC SULFATE 220 MG CAPSULE (FP) GT SCH (09:59)
[2021-07-06] MEDS: ACETAMINOPHEN 1000 MG/100 ML BAG IVPB PRN ×2 (10:00→16:16)
[2021-07-06] MEDS: FAMOTIDINE 40 MG/5 ML ORAL SUSPENSION PEG SCH (10:01)
[2021-07-06] MEDS: COLLAGENASE CLOSTRIDIUM HIST. 30 GRAMS TUBE TP SCH (10:01)
[2021-07-06] MEDS: ASCORBIC ACID 250 MG TABLET (FP) GT SCH ×2 (10:01→21:26)
[2021-07-06] MEDS: cloNIDine-TTS 0.3 MG /24 HRS PATCH.TDWK TD SCH (10:02)
[2021-07-06] MEDS: fentaNYL 25mcg/hr PATCH.TD72 TD SCH (12:29)
[2021-07-06] MEDS: FENTANYL PATCH WASTE MC PRN (12:34)
[2021-07-06 13:29] LABS: BLOOD UREA NITROGEN 13.5 mg/dL (7-18); CALCIUM 9.4 mg/dL (8.5-10.1); CREATININE 0.6 mg/dL (0.55-1.3)
[2021-07-06] MEDS: LORazepam 0.5 MG TABLET GT PRN (16:16)
[2021-07-06] MEDS ORDERED: PT OWN MED DRAWER 7, Y5N ONE (20:37)
[2021-07-07] MEDS: dilTIAZem HCL 60 MG TABLET NR SCH ×3 (06:10→17:15)
[2021-07-07] MEDS: oxyCODONE HCL 5 MG TABLET PO PRN ×2 (06:13→11:14)
[2021-07-07] MEDS: ACETAMINOPHEN 1000 MG/100 ML BAG IVPB PRN (06:14)
[2021-07-07] MEDS ORDERED: PT OWN MED DRAWER 7, Y5N ONE ×2 (09:11→22:25)
[2021-07-07] MEDS: APIXABAN 5 MG TABLET GT SCH ×2 (10:43→22:26)
[2021-07-07] MEDS: ZINC SULFATE 220 MG CAPSULE (FP) GT SCH (10:43)
[2021-07-07] MEDS: POLYETHYLENE GLYCOL (HEALTHYLAX) 3350 17 GM PACKET GT SCH (10:43)
[2021-07-07] MEDS: AMINO ACIDS/PROTEIN HYDROLYS 30 ML LIQUID.PKT GT SCH (10:43)
[2021-07-07] MEDS: ASCORBIC ACID 250 MG TABLET (FP) GT SCH ×2 (10:44→22:26)
[2021-07-07] MEDS: FAMOTIDINE 40 MG/5 ML ORAL SUSPENSION PEG SCH (10:45)
[2021-07-07] MEDS: DOCUSATE NA 100 MG/10 ML UNIT-DOSE CUPS PEG SCH (10:45)
[2021-07-07] MEDS: LORazepam 0.5 MG TABLET GT PRN (11:14)
[2021-07-07] MEDS: COLLAGENASE CLOSTRIDIUM HIST. 30 GRAMS TUBE TP SCH (14:18)
[2021-07-07] MEDS: SCOPOLAMINE HYDROBROMIDE 1 PATCH PATCH.TD72 TD SCH (15:19)
[2021-07-08] MEDS: dilTIAZem HCL 60 MG TABLET NR SCH ×5 (00:48→23:08)
[2021-07-08 09:00] LABS: BLOOD UREA NITROGEN 15.8 mg/dL (7-18); CALCIUM 9.3 mg/dL (8.5-10.1)
[2021-07-08 09:03] LABS: CREATININE 0.6 mg/dL (0.55-1.3)
[2021-07-08] MEDS ORDERED: PT OWN MED DRAWER 7, Y5N ONE (09:06)
[2021-07-08] MEDS: oxyCODONE HCL 5 MG TABLET PO PRN (10:36)
[2021-07-08] MEDS: APIXABAN 5 MG TABLET GT SCH ×2 (10:39→22:07)
[2021-07-08] MEDS: FAMOTIDINE 40 MG/5 ML ORAL SUSPENSION PEG SCH (10:39)
[2021-07-08] MEDS: ASCORBIC ACID 250 MG TABLET (FP) GT SCH ×2 (10:39→22:07)
[2021-07-08] MEDS: ZINC SULFATE 220 MG CAPSULE (FP) GT SCH (10:39)
[2021-07-08] MEDS: AMINO ACIDS/PROTEIN HYDROLYS 30 ML LIQUID.PKT GT SCH (10:39)
[2021-07-08] MEDS: COLLAGENASE CLOSTRIDIUM HIST. 30 GRAMS TUBE TP SCH (10:41)
[2021-07-08] MEDS: BACITRACIN/POLYMYXIN B SULFATE 15 GM TUBE TP SCH (16:07)
[2021-07-08] MEDS: LORazepam 0.5 MG TABLET GT PRN (22:07)
[2021-07-09] MEDS: dilTIAZem HCL 60 MG TABLET NR SCH ×4 (05:21→23:36)
[2021-07-09] MEDS: oxyCODONE HCL 5 MG TABLET GT PRN ×3 (05:21→21:29)
[2021-07-09] MEDS ORDERED: PT OWN MED DRAWER 7, Y5N ONE ×2 (08:14→16:29)
[2021-07-09 08:41] LABS: CALCIUM 9.3 mg/dL (8.5-10.1)
[2021-07-09 08:42] LABS: BLOOD UREA NITROGEN 13.3 mg/dL (7-18)
[2021-07-09 08:45] LABS: CREATININE 0.6 mg/dL (0.55-1.3)
[2021-07-09] MEDS: FAMOTIDINE 40 MG/5 ML ORAL SUSPENSION PEG SCH (10:08)
[2021-07-09] MEDS: ASCORBIC ACID 250 MG TABLET (FP) GT SCH ×2 (10:08→21:29)
[2021-07-09] MEDS: AMINO ACIDS/PROTEIN HYDROLYS 30 ML LIQUID.PKT GT SCH (10:08)
[2021-07-09] MEDS: APIXABAN 5 MG TABLET GT SCH ×2 (10:09→21:29)
[2021-07-09] MEDS: BACITRACIN/POLYMYXIN B SULFATE 15 GM TUBE TP SCH (10:09)
[2021-07-09] MEDS: ZINC SULFATE 220 MG CAPSULE (FP) GT SCH (10:09)
[2021-07-09] MEDS: COLLAGENASE CLOSTRIDIUM HIST. 30 GRAMS TUBE TP SCH (10:09)
[2021-07-09] MEDS: LORazepam 0.5 MG TABLET GT PRN (21:29)
[2021-07-10] MEDS: dilTIAZem HCL 60 MG TABLET NR SCH ×4 (05:17→23:16)
[2021-07-10] MEDS: oxyCODONE HCL 5 MG TABLET GT PRN ×2 (05:18→17:33)
[2021-07-10] MEDS: AMINO ACIDS/PROTEIN HYDROLYS 30 ML LIQUID.PKT GT SCH (09:56)
[2021-07-10] MEDS: DOCUSATE NA 100 MG/10 ML UNIT-DOSE CUPS GT PRN (09:56)
[2021-07-10] MEDS: FAMOTIDINE 40 MG/5 ML ORAL SUSPENSION PEG SCH (09:57)
[2021-07-10] MEDS: ASCORBIC ACID 250 MG TABLET (FP) GT SCH ×2 (09:57→22:27)
[2021-07-10] MEDS: LORazepam 0.5 MG TABLET GT PRN ×2 (09:58→22:27)
[2021-07-10] MEDS: BACITRACIN/POLYMYXIN B SULFATE 15 GM TUBE TP SCH (09:58)
[2021-07-10] MEDS: ZINC SULFATE 220 MG CAPSULE (FP) GT SCH (09:58)
[2021-07-10] MEDS: APIXABAN 5 MG TABLET GT SCH ×2 (09:58→22:27)
[2021-07-10] MEDS: COLLAGENASE CLOSTRIDIUM HIST. 30 GRAMS TUBE TP SCH (09:58)
[2021-07-10] MEDS: fentaNYL 25mcg/hr PATCH.TD72 TD SCH (13:06)
[2021-07-10] MEDS: FENTANYL PATCH WASTE TD PRN (13:12)
[2021-07-10] MEDS: SCOPOLAMINE HYDROBROMIDE 1 PATCH PATCH.TD72 TD SCH (13:15)
[2021-07-11] MEDS: oxyCODONE HCL 5 MG TABLET GT PRN ×3 (03:05→23:53)
[2021-07-11] MEDS: dilTIAZem HCL 60 MG TABLET NR SCH ×4 (06:37→23:55)
[2021-07-11] MEDS ORDERED: PT OWN MED DRAWER 7, Y5N ONE (07:36)
[2021-07-11 09:39] LABS: CALCIUM 9.4 mg/dL (8.5-10.1)
[2021-07-11 09:40] LABS: BLOOD UREA NITROGEN 12.6 mg/dL (7-18)
[2021-07-11 09:42] LABS: CREATININE 0.6 mg/dL (0.55-1.3)
[2021-07-11] MEDS: APIXABAN 5 MG TABLET GT SCH ×2 (10:14→23:00)
[2021-07-11] MEDS: ZINC SULFATE 220 MG CAPSULE (FP) GT SCH (10:14)
[2021-07-11] MEDS: AMINO ACIDS/PROTEIN HYDROLYS 30 ML LIQUID.PKT GT SCH (10:14)
[2021-07-11] MEDS: LORazepam 0.5 MG TABLET GT PRN ×2 (10:15→23:53)
[2021-07-11] MEDS: ASCORBIC ACID 250 MG TABLET (FP) GT SCH ×2 (10:17→23:00)
[2021-07-11] MEDS: COLLAGENASE CLOSTRIDIUM HIST. 30 GRAMS TUBE TP SCH (10:18)
[2021-07-11] MEDS: BACITRACIN/POLYMYXIN B SULFATE 15 GM TUBE TP SCH (10:19)
[2021-07-11] MEDS: FAMOTIDINE 40 MG/5 ML ORAL SUSPENSION PEG SCH (10:27)
[2021-07-12] MEDS: dilTIAZem HCL 60 MG TABLET NR SCH ×4 (05:39→23:02)
[2021-07-12] MEDS: oxyCODONE HCL 5 MG TABLET GT PRN ×2 (05:45→13:33)
[2021-07-12 08:57] LABS: CALCIUM 9.1 mg/dL (8.5-10.1)
[2021-07-12 08:58] LABS: BLOOD UREA NITROGEN 14.1 mg/dL (7-18)
[2021-07-12 09:01] LABS: CREATININE 0.6 mg/dL (0.55-1.3)
[2021-07-12] MEDS: AMINO ACIDS/PROTEIN HYDROLYS 30 ML LIQUID.PKT GT SCH (11:06)
[2021-07-12] MEDS: ZINC SULFATE 220 MG CAPSULE (FP) GT SCH (11:07)
[2021-07-12] MEDS: APIXABAN 5 MG TABLET GT SCH ×2 (11:07→22:52)
[2021-07-12] MEDS: FAMOTIDINE 40 MG/5 ML ORAL SUSPENSION PEG SCH (11:07)
[2021-07-12] MEDS: ASCORBIC ACID 250 MG TABLET (FP) GT SCH ×2 (11:07→22:52)
[2021-07-12] MEDS: COLLAGENASE CLOSTRIDIUM HIST. 30 GRAMS TUBE TP SCH (11:16)
[2021-07-12] MEDS: BACITRACIN/POLYMYXIN B SULFATE 15 GM TUBE TP SCH (11:16)
[2021-07-12] MEDS: LORazepam 0.5 MG TABLET GT PRN ×2 (11:25→22:52)
[2021-07-12 13:04] LABS: HEPATITIS B SURFACE AG MATERN NON-REACTIVE (NONREACTIVE)
[2021-07-12 13:33] LABS: HIV INTERPRETATION NEGATIVE (NEGATIVE)
[2021-07-12] MEDS ORDERED: PT OWN MED DRAWER 7, Y5N ONE (22:40)
[2021-07-13] MEDS: oxyCODONE HCL 5 MG TABLET GT PRN ×4 (02:01→22:15)
[2021-07-13] MEDS: dilTIAZem HCL 60 MG TABLET NR SCH ×3 (05:34→17:19)
[2021-07-13] MEDS: COLLAGENASE CLOSTRIDIUM HIST. 30 GRAMS TUBE TP SCH (09:26)
[2021-07-13] MEDS: APIXABAN 5 MG TABLET GT SCH ×2 (09:26→22:15)
[2021-07-13] MEDS: AMINO ACIDS/PROTEIN HYDROLYS 30 ML LIQUID.PKT GT SCH (09:26)
[2021-07-13] MEDS: LORazepam 0.5 MG TABLET GT PRN ×2 (09:26→19:57)
[2021-07-13] MEDS: ZINC SULFATE 220 MG CAPSULE (FP) GT SCH (09:26)
[2021-07-13] MEDS: BACITRACIN/POLYMYXIN B SULFATE 15 GM TUBE TP SCH (09:26)
[2021-07-13] MEDS ORDERED: PT OWN MED DRAWER 7, Y5N ONE (09:29)
[2021-07-13] MEDS: cloNIDine-TTS 0.3 MG /24 HRS PATCH.TDWK TD SCH (09:33)
[2021-07-13] MEDS: ASCORBIC ACID 250 MG TABLET (FP) GT SCH ×2 (09:34→22:15)
[2021-07-13] MEDS: FAMOTIDINE 40 MG/5 ML ORAL SUSPENSION PEG SCH (09:34)
[2021-07-13] MEDS: fentaNYL 25mcg/hr PATCH.TD72 TD SCH (13:49)
[2021-07-13] MEDS: SCOPOLAMINE HYDROBROMIDE 1 PATCH PATCH.TD72 TD SCH (13:50)
[2021-07-13] MEDS: FENTANYL PATCH WASTE TD PRN (14:00)
[2021-07-14] MEDS: dilTIAZem HCL 60 MG TABLET NR SCH ×5 (00:05→23:04)
[2021-07-14] MEDS: LORazepam 0.5 MG TABLET GT PRN ×2 (09:52→22:15)
[2021-07-14] MEDS: APIXABAN 5 MG TABLET GT SCH ×2 (09:52→22:14)
[2021-07-14] MEDS: oxyCODONE HCL 5 MG TABLET GT PRN ×3 (09:52→22:14)
[2021-07-14] MEDS: ZINC SULFATE 220 MG CAPSULE (FP) GT SCH (09:52)
[2021-07-14] MEDS: AMINO ACIDS/PROTEIN HYDROLYS 30 ML LIQUID.PKT GT SCH (09:52)
[2021-07-14] MEDS: ASCORBIC ACID 250 MG TABLET (FP) GT SCH ×2 (09:53→22:16)
[2021-07-14] MEDS: COLLAGENASE CLOSTRIDIUM HIST. 30 GRAMS TUBE TP SCH (09:53)
[2021-07-14] MEDS: BACITRACIN/POLYMYXIN B SULFATE 15 GM TUBE TP SCH (09:54)
[2021-07-14] MEDS ORDERED: amLODIPine BESYLATE 5 MG TABLET (FP) GT ONE (12:57)
[2021-07-14] MEDS: FAMOTIDINE 40 MG/5 ML ORAL SUSPENSION PEG SCH (13:46)
[2021-07-14 19:26] LABS: PH,URINE 5.5 (5.0-8.0); URINE APPEARANCE CLEAR; URINE BILIRUBIN NEGATIVE (NEGATIVE); URINE COLOR YELLOW; URINE GLUCOSE (UA) NEGATIVE (NEGATIVE); URINE KETONE NEGATIVE (NEGATIVE); URINE LEUK ESTERASE NEGATIVE (NEGATIVE); URINE NITRITE NEGATIVE (NEGATIVE); URINE PROTEIN NEGATIVE (NEGATIVE); URINE UROBILINOGEN 0.2 mg/dL (0.2-1.0)
[2021-07-15] MEDS: dilTIAZem HCL 60 MG TABLET NR SCH ×4 (06:09→23:02)
[2021-07-15] MEDS: oxyCODONE HCL 5 MG TABLET GT PRN (06:16)
[2021-07-15 08:25] LABS: BASO % 0.6 % (0-2.0); EOS % 1.4 % (0-4.5); HEMATOCRIT 36.8 % (35.4-49); HEMOGLOBIN 12.4 GM/dL (11.7-16.9); LYMPH % 15.2 % (8-40); MCH 29.3 pg (25.7-33.7); MCHC 33.7 g/dl (32.0-35.9); MEAN CELL VOLUME 86.9 fl (80-96); MONO % 10.3 % (3.8-10.2); NEUT % 72.5 % (42.8-82.8); PLATELET COUNT 268 10^3/uL (134-434); RBC 4.23 M/mm3 (4.00-5.60); RDW 14.1 % (11.9-15.9); WHITE BLOOD COUNT 8.4 K/mm3 (4.0-10.0)
[2021-07-15 09:19] LABS: CREATININE 0.5 mg/dL (0.55-1.3)
[2021-07-15] MEDS: AMINO ACIDS/PROTEIN HYDROLYS 30 ML LIQUID.PKT GT SCH (10:40)
[2021-07-15] MEDS: FAMOTIDINE 40 MG/5 ML ORAL SUSPENSION PEG SCH (10:41)
[2021-07-15] MEDS: ASCORBIC ACID 250 MG TABLET (FP) GT SCH ×2 (10:41→22:26)
[2021-07-15] MEDS: ZINC SULFATE 220 MG CAPSULE (FP) GT SCH (10:41)
[2021-07-15] MEDS: APIXABAN 5 MG TABLET GT SCH ×2 (10:41→22:26)
[2021-07-15] MEDS: BACITRACIN/POLYMYXIN B SULFATE 15 GM TUBE TP SCH (10:43)
[2021-07-15] MEDS: COLLAGENASE CLOSTRIDIUM HIST. 30 GRAMS TUBE TP SCH (11:00)
[2021-07-15] MEDS: ACETAMINOPHEN 1000 MG/100 ML BAG IVPB PRN ×2 (17:59→23:47)
[2021-07-15] MEDS ORDERED: PT OWN MED DRAWER 7, Y5N ONE (22:17)
[2021-07-15] MEDS: LORazepam 0.5 MG TABLET GT PRN (22:26)
[2021-07-15] MEDS: ZINC OXIDE 20% TOPICAL OINTMENT 30 GM TUBE TP SCH (22:27)
[2021-07-16] MEDS: oxyCODONE HCL 5 MG TABLET GT PRN ×3 (02:00→23:59)
[2021-07-16] MEDS: dilTIAZem HCL 60 MG TABLET NR SCH ×4 (05:23→23:05)
[2021-07-16] MEDS: ACETAMINOPHEN 1000 MG/100 ML BAG IVPB PRN (08:45)
[2021-07-16] MEDS: AMINO ACIDS/PROTEIN HYDROLYS 30 ML LIQUID.PKT GT SCH (08:46)
[2021-07-16] MEDS: LORazepam 0.5 MG TABLET GT PRN ×2 (08:49→22:44)
[2021-07-16] MEDS: ZINC SULFATE 220 MG CAPSULE (FP) GT SCH (09:06)
[2021-07-16] MEDS: APIXABAN 5 MG TABLET GT SCH ×2 (09:06→22:44)
[2021-07-16] MEDS: ASCORBIC ACID 250 MG TABLET (FP) GT SCH ×2 (09:07→22:44)
[2021-07-16] MEDS: COLLAGENASE CLOSTRIDIUM HIST. 30 GRAMS TUBE TP SCH (09:07)
[2021-07-16] MEDS: ZINC OXIDE 20% TOPICAL OINTMENT 30 GM TUBE TP SCH ×2 (09:07→22:44)
[2021-07-16] MEDS: BACITRACIN/POLYMYXIN B SULFATE 15 GM TUBE TP SCH (09:07)
[2021-07-16] MEDS ORDERED: oxyCODONE HCL 5 MG TABLET PO ONE (10:00)
[2021-07-16] MEDS: FAMOTIDINE 40 MG/5 ML ORAL SUSPENSION PEG SCH (11:00)
[2021-07-16] MEDS: fentaNYL 25mcg/hr PATCH.TD72 TD SCH (12:46)
[2021-07-16] MEDS: SCOPOLAMINE HYDROBROMIDE 1 PATCH PATCH.TD72 TD SCH (15:00)
[2021-07-16] MEDS: FENTANYL PATCH WASTE TD PRN (15:33)
[2021-07-16] MEDS ORDERED: PT OWN MED DRAWER 7, Y5N ONE (22:14)
[2021-07-16] MEDS: ACETAMINOPHEN 325 MG TABLET (FP) PO PRN (23:59)
[2021-07-17] MEDS: dilTIAZem HCL 60 MG TABLET NR SCH ×4 (05:35→23:12)
[2021-07-17] MEDS: ACETAMINOPHEN 325 MG TABLET (FP) PO PRN (10:05)
[2021-07-17] MEDS: AMINO ACIDS/PROTEIN HYDROLYS 30 ML LIQUID.PKT GT SCH (10:05)
[2021-07-17] MEDS: ASCORBIC ACID 250 MG TABLET (FP) GT SCH ×2 (10:06→23:00)
[2021-07-17] MEDS: oxyCODONE HCL 5 MG TABLET GT PRN (10:07)
[2021-07-17] MEDS: APIXABAN 5 MG TABLET GT SCH ×2 (10:07→23:02)
[2021-07-17] MEDS: ZINC SULFATE 220 MG CAPSULE (FP) GT SCH (10:07)
[2021-07-17] MEDS: LORazepam 0.5 MG TABLET GT PRN (10:08)
[2021-07-17] MEDS: COLLAGENASE CLOSTRIDIUM HIST. 30 GRAMS TUBE TP SCH (10:09)
[2021-07-17] MEDS: BACITRACIN/POLYMYXIN B SULFATE 15 GM TUBE TP SCH (10:10)
[2021-07-17] MEDS: FAMOTIDINE 40 MG/5 ML ORAL SUSPENSION PEG SCH (10:11)
[2021-07-17] MEDS: ZINC OXIDE 20% TOPICAL OINTMENT 30 GM TUBE TP SCH ×2 (10:12→23:03)
[2021-07-17] MEDS ORDERED: PT OWN MED DRAWER 7, Y5N ONE (22:54)
[2021-07-17] MEDS: oxyCODONE HCL 5 MG TABLET PO PRN (23:00)
[2021-07-18] MEDS: dilTIAZem HCL 60 MG TABLET NR SCH ×4 (05:24→23:04)
[2021-07-18] MEDS: LORazepam 0.5 MG TABLET PO PRN (10:36)
[2021-07-18] MEDS: oxyCODONE HCL 5 MG TABLET PO PRN ×2 (10:36→17:00)
[2021-07-18] MEDS: APIXABAN 5 MG TABLET GT SCH ×2 (10:36→23:04)
[2021-07-18] MEDS: ZINC SULFATE 220 MG CAPSULE (FP) GT SCH (10:36)
[2021-07-18] MEDS: AMINO ACIDS/PROTEIN HYDROLYS 30 ML LIQUID.PKT GT SCH (10:36)
[2021-07-18] MEDS: BACITRACIN/POLYMYXIN B SULFATE 15 GM TUBE TP SCH (10:37)
[2021-07-18] MEDS: COLLAGENASE CLOSTRIDIUM HIST. 30 GRAMS TUBE TP SCH (10:37)
[2021-07-18] MEDS: FAMOTIDINE 40 MG/5 ML ORAL SUSPENSION PEG SCH (10:38)
[2021-07-18] MEDS: ASCORBIC ACID 250 MG TABLET (FP) GT SCH ×2 (10:39→23:04)
[2021-07-18] MEDS: ZINC OXIDE 20% TOPICAL OINTMENT 30 GM TUBE TP SCH ×2 (10:39→23:06)
[2021-07-18] MEDS ORDERED: PT OWN MED DRAWER 7, Y5N ONE ×2 (11:47→22:59)
[2021-07-18] MEDS: NYSTATIN 100000 UNIT/GM TOPICAL OINTMENT 15 GM TUBE TP SCH (23:05)
[2021-07-19] MEDS: oxyCODONE HCL 5 MG TABLET PO PRN ×2 (02:51→22:40)
[2021-07-19] MEDS ORDERED: PT OWN MED DRAWER 7, Y5N ONE ×3 (04:58→22:24)
[2021-07-19] MEDS: dilTIAZem HCL 60 MG TABLET NR SCH ×4 (05:27→23:44)
[2021-07-19] MEDS: NYSTATIN 100000 UNIT/GM TOPICAL OINTMENT 15 GM TUBE TP SCH ×2 (11:07→23:16)
[2021-07-19] MEDS: BACITRACIN/POLYMYXIN B SULFATE 15 GM TUBE TP SCH (11:07)
[2021-07-19] MEDS: COLLAGENASE CLOSTRIDIUM HIST. 30 GRAMS TUBE TP SCH (11:07)
[2021-07-19] MEDS: ASCORBIC ACID 250 MG TABLET (FP) GT SCH ×2 (11:08→23:17)
[2021-07-19] MEDS: APIXABAN 5 MG TABLET GT SCH ×2 (11:08→22:40)
[2021-07-19] MEDS: ZINC SULFATE 220 MG CAPSULE (FP) GT SCH (11:08)
[2021-07-19] MEDS: AMINO ACIDS/PROTEIN HYDROLYS 30 ML LIQUID.PKT GT SCH (11:08)
[2021-07-19] MEDS: FAMOTIDINE 40 MG/5 ML ORAL SUSPENSION PEG SCH (11:10)
[2021-07-19] MEDS: SCOPOLAMINE HYDROBROMIDE 1 PATCH PATCH.TD72 TD SCH (14:40)
[2021-07-19] MEDS: LORazepam 0.5 MG TABLET PO PRN (14:42)
[2021-07-19] MEDS: ZINC OXIDE 20% TOPICAL OINTMENT 30 GM TUBE TP SCH ×2 (14:43→23:17)
[2021-07-20] MEDS: oxyCODONE HCL 5 MG TABLET PO PRN ×2 (04:53→17:54)
[2021-07-20] MEDS: ACETAMINOPHEN 325 MG TABLET (FP) PO PRN (04:53)
[2021-07-20] MEDS: dilTIAZem HCL 60 MG TABLET NR SCH ×4 (05:01→23:08)
[2021-07-20] MEDS ORDERED: PT OWN MED DRAWER 7, Y5N ONE ×2 (11:19→11:41)
[2021-07-20] MEDS: AMINO ACIDS/PROTEIN HYDROLYS 30 ML LIQUID.PKT GT SCH (11:37)
[2021-07-20] MEDS: ASCORBIC ACID 250 MG TABLET (FP) GT SCH ×2 (11:37→22:38)
[2021-07-20] MEDS: APIXABAN 5 MG TABLET GT SCH ×2 (11:37→22:38)
[2021-07-20] MEDS: FAMOTIDINE 40 MG/5 ML ORAL SUSPENSION PEG SCH (11:37)
[2021-07-20] MEDS: COLLAGENASE CLOSTRIDIUM HIST. 30 GRAMS TUBE TP SCH (11:38)
[2021-07-20] MEDS: ZINC SULFATE 220 MG CAPSULE (FP) GT SCH (11:39)
[2021-07-20] MEDS: BACITRACIN/POLYMYXIN B SULFATE 15 GM TUBE TP SCH (11:39)
[2021-07-20] MEDS: NYSTATIN 100000 UNIT/GM TOPICAL OINTMENT 15 GM TUBE TP SCH ×2 (11:39→22:37)
[2021-07-20] MEDS: cloNIDine-TTS 0.3 MG /24 HRS PATCH.TDWK TD SCH (11:44)
[2021-07-20] MEDS: ZINC OXIDE 20% TOPICAL OINTMENT 30 GM TUBE TP SCH ×2 (12:37→22:38)
[2021-07-20] MEDS: LORazepam 0.5 MG TABLET PO PRN (22:38)
[2021-07-21] MEDS: oxyCODONE HCL 5 MG TABLET PO PRN ×3 (02:57→20:18)
[2021-07-21] MEDS: ACETAMINOPHEN 325 MG TABLET (FP) PO PRN (02:58)
[2021-07-21] MEDS: dilTIAZem HCL 60 MG TABLET NR SCH ×4 (05:16→23:14)
[2021-07-21 09:01] LABS: BASO % 0.5 % (0-2.0); EOS % 1.9 % (0-4.5); HEMATOCRIT 38.6 % (35.4-49); HEMOGLOBIN 12.7 GM/dL (11.7-16.9); LYMPH % 16.3 % (8-40); MCH 28.8 pg (25.7-33.7); MCHC 32.9 g/dl (32.0-35.9); MEAN CELL VOLUME 87.4 fl (80-96); MEAN PLT VOLUME 8.6 fl (7.5-11.1); MONO % 9.3 % (3.8-10.2); PLATELET COUNT 306 10^3/uL (134-434); RBC 4.41 M/mm3 (4.00-5.60); RDW 13.9 % (11.9-15.9); WHITE BLOOD COUNT 7.6 K/mm3 (4.0-10.0)
[2021-07-21 09:18] LABS: BLOOD UREA NITROGEN 11.8 mg/dL (7-18); CALCIUM 9.3 mg/dL (8.5-10.1)
[2021-07-21 09:22] LABS: CREATININE 0.5 mg/dL (0.55-1.3)
[2021-07-21] MEDS: APIXABAN 5 MG TABLET GT SCH ×2 (09:57→21:09)
[2021-07-21] MEDS: LORazepam 0.5 MG TABLET PO PRN ×2 (09:57→22:30)
[2021-07-21] MEDS: AMINO ACIDS/PROTEIN HYDROLYS 30 ML LIQUID.PKT GT SCH (09:57)
[2021-07-21] MEDS: ZINC SULFATE 220 MG CAPSULE (FP) GT SCH (09:57)
[2021-07-21] MEDS: FAMOTIDINE 40 MG/5 ML ORAL SUSPENSION PEG SCH (09:58)
[2021-07-21] MEDS: ASCORBIC ACID 250 MG TABLET (FP) GT SCH ×2 (09:58→21:09)
[2021-07-21] MEDS: COLLAGENASE CLOSTRIDIUM HIST. 30 GRAMS TUBE TP SCH (10:00)
[2021-07-21] MEDS: NYSTATIN 100000 UNIT/GM TOPICAL OINTMENT 15 GM TUBE TP SCH ×2 (10:02→21:09)
[2021-07-21] MEDS: BACITRACIN/POLYMYXIN B SULFATE 15 GM TUBE TP SCH (10:02)
[2021-07-21] MEDS: ZINC OXIDE 20% TOPICAL OINTMENT 30 GM TUBE TP SCH ×2 (10:06→21:09)
[2021-07-21] MEDS ORDERED: FENTANYL PATCH WASTE TD PRN (14:09)
[2021-07-21] MEDS: fentaNYL 25mcg/hr PATCH.TD72 TD SCH (15:47)
[2021-07-21] MEDS ORDERED: PT OWN MED DRAWER 7, Y5N ONE (20:16)
[2021-07-22] MEDS: oxyCODONE HCL 5 MG TABLET PO PRN ×3 (04:36→23:10)
[2021-07-22] MEDS: dilTIAZem HCL 60 MG TABLET NR SCH ×4 (05:35→23:12)
[2021-07-22] MEDS ORDERED: PT OWN MED DRAWER 7, Y5N ONE (10:04)
[2021-07-22] MEDS: ZINC SULFATE 220 MG CAPSULE (FP) GT SCH (10:10)
[2021-07-22] MEDS: APIXABAN 5 MG TABLET GT SCH ×2 (10:10→21:10)
[2021-07-22] MEDS: AMINO ACIDS/PROTEIN HYDROLYS 30 ML LIQUID.PKT GT SCH (10:10)
[2021-07-22] MEDS: ASCORBIC ACID 250 MG TABLET (FP) GT SCH ×2 (10:10→21:10)
[2021-07-22] MEDS: COLLAGENASE CLOSTRIDIUM HIST. 30 GRAMS TUBE TP SCH (10:11)
[2021-07-22] MEDS: NYSTATIN 100000 UNIT/GM TOPICAL OINTMENT 15 GM TUBE TP SCH ×2 (10:14→21:11)
[2021-07-22] MEDS: FAMOTIDINE 40 MG/5 ML ORAL SUSPENSION PEG SCH (10:14)
[2021-07-22] MEDS: BACITRACIN/POLYMYXIN B SULFATE 15 GM TUBE TP SCH (10:15)
[2021-07-22] MEDS: ZINC OXIDE 20% TOPICAL OINTMENT 30 GM TUBE TP SCH ×2 (10:15→21:11)
[2021-07-22] MEDS: LORazepam 0.5 MG TABLET PO PRN ×2 (10:17→21:10)
[2021-07-22] MEDS: SCOPOLAMINE HYDROBROMIDE 1 PATCH PATCH.TD72 TD SCH (14:21)
[2021-07-23] MEDS: dilTIAZem HCL 60 MG TABLET NR SCH ×3 (05:13→17:12)
[2021-07-23] MEDS: oxyCODONE HCL 5 MG TABLET PO PRN ×2 (05:13→12:05)
[2021-07-23] MEDS ORDERED: PT OWN MED DRAWER 7, Y5N ONE ×2 (10:05→20:18)
[2021-07-23] MEDS: APIXABAN 5 MG TABLET GT SCH ×2 (10:33→21:33)
[2021-07-23] MEDS: FAMOTIDINE 40 MG/5 ML ORAL SUSPENSION PEG SCH (10:33)
[2021-07-23] MEDS: AMINO ACIDS/PROTEIN HYDROLYS 30 ML LIQUID.PKT GT SCH (10:33)
[2021-07-23] MEDS: ASCORBIC ACID 250 MG TABLET (FP) GT SCH ×2 (10:33→21:33)
[2021-07-23] MEDS: ZINC SULFATE 220 MG CAPSULE (FP) GT SCH (10:33)
[2021-07-23] MEDS: COLLAGENASE CLOSTRIDIUM HIST. 30 GRAMS TUBE TP SCH (10:34)
[2021-07-23] MEDS: BACITRACIN/POLYMYXIN B SULFATE 15 GM TUBE TP SCH (10:35)
[2021-07-23] MEDS: NYSTATIN 100000 UNIT/GM TOPICAL OINTMENT 15 GM TUBE TP SCH ×2 (10:35→21:31)
[2021-07-23] MEDS: ZINC OXIDE 20% TOPICAL OINTMENT 30 GM TUBE TP SCH ×2 (17:12→21:30)
[2021-07-23] MEDS: oxyCODONE HCL 5 MG TABLET GT PRN (17:12)
[2021-07-23] MEDS: LORazepam 0.5 MG TABLET GT PRN (21:33)
[2021-07-24] MEDS: dilTIAZem HCL 60 MG TABLET NR SCH ×5 (00:05→23:11)
[2021-07-24] MEDS: ACETAMINOPHEN 325 MG TABLET (FP) PO PRN (03:50)
[2021-07-24] MEDS ORDERED: PT OWN MED DRAWER 7, Y5N ONE ×2 (10:46→22:04)
[2021-07-24] MEDS: LORazepam 0.5 MG TABLET GT PRN ×2 (11:02→23:11)
[2021-07-24] MEDS: AMINO ACIDS/PROTEIN HYDROLYS 30 ML LIQUID.PKT GT SCH (11:03)
[2021-07-24] MEDS: ASCORBIC ACID 250 MG TABLET (FP) GT SCH ×2 (11:03→22:34)
[2021-07-24] MEDS: ZINC SULFATE 220 MG CAPSULE (FP) GT SCH (11:03)
[2021-07-24] MEDS: APIXABAN 5 MG TABLET GT SCH ×2 (11:03→22:34)
[2021-07-24] MEDS: FAMOTIDINE 40 MG/5 ML ORAL SUSPENSION PEG SCH (11:04)
[2021-07-24] MEDS: COLLAGENASE CLOSTRIDIUM HIST. 30 GRAMS TUBE TP SCH (11:06)
[2021-07-24] MEDS: BACITRACIN/POLYMYXIN B SULFATE 15 GM TUBE TP SCH (11:07)
[2021-07-24] MEDS: ZINC OXIDE 20% TOPICAL OINTMENT 30 GM TUBE TP SCH ×2 (11:07→23:11)
[2021-07-24] MEDS: NYSTATIN 100000 UNIT/GM TOPICAL OINTMENT 15 GM TUBE TP SCH ×2 (11:07→23:11)
[2021-07-24] MEDS: fentaNYL 25mcg/hr PATCH.TD72 TD SCH (13:26)
[2021-07-24] MEDS: FENTANYL PATCH WASTE TD PRN (13:40)
[2021-07-25] MEDS: ACETAMINOPHEN 325 MG TABLET (FP) PO PRN ×2 (00:27→21:48)
[2021-07-25] MEDS: oxyCODONE HCL 5 MG TABLET GT PRN ×4 (00:27→23:32)
[2021-07-25] MEDS: dilTIAZem HCL 60 MG TABLET NR SCH ×4 (05:31→23:32)
[2021-07-25] MEDS: FAMOTIDINE 40 MG/5 ML ORAL SUSPENSION PEG SCH (09:50)
[2021-07-25] MEDS: APIXABAN 5 MG TABLET GT SCH ×2 (09:50→21:48)
[2021-07-25] MEDS: AMINO ACIDS/PROTEIN HYDROLYS 30 ML LIQUID.PKT GT SCH (09:50)
[2021-07-25] MEDS: ASCORBIC ACID 250 MG TABLET (FP) GT SCH ×2 (09:51→21:48)
[2021-07-25] MEDS: LORazepam 0.5 MG TABLET GT PRN ×2 (09:51→21:48)
[2021-07-25] MEDS: ZINC OXIDE 20% TOPICAL OINTMENT 30 GM TUBE TP SCH ×2 (09:53→23:46)
[2021-07-25] MEDS: COLLAGENASE CLOSTRIDIUM HIST. 30 GRAMS TUBE TP SCH (09:54)
[2021-07-25] MEDS: NYSTATIN 100000 UNIT/GM TOPICAL OINTMENT 15 GM TUBE TP SCH ×2 (09:56→23:46)
[2021-07-25] MEDS: BACITRACIN/POLYMYXIN B SULFATE 15 GM TUBE TP SCH (09:56)
[2021-07-25] MEDS: ZINC SULFATE 220 MG CAPSULE (FP) GT SCH (10:06)
[2021-07-25] MEDS: SCOPOLAMINE HYDROBROMIDE 1 PATCH PATCH.TD72 TD SCH (14:31)
[2021-07-25] MEDS ORDERED: PT OWN MED DRAWER 7, Y5N ONE (21:10)
[2021-07-26] MEDS: dilTIAZem HCL 60 MG TABLET NR SCH ×3 (05:48→17:26)
[2021-07-26] MEDS: FAMOTIDINE 40 MG/5 ML ORAL SUSPENSION PEG SCH (09:43)
[2021-07-26] MEDS: AMINO ACIDS/PROTEIN HYDROLYS 30 ML LIQUID.PKT GT SCH (09:43)
[2021-07-26] MEDS: APIXABAN 5 MG TABLET GT SCH ×2 (09:43→22:28)
[2021-07-26] MEDS: ZINC SULFATE 220 MG CAPSULE (FP) GT SCH (09:43)
[2021-07-26] MEDS: ASCORBIC ACID 250 MG TABLET (FP) GT SCH ×2 (09:43→22:28)
[2021-07-26] MEDS: ZINC OXIDE 20% TOPICAL OINTMENT 30 GM TUBE TP SCH ×2 (09:44→22:28)
[2021-07-26] MEDS: NYSTATIN 100000 UNIT/GM TOPICAL OINTMENT 15 GM TUBE TP SCH ×2 (09:45→22:28)
[2021-07-26] MEDS: COLLAGENASE CLOSTRIDIUM HIST. 30 GRAMS TUBE TP SCH (09:45)
[2021-07-26] MEDS: BACITRACIN/POLYMYXIN B SULFATE 15 GM TUBE TP SCH (09:46)
[2021-07-26] MEDS: LORazepam 0.5 MG TABLET GT PRN (09:50)
[2021-07-26] MEDS: ACETAMINOPHEN 325 MG TABLET (FP) PO PRN (13:30)
[2021-07-26] MEDS ORDERED: oxyCODONE HCL 5 MG TABLET PO PRN (17:54)
[2021-07-26] MEDS: oxyCODONE HCL 5 MG TABLET GT PRN (18:04)
[2021-07-27] MEDS: dilTIAZem HCL 60 MG TABLET NR SCH ×5 (00:37→23:14)
[2021-07-27] MEDS: AMINO ACIDS/PROTEIN HYDROLYS 30 ML LIQUID.PKT GT SCH (11:01)
[2021-07-27] MEDS: ACETAMINOPHEN 650 MG/20.3 ML ORAL SOLUTION (CUPS) GT PRN ×3 (11:01→22:59)
[2021-07-27] MEDS: ASCORBIC ACID 250 MG TABLET (FP) GT SCH ×2 (11:02→22:58)
[2021-07-27] MEDS: FAMOTIDINE 40 MG/5 ML ORAL SUSPENSION PEG SCH (11:02)
[2021-07-27] MEDS: oxyCODONE HCL 5 MG TABLET GT PRN (11:02)
[2021-07-27] MEDS: APIXABAN 5 MG TABLET GT SCH ×2 (11:02→22:58)
[2021-07-27] MEDS: ZINC SULFATE 220 MG CAPSULE (FP) GT SCH (11:03)
[2021-07-27] MEDS: cloNIDine-TTS 0.3 MG /24 HRS PATCH.TDWK TD SCH (11:03)
[2021-07-27] MEDS: NYSTATIN 100000 UNIT/GM TOPICAL OINTMENT 15 GM TUBE TP SCH ×2 (11:05→23:14)
[2021-07-27] MEDS: COLLAGENASE CLOSTRIDIUM HIST. 30 GRAMS TUBE TP SCH (11:05)
[2021-07-27] MEDS: ZINC OXIDE 20% TOPICAL OINTMENT 30 GM TUBE TP SCH ×2 (11:06→23:14)
[2021-07-27] MEDS: BACITRACIN/POLYMYXIN B SULFATE 15 GM TUBE TP SCH (11:06)
[2021-07-27] MEDS: fentaNYL 25mcg/hr PATCH.TD72 TD SCH (13:48)
[2021-07-27] MEDS: oxyCODONE HCL 5 MG TABLET PO PRN (17:27)
[2021-07-27] MEDS ORDERED: INSULIN (LEVEMIR) 100 UNITS/ML UNITS SQ ONE (18:13)
[2021-07-27] MEDS ORDERED: PT OWN MED DRAWER 7, Y5N ONE (22:51)
[2021-07-27] MEDS: LORazepam 0.5 MG TABLET GT PRN (22:58)
[2021-07-28] MEDS: dilTIAZem HCL 60 MG TABLET NR SCH ×4 (05:49→23:03)
[2021-07-28] MEDS: LORazepam 0.5 MG TABLET GT PRN ×2 (09:49→23:03)
[2021-07-28] MEDS: AMINO ACIDS/PROTEIN HYDROLYS 30 ML LIQUID.PKT GT SCH (09:50)
[2021-07-28] MEDS: APIXABAN 5 MG TABLET GT SCH ×2 (09:50→23:03)
[2021-07-28] MEDS: ZINC SULFATE 220 MG CAPSULE (FP) GT SCH (09:50)
[2021-07-28] MEDS: FAMOTIDINE 40 MG/5 ML ORAL SUSPENSION PEG SCH (09:51)
[2021-07-28] MEDS: NYSTATIN 100000 UNIT/GM TOPICAL OINTMENT 15 GM TUBE TP SCH ×2 (09:52→23:04)
[2021-07-28] MEDS: ZINC OXIDE 20% TOPICAL OINTMENT 30 GM TUBE TP SCH ×2 (09:53→23:03)
[2021-07-28] MEDS: COLLAGENASE CLOSTRIDIUM HIST. 30 GRAMS TUBE TP SCH (09:53)
[2021-07-28] MEDS: BACITRACIN/POLYMYXIN B SULFATE 15 GM TUBE TP SCH (09:53)
[2021-07-28] MEDS: ASCORBIC ACID 250 MG TABLET (FP) GT SCH ×2 (09:54→23:03)
[2021-07-28] MEDS: SCOPOLAMINE HYDROBROMIDE 1 PATCH PATCH.TD72 TD SCH (15:31)
[2021-07-28] MEDS: oxyCODONE HCL 5 MG TABLET PO PRN (15:31)
[2021-07-28] MEDS ORDERED: PT OWN MED DRAWER 7, Y5N ONE (22:57)
[2021-07-29] MEDS: ACETAMINOPHEN 650 MG/20.3 ML ORAL SOLUTION (CUPS) GT PRN ×2 (03:28→12:19)
[2021-07-29] MEDS: oxyCODONE HCL 5 MG TABLET PO PRN ×3 (06:04→22:41)
[2021-07-29] MEDS: dilTIAZem HCL 60 MG TABLET NR SCH ×3 (06:04→17:11)
[2021-07-29] MEDS: AMINO ACIDS/PROTEIN HYDROLYS 30 ML LIQUID.PKT GT SCH (12:20)
[2021-07-29] MEDS: FAMOTIDINE 40 MG/5 ML ORAL SUSPENSION PEG SCH (12:21)
[2021-07-29] MEDS: ZINC SULFATE 220 MG CAPSULE (FP) GT SCH (12:21)
[2021-07-29] MEDS: APIXABAN 5 MG TABLET GT SCH ×2 (12:21→22:41)
[2021-07-29] MEDS: ASCORBIC ACID 250 MG TABLET (FP) GT SCH (12:22)
[2021-07-29] MEDS: ZINC OXIDE 20% TOPICAL OINTMENT 30 GM TUBE TP SCH ×2 (12:26→22:42)
[2021-07-29] MEDS: NYSTATIN 100000 UNIT/GM TOPICAL OINTMENT 15 GM TUBE TP SCH ×2 (12:26→22:42)
[2021-07-29] MEDS: BACITRACIN/POLYMYXIN B SULFATE 15 GM TUBE TP SCH (12:26)
[2021-07-29] MEDS: COLLAGENASE CLOSTRIDIUM HIST. 30 GRAMS TUBE TP SCH (12:27)
[2021-07-29] MEDS: LORazepam 0.5 MG TABLET GT PRN (12:43)
[2021-07-29] MEDS ORDERED: PT OWN MED DRAWER 7, Y5N ONE ×2 (22:39→22:42)
[2021-07-30] MEDS: dilTIAZem HCL 60 MG TABLET NR SCH ×4 (01:54→17:41)
[2021-07-30] MEDS: ASCORBIC ACID 250 MG TABLET (FP) GT SCH ×3 (02:32→21:26)
[2021-07-30] MEDS: ZINC SULFATE 220 MG CAPSULE (FP) GT SCH (11:00)
[2021-07-30] MEDS: oxyCODONE HCL 5 MG TABLET PO PRN (11:00)
[2021-07-30] MEDS: FAMOTIDINE 40 MG/5 ML ORAL SUSPENSION PEG SCH (11:00)
[2021-07-30] MEDS: APIXABAN 5 MG TABLET GT SCH ×2 (11:00→21:26)
[2021-07-30] MEDS: AMINO ACIDS/PROTEIN HYDROLYS 30 ML LIQUID.PKT GT SCH (11:01)
[2021-07-30] MEDS: BACITRACIN/POLYMYXIN B SULFATE 15 GM TUBE TP SCH (11:03)
[2021-07-30] MEDS: COLLAGENASE CLOSTRIDIUM HIST. 30 GRAMS TUBE TP SCH (11:04)
[2021-07-30] MEDS: ZINC OXIDE 20% TOPICAL OINTMENT 30 GM TUBE TP SCH ×2 (11:04→21:26)
[2021-07-30] MEDS: NYSTATIN 100000 UNIT/GM TOPICAL OINTMENT 15 GM TUBE TP SCH ×2 (11:04→21:26)
[2021-07-30] MEDS ORDERED: PT OWN MED DRAWER 7, Y5N ONE (20:57)
[2021-07-30] MEDS: LORazepam 0.5 MG TABLET GT PRN (23:23)
[2021-07-30] MEDS: ACETAMINOPHEN 650 MG/20.3 ML ORAL SOLUTION (CUPS) GT PRN (23:23)
[2021-07-31] MEDS: dilTIAZem HCL 60 MG TABLET NR SCH ×5 (00:15→23:42)
[2021-07-31] MEDS ORDERED: PT OWN MED DRAWER 7, Y5N ONE (10:49)
[2021-07-31] MEDS: AMINO ACIDS/PROTEIN HYDROLYS 30 ML LIQUID.PKT GT SCH (11:04)
[2021-07-31] MEDS: ZINC SULFATE 220 MG CAPSULE (FP) GT SCH (11:04)
[2021-07-31] MEDS: APIXABAN 5 MG TABLET GT SCH ×2 (11:04→21:34)
[2021-07-31] MEDS: ASCORBIC ACID 250 MG TABLET (FP) GT SCH ×2 (11:05→21:34)
[2021-07-31] MEDS: FAMOTIDINE 40 MG/5 ML ORAL SUSPENSION PEG SCH (11:05)
[2021-07-31] MEDS: BACITRACIN/POLYMYXIN B SULFATE 15 GM TUBE TP SCH (11:06)
[2021-07-31 11:51] LABS: HEMATOCRIT 36.1 % (35.4-49); HEMOGLOBIN 12.3 GM/dL (11.7-16.9); MCH 29.2 pg (25.7-33.7); MCHC 34.2 g/dl (32.0-35.9); MEAN CELL VOLUME 85.5 fl (80-96); PLATELET COUNT 313 10^3/uL (134-434); RBC 4.22 M/mm3 (4.00-5.60); RDW 14.3 % (11.9-15.9); WHITE BLOOD COUNT 7.7 K/mm3 (4.0-10.0)
[2021-07-31 12:01] LABS: CALCIUM 9.1 mg/dL (8.5-10.1)
[2021-07-31 12:02] LABS: ALBUMIN 3.2 g/dl (3.4-5.0); BLOOD UREA NITROGEN 12.7 mg/dL (7-18)
[2021-07-31 12:05] LABS: CREATININE 0.5 mg/dL (0.55-1.3)
[2021-07-31 12:07] LABS: BILIRUBIN,TOTAL 0.4 mg/dL (0.2-1); TOT PROT 6.4 g/dl (6.4-8.2)
[2021-07-31] MEDS: ACETAMINOPHEN 650 MG/20.3 ML ORAL SOLUTION (CUPS) GT PRN (16:21)
[2021-07-31] MEDS: COLLAGENASE CLOSTRIDIUM HIST. 30 GRAMS TUBE TP SCH (16:22)
[2021-07-31] MEDS: SCOPOLAMINE HYDROBROMIDE 1 PATCH PATCH.TD72 TD SCH (16:22)
[2021-07-31] MEDS: ZINC OXIDE 20% TOPICAL OINTMENT 30 GM TUBE TP SCH ×2 (16:22→21:35)
[2021-07-31] MEDS: NYSTATIN 100000 UNIT/GM TOPICAL OINTMENT 15 GM TUBE TP SCH ×2 (16:22→21:34)
[2021-07-31] MEDS: LORazepam 0.5 MG TABLET GT PRN (21:34)
[2021-07-31] MEDS: oxyCODONE HCL 5 MG TABLET GT PRN (21:35)
[2021-08-01] MEDS: dilTIAZem HCL 60 MG TABLET NR SCH ×4 (05:13→23:02)
[2021-08-01] MEDS: oxyCODONE HCL 5 MG TABLET GT PRN ×3 (05:13→23:02)
[2021-08-01] MEDS ORDERED: PT OWN MED DRAWER 7, Y5N ONE ×2 (12:02→22:55)
[2021-08-01] MEDS: BACITRACIN/POLYMYXIN B SULFATE 15 GM TUBE TP SCH (12:12)
[2021-08-01] MEDS: COLLAGENASE CLOSTRIDIUM HIST. 30 GRAMS TUBE TP SCH (12:12)
[2021-08-01] MEDS: LORazepam 0.5 MG TABLET GT PRN ×2 (12:14→23:03)
[2021-08-01] MEDS: APIXABAN 5 MG TABLET GT SCH ×2 (12:14→23:03)
[2021-08-01] MEDS: ZINC SULFATE 220 MG CAPSULE (FP) GT SCH (12:14)
[2021-08-01] MEDS: AMINO ACIDS/PROTEIN HYDROLYS 30 ML LIQUID.PKT GT SCH (12:14)
[2021-08-01] MEDS: ASCORBIC ACID 250 MG TABLET (FP) GT SCH (12:15)
[2021-08-01] MEDS: FAMOTIDINE 40 MG/5 ML ORAL SUSPENSION PEG SCH (12:16)
[2021-08-01] MEDS: ZINC OXIDE 20% TOPICAL OINTMENT 30 GM TUBE TP SCH ×2 (12:16→23:04)
[2021-08-01] MEDS: NYSTATIN 100000 UNIT/GM TOPICAL OINTMENT 15 GM TUBE TP SCH ×2 (12:16→23:04)
[2021-08-01] MEDS: ACETAMINOPHEN 650 MG/20.3 ML ORAL SOLUTION (CUPS) GT PRN (16:45)
[2021-08-02] MEDS: ASCORBIC ACID 250 MG TABLET (FP) GT SCH ×3 (01:12→23:06)
[2021-08-02] MEDS: dilTIAZem HCL 60 MG TABLET NR SCH ×4 (05:02→23:04)
[2021-08-02] MEDS: AMINO ACIDS/PROTEIN HYDROLYS 30 ML LIQUID.PKT GT SCH (09:35)
[2021-08-02] MEDS: oxyCODONE HCL 5 MG TABLET GT PRN ×2 (09:36→23:04)
[2021-08-02] MEDS: LORazepam 0.5 MG TABLET GT PRN ×2 (09:36→23:06)
[2021-08-02] MEDS: APIXABAN 5 MG TABLET GT SCH ×2 (09:36→23:04)
[2021-08-02] MEDS: ZINC SULFATE 220 MG CAPSULE (FP) GT SCH (09:37)
[2021-08-02] MEDS: COLLAGENASE CLOSTRIDIUM HIST. 30 GRAMS TUBE TP SCH (09:39)
[2021-08-02] MEDS: NYSTATIN 100000 UNIT/GM TOPICAL OINTMENT 15 GM TUBE TP SCH ×2 (09:39→23:08)
[2021-08-02] MEDS: BACITRACIN/POLYMYXIN B SULFATE 15 GM TUBE TP SCH (09:39)
[2021-08-02] MEDS: ZINC OXIDE 20% TOPICAL OINTMENT 30 GM TUBE TP SCH ×2 (09:39→23:07)
[2021-08-02] MEDS: FAMOTIDINE 40 MG/5 ML ORAL SUSPENSION PEG SCH (09:39)
[2021-08-02 12:43] LABS: HEMATOCRIT 36.2 % (35.4-49); HEMOGLOBIN 12.2 GM/dL (11.7-16.9); MCH 29.1 pg (25.7-33.7); MCHC 33.6 g/dl (32.0-35.9); MEAN CELL VOLUME 86.6 fl (80-96); MEAN PLT VOLUME 8.5 fl (7.5-11.1); PLATELET COUNT 327 10^3/uL (134-434); RBC 4.18 M/mm3 (4.00-5.60); RDW 14.1 % (11.9-15.9); WHITE BLOOD COUNT 8.1 K/mm3 (4.0-10.0)
[2021-08-02] MEDS ORDERED: PT OWN MED DRAWER 7, Y5N ONE (22:59)
[2021-08-03] MEDS: dilTIAZem HCL 60 MG TABLET NR SCH ×4 (05:27→23:02)
[2021-08-03] MEDS: ZINC SULFATE 220 MG CAPSULE (FP) GT SCH (10:33)
[2021-08-03] MEDS: LORazepam 0.5 MG TABLET GT PRN ×2 (10:33→22:51)
[2021-08-03] MEDS: AMINO ACIDS/PROTEIN HYDROLYS 30 ML LIQUID.PKT GT SCH (10:33)
[2021-08-03] MEDS: ASCORBIC ACID 250 MG TABLET (FP) GT SCH ×2 (10:34→23:02)
[2021-08-03] MEDS: ZINC OXIDE 20% TOPICAL OINTMENT 30 GM TUBE TP SCH ×2 (10:34→23:02)
[2021-08-03] MEDS: APIXABAN 5 MG TABLET GT SCH ×2 (10:34→22:51)
[2021-08-03] MEDS: oxyCODONE HCL 5 MG TABLET GT PRN (10:37)
[2021-08-03] MEDS: NYSTATIN 100000 UNIT/GM TOPICAL OINTMENT 15 GM TUBE TP SCH ×2 (10:38→23:02)
[2021-08-03] MEDS: COLLAGENASE CLOSTRIDIUM HIST. 30 GRAMS TUBE TP SCH (10:38)
[2021-08-03] MEDS: BACITRACIN/POLYMYXIN B SULFATE 15 GM TUBE TP SCH (10:38)
[2021-08-03] MEDS: cloNIDine-TTS 0.3 MG /24 HRS PATCH.TDWK TD SCH (10:38)
[2021-08-03] MEDS: FAMOTIDINE 40 MG/5 ML ORAL SUSPENSION PEG SCH (10:38)
[2021-08-03] MEDS: fentaNYL 25mcg/hr PATCH.TD72 TD SCH (15:19)
[2021-08-03] MEDS: SCOPOLAMINE HYDROBROMIDE 1 PATCH PATCH.TD72 TD SCH (15:20)
[2021-08-03] MEDS: FENTANYL PATCH WASTE TD PRN (15:36)
[2021-08-03] MEDS ORDERED: PT OWN MED DRAWER 7, Y5N ONE (22:39)
[2021-08-03] MEDS: ACETAMINOPHEN 650 MG/20.3 ML ORAL SOLUTION (CUPS) GT PRN (22:51)
[2021-08-04] MEDS: oxyCODONE HCL 5 MG TABLET GT PRN ×4 (00:21→23:17)
[2021-08-04] MEDS: dilTIAZem HCL 60 MG TABLET NR SCH ×4 (05:44→23:08)
[2021-08-04] MEDS: ZINC SULFATE 220 MG CAPSULE (FP) GT SCH (09:40)
[2021-08-04] MEDS: APIXABAN 5 MG TABLET GT SCH ×2 (09:40→22:09)
[2021-08-04] MEDS: AMINO ACIDS/PROTEIN HYDROLYS 30 ML LIQUID.PKT GT SCH (09:40)
[2021-08-04] MEDS: LORazepam 0.5 MG TABLET GT PRN ×2 (09:40→22:09)
[2021-08-04] MEDS: ASCORBIC ACID 250 MG TABLET (FP) GT SCH ×2 (09:40→22:11)
[2021-08-04] MEDS: ACETAMINOPHEN 650 MG/20.3 ML ORAL SOLUTION (CUPS) GT PRN ×2 (09:40→17:16)
[2021-08-04] MEDS: NYSTATIN 100000 UNIT/GM TOPICAL OINTMENT 15 GM TUBE TP SCH ×2 (09:41→23:07)
[2021-08-04] MEDS: ZINC OXIDE 20% TOPICAL OINTMENT 30 GM TUBE TP SCH ×2 (09:41→22:10)
[2021-08-04] MEDS: FAMOTIDINE 40 MG/5 ML ORAL SUSPENSION PEG SCH (09:41)
[2021-08-04] MEDS: BACITRACIN/POLYMYXIN B SULFATE 15 GM TUBE TP SCH (09:41)
[2021-08-04] MEDS: COLLAGENASE CLOSTRIDIUM HIST. 30 GRAMS TUBE TP SCH (09:41)
[2021-08-05] MEDS: dilTIAZem HCL 60 MG TABLET NR SCH ×4 (06:13→23:01)
[2021-08-05 07:12] LABS: BASO % 0.2 % (0-2.0); EOS % 0.6 % (0-4.5); HEMOGLOBIN 13.7 GM/dL (11.7-16.9); LYMPH % 14.2 % (8-40); MCH 28.8 pg (25.7-33.7); MCHC 33.4 g/dl (32.0-35.9); MEAN CELL VOLUME 86.1 fl (80-96); MEAN PLT VOLUME 8.3 fl (7.5-11.1); MONO % 9.1 % (3.8-10.2); NEUT % 75.9 % (42.8-82.8); PLATELET COUNT 358 10^3/uL (134-434); RBC 4.76 M/mm3 (4.00-5.60); RDW 14.4 % (11.9-15.9); WHITE BLOOD COUNT 8.8 K/mm3 (4.0-10.0)
[2021-08-05 07:30] LABS: CALCIUM 9.6 mg/dL (8.5-10.1)
[2021-08-05 07:31] LABS: ALBUMIN 3.8 g/dl (3.4-5.0); BLOOD UREA NITROGEN 12.2 mg/dL (7-18)
[2021-08-05 07:34] LABS: CREATININE 0.5 mg/dL (0.55-1.3)
[2021-08-05 07:35] LABS: TOT PROT 7.4 g/dl (6.4-8.2)
[2021-08-05 07:36] LABS: BILIRUBIN,TOTAL 0.6 mg/dL (0.2-1)
[2021-08-05] MEDS ORDERED: PT OWN MED DRAWER 7, Y5N ONE ×2 (09:43→22:33)
[2021-08-05] MEDS: ASCORBIC ACID 250 MG TABLET (FP) GT SCH ×2 (10:08→22:53)
[2021-08-05] MEDS: LORazepam 0.5 MG TABLET GT PRN ×2 (10:08→22:51)
[2021-08-05] MEDS: AMINO ACIDS/PROTEIN HYDROLYS 30 ML LIQUID.PKT GT SCH (10:08)
[2021-08-05] MEDS: ZINC SULFATE 220 MG CAPSULE (FP) GT SCH (10:08)
[2021-08-05] MEDS: APIXABAN 5 MG TABLET GT SCH ×2 (10:08→22:53)
[2021-08-05] MEDS: NYSTATIN 100000 UNIT/GM TOPICAL OINTMENT 15 GM TUBE TP SCH ×2 (10:09→22:54)
[2021-08-05] MEDS: BACITRACIN/POLYMYXIN B SULFATE 15 GM TUBE TP SCH (10:09)
[2021-08-05] MEDS: FAMOTIDINE 40 MG/5 ML ORAL SUSPENSION PEG SCH (10:09)
[2021-08-05] MEDS: COLLAGENASE CLOSTRIDIUM HIST. 30 GRAMS TUBE TP SCH (10:10)
[2021-08-05] MEDS: ZINC OXIDE 20% TOPICAL OINTMENT 30 GM TUBE TP SCH ×2 (10:10→22:54)
[2021-08-05] MEDS: ACETAMINOPHEN 650 MG/20.3 ML ORAL SOLUTION (CUPS) GT PRN (22:47)
[2021-08-05] MEDS: oxyCODONE HCL 5 MG TABLET GT PRN (22:49)
[2021-08-06] MEDS: dilTIAZem HCL 60 MG TABLET NR SCH ×4 (05:18→23:00)
[2021-08-06] MEDS ORDERED: PT OWN MED DRAWER 7, Y5N ONE (09:48)
[2021-08-06] MEDS: oxyCODONE HCL 5 MG TABLET GT PRN (10:14)
[2021-08-06] MEDS: AMINO ACIDS/PROTEIN HYDROLYS 30 ML LIQUID.PKT GT SCH (10:14)
[2021-08-06] MEDS: ZINC SULFATE 220 MG CAPSULE (FP) GT SCH (10:14)
[2021-08-06] MEDS: FAMOTIDINE 40 MG/5 ML ORAL SUSPENSION PEG SCH (10:15)
[2021-08-06] MEDS: ASCORBIC ACID 250 MG TABLET (FP) GT SCH ×2 (10:15→23:34)
[2021-08-06] MEDS: APIXABAN 5 MG TABLET GT SCH ×2 (10:15→22:59)
[2021-08-06] MEDS: BACITRACIN/POLYMYXIN B SULFATE 15 GM TUBE TP SCH (10:16)
[2021-08-06] MEDS: ZINC OXIDE 20% TOPICAL OINTMENT 30 GM TUBE TP SCH ×2 (10:16→22:59)
[2021-08-06] MEDS: COLLAGENASE CLOSTRIDIUM HIST. 30 GRAMS TUBE TP SCH (10:16)
[2021-08-06] MEDS: NYSTATIN 100000 UNIT/GM TOPICAL OINTMENT 15 GM TUBE TP SCH ×2 (10:16→22:59)
[2021-08-06] MEDS: fentaNYL 25mcg/hr PATCH.TD72 TD SCH (13:11)
[2021-08-06] MEDS: SCOPOLAMINE HYDROBROMIDE 1 PATCH PATCH.TD72 TD SCH (13:19)
[2021-08-06] MEDS: FENTANYL PATCH WASTE MC PRN (13:25)
[2021-08-06] MEDS ORDERED: LORazepam 2 MG TABLET PO PRN (16:31)
[2021-08-06] MEDS: LORazepam 0.5 MG TABLET PO PRN (22:59)
[2021-08-07] MEDS: oxyCODONE HCL 5 MG TABLET GT PRN (06:00)
[2021-08-07] MEDS: dilTIAZem HCL 60 MG TABLET NR SCH ×4 (06:00→23:51)
[2021-08-07] MEDS: APIXABAN 5 MG TABLET GT SCH ×2 (10:31→23:11)
[2021-08-07] MEDS: MULTIVITAMINS (DAILY MVI) TABLET (FP) PO SCH (10:31)
[2021-08-07] MEDS: ZINC SULFATE 220 MG CAPSULE (FP) GT SCH (10:31)
[2021-08-07] MEDS: FAMOTIDINE 40 MG/5 ML ORAL SUSPENSION PEG SCH (10:31)
[2021-08-07] MEDS: BACITRACIN/POLYMYXIN B SULFATE 15 GM TUBE TP SCH (10:32)
[2021-08-07] MEDS: NYSTATIN 100000 UNIT/GM TOPICAL OINTMENT 15 GM TUBE TP SCH ×2 (10:32→23:11)
[2021-08-07] MEDS: COLLAGENASE CLOSTRIDIUM HIST. 30 GRAMS TUBE TP SCH (10:32)
[2021-08-07] MEDS: AMINO ACIDS/PROTEIN HYDROLYS 30 ML LIQUID.PKT GT SCH (10:34)
[2021-08-07] MEDS: ZINC OXIDE 20% TOPICAL OINTMENT 30 GM TUBE TP SCH ×2 (10:34→23:11)
[2021-08-07] MEDS: ASCORBIC ACID 250 MG TABLET (FP) GT SCH ×2 (10:34→23:10)
[2021-08-07] MEDS: LORazepam 0.5 MG TABLET PO PRN (23:11)
[2021-08-08] MEDS: oxyCODONE HCL 5 MG TABLET GT PRN ×3 (03:56→23:35)
[2021-08-08] MEDS: dilTIAZem HCL 60 MG TABLET NR SCH ×4 (05:14→23:39)
[2021-08-08] MEDS: AMINO ACIDS/PROTEIN HYDROLYS 30 ML LIQUID.PKT GT SCH (09:58)
[2021-08-08] MEDS: APIXABAN 5 MG TABLET GT SCH ×2 (09:59→23:00)
[2021-08-08] MEDS: ZINC SULFATE 220 MG CAPSULE (FP) GT SCH (09:59)
[2021-08-08] MEDS: ACETAMINOPHEN 650 MG/20.3 ML ORAL SOLUTION (CUPS) GT PRN (09:59)
[2021-08-08] MEDS: MULTIVITAMINS (DAILY MVI) TABLET (FP) PO SCH (09:59)
[2021-08-08] MEDS: LORazepam 0.5 MG TABLET PO PRN ×2 (09:59→23:36)
[2021-08-08] MEDS: ZINC OXIDE 20% TOPICAL OINTMENT 30 GM TUBE TP SCH ×2 (10:00→23:37)
[2021-08-08] MEDS: COLLAGENASE CLOSTRIDIUM HIST. 30 GRAMS TUBE TP SCH (10:00)
[2021-08-08] MEDS: ASCORBIC ACID 250 MG TABLET (FP) GT SCH ×2 (10:01→23:00)
[2021-08-08] MEDS: BACITRACIN/POLYMYXIN B SULFATE 15 GM TUBE TP SCH (10:01)
[2021-08-08] MEDS: FAMOTIDINE 40 MG/5 ML ORAL SUSPENSION PEG SCH (10:01)
[2021-08-08] MEDS: NYSTATIN 100000 UNIT/GM TOPICAL OINTMENT 15 GM TUBE TP SCH ×2 (10:01→23:37)
[2021-08-09] MEDS: oxyCODONE HCL 5 MG TABLET GT PRN (05:22)
[2021-08-09] MEDS: dilTIAZem HCL 60 MG TABLET NR SCH ×3 (05:23→17:04)
[2021-08-09] MEDS: NYSTATIN 100000 UNIT/GM TOPICAL OINTMENT 15 GM TUBE TP SCH ×2 (13:13→22:51)
[2021-08-09] MEDS: ZINC SULFATE 220 MG CAPSULE (FP) GT SCH (13:13)
[2021-08-09] MEDS: APIXABAN 5 MG TABLET GT SCH ×2 (13:13→22:51)
[2021-08-09] MEDS: MULTIVITAMINS (DAILY MVI) TABLET (FP) PO SCH (13:14)
[2021-08-09] MEDS: BACITRACIN/POLYMYXIN B SULFATE 15 GM TUBE TP SCH (13:14)
[2021-08-09] MEDS: FAMOTIDINE 40 MG/5 ML ORAL SUSPENSION PEG SCH (13:14)
[2021-08-09] MEDS: AMINO ACIDS/PROTEIN HYDROLYS 30 ML LIQUID.PKT GT SCH (13:14)
[2021-08-09] MEDS: COLLAGENASE CLOSTRIDIUM HIST. 30 GRAMS TUBE TP SCH (13:15)
[2021-08-09] MEDS: ZINC OXIDE 20% TOPICAL OINTMENT 30 GM TUBE TP SCH ×2 (13:17→22:54)
[2021-08-09] MEDS: ASCORBIC ACID 250 MG TABLET (FP) GT SCH ×2 (13:17→22:55)
[2021-08-09] MEDS: fentaNYL 25mcg/hr PATCH.TD72 TD SCH (13:18)
[2021-08-09] MEDS: SCOPOLAMINE HYDROBROMIDE 1 PATCH PATCH.TD72 TD SCH (13:19)
[2021-08-09] MEDS: FENTANYL PATCH WASTE MC PRN (16:07)
[2021-08-09] MEDS ORDERED: PT OWN MED DRAWER 7, Y5N ONE (22:55)
[2021-08-10] MEDS: dilTIAZem HCL 60 MG TABLET NR SCH ×4 (02:08→17:00)
[2021-08-10] MEDS: APIXABAN 5 MG TABLET GT SCH ×2 (10:09→23:00)
[2021-08-10] MEDS: ZINC SULFATE 220 MG CAPSULE (FP) GT SCH (10:09)
[2021-08-10] MEDS: AMINO ACIDS/PROTEIN HYDROLYS 30 ML LIQUID.PKT GT SCH (10:09)
[2021-08-10] MEDS: LORazepam 0.5 MG TABLET PO PRN ×2 (10:10→23:00)
[2021-08-10] MEDS: MULTIVITAMINS (DAILY MVI) TABLET (FP) PO SCH (10:10)
[2021-08-10] MEDS: ASCORBIC ACID 250 MG TABLET (FP) GT SCH ×2 (10:10→23:00)
[2021-08-10] MEDS: FAMOTIDINE 40 MG/5 ML ORAL SUSPENSION PEG SCH (10:10)
[2021-08-10] MEDS: NYSTATIN 100000 UNIT/GM TOPICAL OINTMENT 15 GM TUBE TP SCH ×2 (10:11→23:00)
[2021-08-10] MEDS: BACITRACIN/POLYMYXIN B SULFATE 15 GM TUBE TP SCH (10:12)
[2021-08-10] MEDS: COLLAGENASE CLOSTRIDIUM HIST. 30 GRAMS TUBE TP SCH (10:13)
[2021-08-10] MEDS: cloNIDine-TTS 0.3 MG /24 HRS PATCH.TDWK TD SCH (10:14)
[2021-08-10] MEDS: ZINC OXIDE 20% TOPICAL OINTMENT 30 GM TUBE TP SCH ×2 (10:18→23:05)
[2021-08-10] MEDS: oxyCODONE HCL 5 MG TABLET GT PRN ×2 (15:15→23:03)
[2021-08-11] MEDS: dilTIAZem HCL 60 MG TABLET NR SCH ×5 (05:25→23:54)
[2021-08-11] MEDS: oxyCODONE HCL 5 MG TABLET GT PRN ×2 (05:25→22:44)
[2021-08-11] MEDS: LORazepam 0.5 MG TABLET PO PRN ×3 (05:26→22:45)
[2021-08-11] MEDS: APIXABAN 5 MG TABLET GT SCH ×2 (10:09→22:44)
[2021-08-11] MEDS: AMINO ACIDS/PROTEIN HYDROLYS 30 ML LIQUID.PKT GT SCH (10:09)
[2021-08-11] MEDS: BACITRACIN/POLYMYXIN B SULFATE 15 GM TUBE TP SCH (10:10)
[2021-08-11] MEDS: COLLAGENASE CLOSTRIDIUM HIST. 30 GRAMS TUBE TP SCH (10:10)
[2021-08-11] MEDS: NYSTATIN 100000 UNIT/GM TOPICAL OINTMENT 15 GM TUBE TP SCH ×2 (10:10→22:47)
[2021-08-11] MEDS: FAMOTIDINE 40 MG/5 ML ORAL SUSPENSION PEG SCH (10:10)
[2021-08-11] MEDS: ZINC OXIDE 20% TOPICAL OINTMENT 30 GM TUBE TP SCH ×2 (10:11→22:46)
[2021-08-11] MEDS: ASCORBIC ACID 250 MG TABLET (FP) GT SCH ×2 (10:11→22:45)
[2021-08-11] MEDS: MULTIVITAMINS (DAILY MVI) TABLET (FP) PO SCH (10:11)
[2021-08-11] MEDS: ZINC SULFATE 220 MG CAPSULE (FP) GT SCH (10:12)
[2021-08-11] MEDS: ACETAMINOPHEN 650 MG/20.3 ML ORAL SOLUTION (CUPS) GT PRN (23:16)
[2021-08-12 01:58] LABS: BASO % 0.2 % (0-2.0); EOS % 0.1 % (0-4.5); HEMATOCRIT 38.4 % (35.4-49); HEMOGLOBIN 12.3 GM/dL (11.7-16.9); LYMPH % 5.3 % (8-40); MCH 27.7 pg (25.7-33.7); MEAN CELL VOLUME 86.4 fl (80-96); MEAN PLT VOLUME 8.9 fl (7.5-11.1); NEUT % 82.4 % (42.8-82.8); PLATELET COUNT 320 10^3/uL (134-434); RBC 4.44 M/mm3 (4.00-5.60); RDW 14.2 % (11.9-15.9); WHITE BLOOD COUNT 11.1 K/mm3 (4.0-10.0)
[2021-08-12 02:18] LABS: CALCIUM 9.2 mg/dL (8.5-10.1)
[2021-08-12 02:19] LABS: ALBUMIN 3.3 g/dl (3.4-5.0)
[2021-08-12 02:22] LABS: CREATININE 0.6 mg/dL (0.55-1.3)
[2021-08-12 02:25] LABS: BILIRUBIN,TOTAL 0.6 mg/dL (0.2-1); TOT PROT 7.6 g/dl (6.4-8.2)
[2021-08-12] MEDS: oxyCODONE HCL 5 MG TABLET GT PRN ×2 (04:44→19:54)
[2021-08-12] MEDS: dilTIAZem HCL 60 MG TABLET NR SCH ×4 (06:19→23:48)
[2021-08-12] MEDS ORDERED: IBUPROFEN 800 MG/8 ML IJ IVPB ONE ×2 (10:03→22:59)
[2021-08-12] MEDS: ASCORBIC ACID 250 MG TABLET (FP) GT SCH ×2 (11:04→22:23)
[2021-08-12] MEDS: MULTIVITAMINS (DAILY MVI) TABLET (FP) PO SCH (11:04)
[2021-08-12] MEDS: AMINO ACIDS/PROTEIN HYDROLYS 30 ML LIQUID.PKT GT SCH (11:04)
[2021-08-12] MEDS: FAMOTIDINE 40 MG/5 ML ORAL SUSPENSION PEG SCH (11:05)
[2021-08-12] MEDS: APIXABAN 5 MG TABLET GT SCH ×2 (11:05→22:23)
[2021-08-12] MEDS: ZINC SULFATE 220 MG CAPSULE (FP) GT SCH (11:05)
[2021-08-12] MEDS: COLLAGENASE CLOSTRIDIUM HIST. 30 GRAMS TUBE TP SCH (11:09)
[2021-08-12 11:10] LABS: HEMOGLOBIN 12.3 GM/dL (11.7-16.9); MCH 27.8 pg (25.7-33.7); MCHC 32.3 g/dl (32.0-35.9); MEAN CELL VOLUME 86.2 fl (80-96); PLATELET COUNT 305 10^3/uL (134-434); RDW 14.6 % (11.9-15.9); WHITE BLOOD COUNT 9.5 K/mm3 (4.0-10.0)
[2021-08-12] MEDS: BACITRACIN/POLYMYXIN B SULFATE 15 GM TUBE TP SCH (11:10)
[2021-08-12] MEDS: NYSTATIN 100000 UNIT/GM TOPICAL OINTMENT 15 GM TUBE TP SCH ×2 (11:10→22:23)
[2021-08-12] MEDS: ZINC OXIDE 20% TOPICAL OINTMENT 30 GM TUBE TP SCH ×2 (11:11→22:23)
[2021-08-12 11:23] LABS: EPI CELLS 2 /uL (0-25.1); HYALINE CASTS 1 /uL (0-3.1); PH,URINE 5.5 (5.0-8.0); URINE APPEARANCE CLOUDY; URINE BACTERIA >9,000 /uL (0-1359); URINE BILIRUBIN NEGATIVE (NEGATIVE); URINE COLOR DK YELLOW; URINE GLUCOSE (UA) NEGATIVE (NEGATIVE); URINE KETONE NEGATIVE (NEGATIVE); URINE LEUK ESTERASE 2+ (NEGATIVE); URINE NITRITE NEGATIVE (NEGATIVE); URINE PROTEIN 1+ (NEGATIVE); URINE RBC 20 /uL (0-23.9); URINE WBC 215 /uL (0-25.8)
[2021-08-12 11:27] LABS: CALCIUM 8.9 mg/dL (8.5-10.1)
[2021-08-12 11:28] LABS: BLOOD UREA NITROGEN 13.3 mg/dL (7-18)
[2021-08-12 11:31] LABS: CREATININE 0.6 mg/dL (0.55-1.3)
[2021-08-12 11:32] LABS: BILIRUBIN,TOTAL 0.5 mg/dL (0.2-1); TOT PROT 6.9 g/dl (6.4-8.2)
[2021-08-12] MEDS ORDERED: CEFEPIME HCL 1 GM VIAL (RESTRICTED TO ID) ONE ×2 (13:50→16:33)
[2021-08-12] MEDS ORDERED: DEXTROSE 5%-WATER 100 ML IVPB ONE ×2 (13:50→16:33)
[2021-08-12] MEDS: SCOPOLAMINE HYDROBROMIDE 1 PATCH PATCH.TD72 TD SCH (13:53)
[2021-08-12] MEDS: CEFEPIME 1 GM in DEXTROSE 5%-WATER 1 GM/100 ML BAG IVPB SCH ×2 (13:53→18:13)
[2021-08-12] MEDS ORDERED: fentaNYL 25mcg/hr PATCH.TD72 TD SCH (21:00)
[2021-08-12] MEDS ORDERED: PT OWN MED DRAWER 7, Y5N ONE (22:16)
[2021-08-12] MEDS: FENTANYL PATCH WASTE TD PRN (22:40)
[2021-08-13] MEDS ORDERED: CEFEPIME HCL 1 GM VIAL (RESTRICTED TO ID) ONE ×3 (01:08→14:36)
[2021-08-13] MEDS ORDERED: DEXTROSE 5%-WATER 100 ML IVPB ONE ×3 (01:08→14:36)
[2021-08-13] MEDS: CEFEPIME 1 GM in DEXTROSE 5%-WATER 1 GM/100 ML BAG IVPB SCH ×3 (01:12→17:14)
[2021-08-13] MEDS: oxyCODONE HCL 5 MG TABLET GT PRN ×3 (01:58→22:19)
[2021-08-13] MEDS: dilTIAZem HCL 60 MG TABLET NR SCH ×3 (05:14→17:15)
[2021-08-13] MEDS: ASCORBIC ACID 250 MG TABLET (FP) GT SCH ×2 (09:41→22:19)
[2021-08-13] MEDS: MULTIVITAMINS (DAILY MVI) TABLET (FP) PO SCH (09:41)
[2021-08-13] MEDS: APIXABAN 5 MG TABLET GT SCH ×2 (09:41→22:19)
[2021-08-13] MEDS: AMINO ACIDS/PROTEIN HYDROLYS 30 ML LIQUID.PKT GT SCH (09:41)
[2021-08-13] MEDS: ZINC SULFATE 220 MG CAPSULE (FP) GT SCH (09:41)
[2021-08-13] MEDS: FAMOTIDINE 40 MG/5 ML ORAL SUSPENSION PEG SCH (09:41)
[2021-08-13] MEDS: NYSTATIN 100000 UNIT/GM TOPICAL OINTMENT 15 GM TUBE TP SCH ×2 (09:43→22:34)
[2021-08-13] MEDS: ZINC OXIDE 20% TOPICAL OINTMENT 30 GM TUBE TP SCH ×2 (09:43→22:34)
[2021-08-13] MEDS: BACITRACIN/POLYMYXIN B SULFATE 15 GM TUBE TP SCH (09:44)
[2021-08-13] MEDS: COLLAGENASE CLOSTRIDIUM HIST. 30 GRAMS TUBE TP SCH (09:44)
[2021-08-13] MEDS: LORazepam 0.5 MG TABLET PO PRN (14:57)
[2021-08-13] MEDS ORDERED: PT OWN MED DRAWER 7, Y5N ONE (22:09)
[2021-08-14] MEDS: dilTIAZem HCL 60 MG TABLET NR SCH ×5 (00:55→23:57)
[2021-08-14] MEDS ORDERED: CEFEPIME HCL 1 GM VIAL (RESTRICTED TO ID) ONE ×2 (01:48→10:13)
[2021-08-14] MEDS ORDERED: DEXTROSE 5%-WATER 100 ML IVPB ONE ×2 (01:48→10:13)
[2021-08-14] MEDS: CEFEPIME 1 GM in DEXTROSE 5%-WATER 1 GM/100 ML BAG IVPB SCH ×2 (02:18→10:51)
[2021-08-14] MEDS: oxyCODONE HCL 5 MG TABLET GT PRN (06:39)
[2021-08-14] MEDS ORDERED: PT OWN MED DRAWER 7, Y5N ONE ×2 (10:13→23:55)
[2021-08-14] MEDS: ASCORBIC ACID 250 MG TABLET (FP) GT SCH ×2 (10:51→23:57)
[2021-08-14] MEDS: FAMOTIDINE 40 MG/5 ML ORAL SUSPENSION PEG SCH (10:51)
[2021-08-14] MEDS: APIXABAN 5 MG TABLET GT SCH ×2 (10:51→23:57)
[2021-08-14] MEDS: MULTIVITAMINS (DAILY MVI) TABLET (FP) PO SCH (10:52)
[2021-08-14] MEDS: ZINC SULFATE 220 MG CAPSULE (FP) GT SCH (10:52)
[2021-08-14] MEDS: AMINO ACIDS/PROTEIN HYDROLYS 30 ML LIQUID.PKT GT SCH (10:52)
[2021-08-14] MEDS: COLLAGENASE CLOSTRIDIUM HIST. 30 GRAMS TUBE TP SCH (10:53)
[2021-08-14] MEDS: NYSTATIN 100000 UNIT/GM TOPICAL OINTMENT 15 GM TUBE TP SCH ×2 (10:53→23:59)
[2021-08-14] MEDS: ZINC OXIDE 20% TOPICAL OINTMENT 30 GM TUBE TP SCH ×2 (10:53→23:58)
[2021-08-14] MEDS: BACITRACIN/POLYMYXIN B SULFATE 15 GM TUBE TP SCH (10:53)
[2021-08-14] MEDS ORDERED: cefTRIAXone SODIUM 1 GM VIAL ONE (16:42)
[2021-08-14] MEDS ORDERED: DEXTROSE 5%-WATER - 50 ML IVPB ONE (16:42)
[2021-08-14] MEDS: CEFTRIAXONE 1 GM in DEXTROSE 5%-WATER - 50 ML IVPB SCH (17:43)
[2021-08-14] MEDS: LORazepam 0.5 MG TABLET PO PRN (18:41)
[2021-08-15] MEDS: oxyCODONE HCL 5 MG TABLET GT PRN ×2 (00:05→09:28)
[2021-08-15] MEDS: dilTIAZem HCL 60 MG TABLET NR SCH ×4 (05:44→23:21)
[2021-08-15] MEDS ORDERED: DEXTROSE 5%-WATER - 50 ML IVPB ONE (09:13)
[2021-08-15] MEDS ORDERED: cefTRIAXone SODIUM 1 GM VIAL ONE (09:13)
[2021-08-15] MEDS: CEFTRIAXONE 1 GM in DEXTROSE 5%-WATER - 50 ML IVPB SCH (09:28)
[2021-08-15] MEDS: MULTIVITAMINS (DAILY MVI) TABLET (FP) PO SCH (09:28)
[2021-08-15] MEDS: ASCORBIC ACID 250 MG TABLET (FP) GT SCH ×2 (09:28→23:21)
[2021-08-15] MEDS: APIXABAN 5 MG TABLET GT SCH ×2 (09:28→23:21)
[2021-08-15] MEDS: ZINC SULFATE 220 MG CAPSULE (FP) GT SCH (09:28)
[2021-08-15] MEDS: LORazepam 0.5 MG TABLET PO PRN ×2 (09:28→23:21)
[2021-08-15] MEDS: BACITRACIN/POLYMYXIN B SULFATE 15 GM TUBE TP SCH (09:29)
[2021-08-15] MEDS: FAMOTIDINE 40 MG/5 ML ORAL SUSPENSION PEG SCH (09:29)
[2021-08-15] MEDS: NYSTATIN 100000 UNIT/GM TOPICAL OINTMENT 15 GM TUBE TP SCH ×2 (09:29→23:21)
[2021-08-15] MEDS: AMINO ACIDS/PROTEIN HYDROLYS 30 ML LIQUID.PKT GT SCH (09:29)
[2021-08-15] MEDS: COLLAGENASE CLOSTRIDIUM HIST. 30 GRAMS TUBE TP SCH (09:29)
[2021-08-15] MEDS: ZINC OXIDE 20% TOPICAL OINTMENT 30 GM TUBE TP SCH ×2 (09:29→23:21)
[2021-08-15] MEDS: SCOPOLAMINE HYDROBROMIDE 1 PATCH PATCH.TD72 TD SCH (14:10)
[2021-08-15] MEDS ORDERED: PT OWN MED DRAWER 7, Y5N ONE (23:19)
[2021-08-16] MEDS: oxyCODONE HCL 5 MG TABLET GT PRN ×2 (03:46→23:40)
[2021-08-16] MEDS: dilTIAZem HCL 60 MG TABLET NR SCH ×4 (05:30→23:39)
[2021-08-16] MEDS ORDERED: cefTRIAXone SODIUM 1 GM VIAL ONE (10:13)
[2021-08-16] MEDS ORDERED: DEXTROSE 5%-WATER - 50 ML IVPB ONE (10:13)
[2021-08-16] MEDS: CEFTRIAXONE 1 GM in DEXTROSE 5%-WATER - 50 ML IVPB SCH (11:31)
[2021-08-16] MEDS: NYSTATIN 100000 UNIT/GM TOPICAL OINTMENT 15 GM TUBE TP SCH ×2 (11:32→23:43)
[2021-08-16] MEDS: APIXABAN 5 MG TABLET GT SCH ×2 (11:32→23:41)
[2021-08-16] MEDS: ZINC SULFATE 220 MG CAPSULE (FP) GT SCH (11:32)
[2021-08-16] MEDS: AMINO ACIDS/PROTEIN HYDROLYS 30 ML LIQUID.PKT GT SCH (11:32)
[2021-08-16] MEDS: COLLAGENASE CLOSTRIDIUM HIST. 30 GRAMS TUBE TP SCH (11:33)
[2021-08-16] MEDS: MULTIVITAMINS (DAILY MVI) TABLET (FP) PO SCH (11:33)
[2021-08-16] MEDS: ASCORBIC ACID 250 MG TABLET (FP) GT SCH ×2 (11:33→23:43)
[2021-08-16] MEDS: BACITRACIN/POLYMYXIN B SULFATE 15 GM TUBE TP SCH (11:34)
[2021-08-16] MEDS: ZINC OXIDE 20% TOPICAL OINTMENT 30 GM TUBE TP SCH ×2 (11:34→23:42)
[2021-08-16] MEDS: FAMOTIDINE 40 MG/5 ML ORAL SUSPENSION PEG SCH (11:34)
[2021-08-16] MEDS: LORazepam 0.5 MG TABLET PO PRN ×2 (13:29→23:39)
[2021-08-17] MEDS: dilTIAZem HCL 60 MG TABLET NR SCH ×3 (05:07→19:20)
[2021-08-17] MEDS ORDERED: cefTRIAXone SODIUM 1 GM VIAL ONE (10:00)
[2021-08-17] MEDS ORDERED: DEXTROSE 5%-WATER - 50 ML IVPB ONE (10:00)
[2021-08-17] MEDS: AMINO ACIDS/PROTEIN HYDROLYS 30 ML LIQUID.PKT GT SCH (10:11)
[2021-08-17] MEDS: CEFTRIAXONE 1 GM in DEXTROSE 5%-WATER - 50 ML IVPB SCH (10:11)
[2021-08-17] MEDS: MULTIVITAMINS (DAILY MVI) TABLET (FP) PO SCH (10:12)
[2021-08-17] MEDS: ASCORBIC ACID 250 MG TABLET (FP) GT SCH ×2 (10:12→23:00)
[2021-08-17] MEDS: ZINC SULFATE 220 MG CAPSULE (FP) GT SCH (10:12)
[2021-08-17] MEDS: APIXABAN 5 MG TABLET GT SCH (10:12)
[2021-08-17] MEDS: BACITRACIN/POLYMYXIN B SULFATE 15 GM TUBE TP SCH (10:13)
[2021-08-17] MEDS: FAMOTIDINE 40 MG/5 ML ORAL SUSPENSION PEG SCH (10:13)
[2021-08-17] MEDS: NYSTATIN 100000 UNIT/GM TOPICAL OINTMENT 15 GM TUBE TP SCH (10:13)
[2021-08-17] MEDS: ZINC OXIDE 20% TOPICAL OINTMENT 30 GM TUBE TP SCH (10:14)
[2021-08-17] MEDS: COLLAGENASE CLOSTRIDIUM HIST. 30 GRAMS TUBE TP SCH (10:14)
[2021-08-17] MEDS: cloNIDine-TTS 0.3 MG /24 HRS PATCH.TDWK TD SCH (10:15)
[2021-08-18] MEDS: dilTIAZem HCL 60 MG TABLET NR SCH ×5 (00:13→23:47)
[2021-08-18] MEDS: NYSTATIN 100000 UNIT/GM TOPICAL OINTMENT 15 GM TUBE TP SCH ×3 (00:14→23:52)
[2021-08-18] MEDS: ZINC OXIDE 20% TOPICAL OINTMENT 30 GM TUBE TP SCH ×3 (00:14→23:52)
[2021-08-18] MEDS: oxyCODONE HCL 5 MG TABLET PO PRN ×3 (01:10→23:48)
[2021-08-18] MEDS: LORazepam 0.5 MG TABLET PO PRN ×3 (01:10→23:48)
[2021-08-18] MEDS ORDERED: cefTRIAXone SODIUM 1 GM VIAL ONE (10:43)
[2021-08-18] MEDS ORDERED: DEXTROSE 5%-WATER - 50 ML IVPB ONE (10:44)
[2021-08-18] MEDS: CEFTRIAXONE 1 GM in DEXTROSE 5%-WATER - 50 ML IVPB SCH (12:20)
[2021-08-18] MEDS: AMINO ACIDS/PROTEIN HYDROLYS 30 ML LIQUID.PKT GT SCH (12:20)
[2021-08-18] MEDS: ZINC SULFATE 220 MG CAPSULE (FP) GT SCH (12:21)
[2021-08-18] MEDS: ASCORBIC ACID 250 MG TABLET (FP) GT SCH ×2 (12:22→23:00)
[2021-08-18] MEDS: APIXABAN 5 MG TABLET GT SCH ×3 (12:22→23:00)
[2021-08-18] MEDS: FAMOTIDINE 40 MG/5 ML ORAL SUSPENSION PEG SCH (12:22)
[2021-08-18] MEDS: MULTIVITAMINS (DAILY MVI) TABLET (FP) PO SCH (12:23)
[2021-08-18] MEDS: COLLAGENASE CLOSTRIDIUM HIST. 30 GRAMS TUBE TP SCH (12:24)
[2021-08-18] MEDS: BACITRACIN/POLYMYXIN B SULFATE 15 GM TUBE TP SCH (12:25)
[2021-08-18] MEDS: SCOPOLAMINE HYDROBROMIDE 1 PATCH PATCH.TD72 TD SCH (14:26)
[2021-08-19] MEDS: dilTIAZem HCL 60 MG TABLET NR SCH ×3 (05:24→18:11)
[2021-08-19] MEDS: oxyCODONE HCL 5 MG TABLET PO PRN (05:27)
[2021-08-19] MEDS ORDERED: cefTRIAXone SODIUM 1 GM VIAL ONE (08:45)
[2021-08-19] MEDS ORDERED: DEXTROSE 5%-WATER - 50 ML IVPB ONE (08:45)
[2021-08-19] MEDS: CEFTRIAXONE 1 GM in DEXTROSE 5%-WATER - 50 ML IVPB SCH (09:04)
[2021-08-19] MEDS: AMINO ACIDS/PROTEIN HYDROLYS 30 ML LIQUID.PKT GT SCH (09:04)
[2021-08-19] MEDS: MULTIVITAMINS (DAILY MVI) TABLET (FP) PO SCH (09:04)
[2021-08-19] MEDS: ZINC SULFATE 220 MG CAPSULE (FP) GT SCH (09:04)
[2021-08-19] MEDS: APIXABAN 5 MG TABLET GT SCH (09:04)
[2021-08-19] MEDS: ZINC OXIDE 20% TOPICAL OINTMENT 30 GM TUBE TP SCH (09:05)
[2021-08-19] MEDS: ASCORBIC ACID 250 MG TABLET (FP) GT SCH (09:05)
[2021-08-19] MEDS: COLLAGENASE CLOSTRIDIUM HIST. 30 GRAMS TUBE TP SCH (09:05)
[2021-08-19] MEDS: FAMOTIDINE 40 MG/5 ML ORAL SUSPENSION PEG SCH (09:06)
[2021-08-19] MEDS: NYSTATIN 100000 UNIT/GM TOPICAL OINTMENT 15 GM TUBE TP SCH (09:06)
[2021-08-19] MEDS: BACITRACIN/POLYMYXIN B SULFATE 15 GM TUBE TP SCH (09:06)
[2021-08-19] MEDS: LORazepam 0.5 MG TABLET PO PRN (09:11)
[2021-08-19] MEDS: ACETAMINOPHEN 325 MG TABLET (FP) PO PRN ×2 (20:34→20:39)
[2021-08-20] MEDS: dilTIAZem HCL 60 MG TABLET NR SCH ×4 (01:18→17:49)
[2021-08-20] MEDS: APIXABAN 5 MG TABLET GT SCH ×3 (01:18→21:17)
[2021-08-20] MEDS: NYSTATIN 100000 UNIT/GM TOPICAL OINTMENT 15 GM TUBE TP SCH ×3 (01:19→21:19)
[2021-08-20] MEDS: ZINC OXIDE 20% TOPICAL OINTMENT 30 GM TUBE TP SCH ×3 (01:19→21:19)
[2021-08-20] MEDS ORDERED: PT OWN MED DRAWER 7, Y5N ONE ×3 (01:22→21:01)
[2021-08-20] MEDS: oxyCODONE HCL 5 MG TABLET PO PRN ×3 (01:24→21:17)
[2021-08-20] MEDS: LORazepam 0.5 MG TABLET PO PRN ×2 (01:24→21:18)
[2021-08-20] MEDS: ASCORBIC ACID 250 MG TABLET (FP) GT SCH ×3 (01:24→21:17)
[2021-08-20] MEDS: AMINO ACIDS/PROTEIN HYDROLYS 30 ML LIQUID.PKT GT SCH (11:41)
[2021-08-20] MEDS: MULTIVITAMINS (DAILY MVI) TABLET (FP) PO SCH (11:45)
[2021-08-20] MEDS: COLLAGENASE CLOSTRIDIUM HIST. 30 GRAMS TUBE TP SCH (11:46)
[2021-08-20] MEDS: FAMOTIDINE 40 MG/5 ML ORAL SUSPENSION PEG SCH (11:46)
[2021-08-20] MEDS: BACITRACIN/POLYMYXIN B SULFATE 15 GM TUBE TP SCH (11:46)
[2021-08-20] MEDS: ZINC SULFATE 220 MG CAPSULE (FP) GT SCH (11:46)
[2021-08-20 12:27] LABS: BASO % 0.5 % (0-2.0); EOS % 0.9 % (0-4.5); HEMATOCRIT 37.3 % (35.4-49); HEMOGLOBIN 12.2 GM/dL (11.7-16.9); LYMPH % 9.4 % (8-40); MCHC 32.9 g/dl (32.0-35.9); MEAN CELL VOLUME 85.1 fl (80-96); MEAN PLT VOLUME 7.7 fl (7.5-11.1); MONO % 6.3 % (3.8-10.2); NEUT % 82.9 % (42.8-82.8); PLATELET COUNT 563 10^3/uL (134-434); RBC 4.38 M/mm3 (4.00-5.60); RDW 14.7 % (11.9-15.9); WHITE BLOOD COUNT 15.2 K/mm3 (4.0-10.0)
[2021-08-20 12:45] LABS: BLOOD UREA NITROGEN 12.5 mg/dL (7-18); CALCIUM 9.4 mg/dL (8.5-10.1); MAGNESIUM 2.3 mg/dL (1.8-2.4)
[2021-08-20 12:48] LABS: CREATININE 0.6 mg/dL (0.55-1.3)
[2021-08-21] MEDS: ACETAMINOPHEN 325 MG TABLET (FP) PO PRN (02:14)
[2021-08-21] MEDS: dilTIAZem HCL 60 MG TABLET NR SCH ×5 (05:34→23:58)
[2021-08-21 06:20] LABS: EPI CELLS 8 /uL (0-25.1); HYALINE CASTS 3 /uL (0-3.1); PH,URINE 5.5 (5.0-8.0); URINE APPEARANCE TURBID; URINE BACTERIA 59 /uL (0-1359); URINE BILIRUBIN NEGATIVE (NEGATIVE); URINE COLOR YELLOW; URINE GLUCOSE (UA) NEGATIVE (NEGATIVE); URINE KETONE NEGATIVE (NEGATIVE); URINE LEUK ESTERASE NEGATIVE (NEGATIVE); URINE NITRITE NEGATIVE (NEGATIVE); URINE PROTEIN NEGATIVE (NEGATIVE); URINE RBC 1657 /uL (0-23.9); URINE UROBILINOGEN 0.2 mg/dL (0.2-1.0); URINE WBC 19 /uL (0-25.8)
[2021-08-21 07:16] LABS: URINE CRYSTALS MANY /hpf
[2021-08-21] MEDS: AMINO ACIDS/PROTEIN HYDROLYS 30 ML LIQUID.PKT GT SCH (13:50)
[2021-08-21] MEDS: ZINC OXIDE 20% TOPICAL OINTMENT 30 GM TUBE TP SCH ×2 (13:51→23:00)
[2021-08-21] MEDS: MULTIVITAMINS (DAILY MVI) TABLET (FP) PO SCH (13:52)
[2021-08-21] MEDS: COLLAGENASE CLOSTRIDIUM HIST. 30 GRAMS TUBE TP SCH (13:52)
[2021-08-21] MEDS: ASCORBIC ACID 250 MG TABLET (FP) GT SCH ×2 (13:52→23:00)
[2021-08-21] MEDS: BACITRACIN/POLYMYXIN B SULFATE 15 GM TUBE TP SCH (13:52)
[2021-08-21] MEDS: FAMOTIDINE 40 MG/5 ML ORAL SUSPENSION PEG SCH (13:52)
[2021-08-21] MEDS: ZINC SULFATE 220 MG CAPSULE (FP) GT SCH (13:52)
[2021-08-21] MEDS: NYSTATIN 100000 UNIT/GM TOPICAL OINTMENT 15 GM TUBE TP SCH ×2 (13:52→23:00)
[2021-08-21] MEDS: APIXABAN 5 MG TABLET GT SCH ×2 (13:53→23:00)
[2021-08-21] MEDS: oxyCODONE HCL 5 MG TABLET PO PRN ×2 (13:53→23:00)
[2021-08-21] MEDS ORDERED: CEFTRIAXONE 1 GM in DEXTROSE 5%-WATER - 50 ML IVPB ONE (18:54)
[2021-08-21] MEDS ORDERED: cefTRIAXone SODIUM 1 GM VIAL ONE (19:47)
[2021-08-21] MEDS ORDERED: DEXTROSE 5%-WATER - 50 ML IVPB ONE (19:47)
[2021-08-21] MEDS: SCOPOLAMINE HYDROBROMIDE 1 PATCH PATCH.TD72 TD SCH (19:54)
[2021-08-21] MEDS: LORazepam 0.5 MG TABLET PO PRN (23:00)
[2021-08-22] MEDS: ACETAMINOPHEN 325 MG TABLET (FP) PO PRN ×2 (05:32→19:06)
[2021-08-22] MEDS: oxyCODONE HCL 5 MG TABLET PO PRN (05:33)
[2021-08-22] MEDS: dilTIAZem HCL 60 MG TABLET NR SCH ×4 (05:34→23:39)
[2021-08-22 08:54] LABS: BASO % 0.6 % (0-2.0); EOS % 0.7 % (0-4.5); HEMATOCRIT 33.1 % (35.4-49); HEMOGLOBIN 11.3 GM/dL (11.7-16.9); LYMPH % 3.5 % (8-40); MCH 28.6 pg (25.7-33.7); MEAN CELL VOLUME 83.9 fl (80-96); MEAN PLT VOLUME 7.5 fl (7.5-11.1); MONO % 6.3 % (3.8-10.2); NEUT % 88.9 % (42.8-82.8); PLATELET COUNT 544 10^3/uL (134-434); RBC 3.95 M/mm3 (4.00-5.60); RDW 14.5 % (11.9-15.9); WHITE BLOOD COUNT 10.1 K/mm3 (4.0-10.0)
[2021-08-22] MEDS ORDERED: PT OWN MED DRAWER 7, Y5N ONE (08:55)
[2021-08-22 09:27] LABS: CREATININE 0.5 mg/dL (0.55-1.3)
[2021-08-22 09:29] LABS: BILIRUBIN,TOTAL 0.3 mg/dL (0.2-1); TOT PROT 6.6 g/dl (6.4-8.2)
[2021-08-22 09:32] LABS: ALBUMIN 2.8 g/dl (3.4-5.0); BLOOD UREA NITROGEN 13.9 mg/dL (7-18)
[2021-08-22 09:33] LABS: CALCIUM 8.9 mg/dL (8.5-10.1); MAGNESIUM 2.3 mg/dL (1.8-2.4)
[2021-08-22] MEDS: MULTIVITAMINS (DAILY MVI) TABLET (FP) PO SCH (09:33)
[2021-08-22] MEDS: AMINO ACIDS/PROTEIN HYDROLYS 30 ML LIQUID.PKT GT SCH (09:33)
[2021-08-22] MEDS: APIXABAN 5 MG TABLET GT SCH ×2 (09:33→21:36)
[2021-08-22] MEDS: ASCORBIC ACID 250 MG TABLET (FP) GT SCH ×2 (09:34→23:39)
[2021-08-22] MEDS: FAMOTIDINE 40 MG/5 ML ORAL SUSPENSION PEG SCH (09:34)
[2021-08-22 09:35] LABS: PHOSPHOROUS 3.8 mg/dL (2.5-4.9)
[2021-08-22] MEDS: ZINC SULFATE 220 MG CAPSULE (FP) GT SCH (09:36)
[2021-08-22] MEDS: ZINC OXIDE 20% TOPICAL OINTMENT 30 GM TUBE TP SCH ×2 (09:37→21:37)
[2021-08-22] MEDS: BACITRACIN/POLYMYXIN B SULFATE 15 GM TUBE TP SCH (09:38)
[2021-08-22] MEDS: NYSTATIN 100000 UNIT/GM TOPICAL OINTMENT 15 GM TUBE TP SCH ×2 (14:00→21:36)
[2021-08-22] MEDS: COLLAGENASE CLOSTRIDIUM HIST. 30 GRAMS TUBE TP SCH (14:01)
[2021-08-23] MEDS: ACETAMINOPHEN 325 MG TABLET (FP) PO PRN ×3 (01:08→13:14)
[2021-08-23] MEDS: fentaNYL 25mcg/hr PATCH.TD72 TD SCH (01:53)
[2021-08-23] MEDS: FENTANYL PATCH WASTE TD PRN (02:09)
[2021-08-23] MEDS: dilTIAZem HCL 60 MG TABLET NR SCH ×4 (05:41→23:49)
[2021-08-23 08:32] LABS: BASO % 0.3 % (0-2.0); EOS % 0.1 % (0-4.5); HEMATOCRIT 34.4 % (35.4-49); HEMOGLOBIN 11.4 GM/dL (11.7-16.9); LYMPH % 6.7 % (8-40); MCH 27.8 pg (25.7-33.7); MCHC 33.2 g/dl (32.0-35.9); MEAN CELL VOLUME 83.8 fl (80-96); MEAN PLT VOLUME 7.6 fl (7.5-11.1); MONO % 11.7 % (3.8-10.2); NEUT % 81.2 % (42.8-82.8); PLATELET COUNT 540 10^3/uL (134-434); RBC 4.11 M/mm3 (4.00-5.60); RDW 14.3 % (11.9-15.9); WHITE BLOOD COUNT 11.7 K/mm3 (4.0-10.0)
[2021-08-23] MEDS: APIXABAN 5 MG TABLET GT SCH ×2 (09:02→21:54)
[2021-08-23] MEDS: AMINO ACIDS/PROTEIN HYDROLYS 30 ML LIQUID.PKT GT SCH (09:02)
[2021-08-23] MEDS: MULTIVITAMINS (DAILY MVI) TABLET (FP) PO SCH (09:03)
[2021-08-23] MEDS: COLLAGENASE CLOSTRIDIUM HIST. 30 GRAMS TUBE TP SCH (09:03)
[2021-08-23] MEDS: BACITRACIN/POLYMYXIN B SULFATE 15 GM TUBE TP SCH (09:03)
[2021-08-23] MEDS: ZINC SULFATE 220 MG CAPSULE (FP) GT SCH (09:03)
[2021-08-23] MEDS: ASCORBIC ACID 250 MG TABLET (FP) GT SCH (09:03)
[2021-08-23] MEDS: FAMOTIDINE 40 MG/5 ML ORAL SUSPENSION PEG SCH (09:03)
[2021-08-23] MEDS: NYSTATIN 100000 UNIT/GM TOPICAL OINTMENT 15 GM TUBE TP SCH ×2 (09:03→21:55)
[2021-08-23] MEDS: ZINC OXIDE 20% TOPICAL OINTMENT 30 GM TUBE TP SCH ×2 (09:04→21:56)
[2021-08-23 09:07] LABS: BLOOD UREA NITROGEN 13.5 mg/dL (7-18)
[2021-08-23 09:09] LABS: CREATININE 0.5 mg/dL (0.55-1.3)
[2021-08-23 09:10] LABS: CALCIUM 9.1 mg/dL (8.5-10.1)
[2021-08-23] MEDS ORDERED: DEXTROSE 5%-WATER - 50 ML IVPB ONE (15:25)
[2021-08-23] MEDS ORDERED: cefTRIAXone SODIUM 1 GM VIAL ONE (15:25)
[2021-08-23] MEDS: CEFTRIAXONE 1 GM in DEXTROSE 5%-WATER - 50 ML IVPB SCH (15:46)
[2021-08-23 19:12] LABS: EPI CELLS 23 /uL (0-25.1); HYALINE CASTS 4 /uL (0-3.1); URINE APPEARANCE TURBID; URINE BACTERIA 0 /uL (0-1359); URINE BILIRUBIN 1+ (NEGATIVE); URINE COLOR RED; URINE GLUCOSE (UA) NEGATIVE (NEGATIVE); URINE KETONE NEGATIVE (NEGATIVE); URINE LEUK ESTERASE 1+ (NEGATIVE); URINE NITRITE NEGATIVE (NEGATIVE); URINE PROTEIN 2+ (NEGATIVE); URINE UROBILINOGEN 0.2 mg/dL (0.2-1.0); URINE WBC 123 /uL (0-25.8)
[2021-08-23 19:52] LABS: URINE RBC 38686.1 /uL (0-23.9)
[2021-08-23] MEDS: ACETAMINOPHEN 650 MG/20.3 ML ORAL SOLUTION (CUPS) PO PRN (21:54)
[2021-08-23] MEDS: ASCORBIC ACID 500 MG/5 ML GT SCH (21:55)
[2021-08-24] MEDS: dilTIAZem HCL 60 MG TABLET NR SCH ×4 (05:46→23:14)
[2021-08-24] MEDS: ACETAMINOPHEN 650 MG/20.3 ML ORAL SOLUTION (CUPS) PO PRN (05:48)
[2021-08-24] MEDS ORDERED: cefTRIAXone SODIUM 1 GM VIAL ONE (08:57)
[2021-08-24] MEDS ORDERED: DEXTROSE 5%-WATER - 50 ML IVPB ONE (08:58)
[2021-08-24] MEDS: MULTIVITAMINS (DAILY MVI) TABLET (FP) PO SCH (09:44)
[2021-08-24] MEDS: CEFTRIAXONE 1 GM in DEXTROSE 5%-WATER - 50 ML IVPB SCH (09:44)
[2021-08-24] MEDS: APIXABAN 5 MG TABLET GT SCH ×2 (09:44→23:13)
[2021-08-24] MEDS: ZINC SULFATE 220 MG CAPSULE (FP) GT SCH (09:44)
[2021-08-24] MEDS: FAMOTIDINE 40 MG/5 ML ORAL SUSPENSION PEG SCH (09:44)
[2021-08-24] MEDS: AMINO ACIDS/PROTEIN HYDROLYS 30 ML LIQUID.PKT GT SCH (09:44)
[2021-08-24] MEDS: ASCORBIC ACID 500 MG/5 ML GT SCH ×2 (09:45→23:13)
[2021-08-24] MEDS: ZINC OXIDE 20% TOPICAL OINTMENT 30 GM TUBE TP SCH ×2 (09:47→23:13)
[2021-08-24] MEDS: COLLAGENASE CLOSTRIDIUM HIST. 30 GRAMS TUBE TP SCH (09:48)
[2021-08-24] MEDS: NYSTATIN 100000 UNIT/GM TOPICAL OINTMENT 15 GM TUBE TP SCH ×2 (10:45→23:13)
[2021-08-24] MEDS: BACITRACIN/POLYMYXIN B SULFATE 15 GM TUBE TP SCH (10:45)
[2021-08-24] MEDS: cloNIDine-TTS 0.3 MG /24 HRS PATCH.TDWK TD SCH (11:05)
[2021-08-24] MEDS: SCOPOLAMINE HYDROBROMIDE 1 PATCH PATCH.TD72 TD SCH (17:29)
[2021-08-25] MEDS: dilTIAZem HCL 60 MG TABLET NR SCH ×3 (06:28→17:47)
[2021-08-25] MEDS: ACETAMINOPHEN 650 MG/20.3 ML ORAL SOLUTION (CUPS) PO PRN ×2 (06:28→22:11)
[2021-08-25 08:59] LABS: BASO % 0.2 % (0-2.0); HEMATOCRIT 34.3 % (35.4-49); HEMOGLOBIN 11.3 GM/dL (11.7-16.9); LYMPH % 3.5 % (8-40); MCH 27.5 pg (25.7-33.7); MCHC 32.8 g/dl (32.0-35.9); MEAN CELL VOLUME 83.7 fl (80-96); MEAN PLT VOLUME 7.9 fl (7.5-11.1); MONO % 7.5 % (3.8-10.2); NEUT % 88.8 % (42.8-82.8); PLATELET COUNT 596 10^3/uL (134-434); RDW 14.4 % (11.9-15.9); WHITE BLOOD COUNT 15.5 K/mm3 (4.0-10.0)
[2021-08-25 09:16] LABS: CALCIUM 8.9 mg/dL (8.5-10.1)
[2021-08-25 09:17] LABS: BLOOD UREA NITROGEN 9.1 mg/dL (7-18); MAGNESIUM 2.1 mg/dL (1.8-2.4)
[2021-08-25 09:20] LABS: CREATININE 0.5 mg/dL (0.55-1.3); PHOSPHOROUS 3.2 mg/dL (2.5-4.9)
[2021-08-25] MEDS ORDERED: MEROPENEM 1 GM VIAL (RESTRICTED TO ID) IVPB ONE ×2 (10:41→17:34)
[2021-08-25] MEDS ORDERED: DEXTROSE 5%-WATER 100 ML IVPB ONE ×2 (10:42→17:35)
[2021-08-25] MEDS: MULTIVITAMINS (DAILY MVI) TABLET (FP) PO SCH (10:54)
[2021-08-25] MEDS: APIXABAN 5 MG TABLET GT SCH ×2 (10:54→22:10)
[2021-08-25] MEDS: AMINO ACIDS/PROTEIN HYDROLYS 30 ML LIQUID.PKT GT SCH (10:54)
[2021-08-25] MEDS: MEROPENEM 1 GM in DEXTROSE 5%-WATER 100 ML IVPB SCH ×2 (10:54→17:47)
[2021-08-25] MEDS: ZINC SULFATE 220 MG CAPSULE (FP) GT SCH (10:54)
[2021-08-25] MEDS: BACITRACIN/POLYMYXIN B SULFATE 15 GM TUBE TP SCH (10:55)
[2021-08-25] MEDS: ZINC OXIDE 20% TOPICAL OINTMENT 30 GM TUBE TP SCH ×2 (10:55→22:11)
[2021-08-25] MEDS: ASCORBIC ACID 500 MG/5 ML GT SCH ×2 (10:55→22:10)
[2021-08-25] MEDS: NYSTATIN 100000 UNIT/GM TOPICAL OINTMENT 15 GM TUBE TP SCH ×2 (10:55→22:10)
[2021-08-25] MEDS: COLLAGENASE CLOSTRIDIUM HIST. 30 GRAMS TUBE TP SCH (10:55)
[2021-08-25] MEDS: FAMOTIDINE 40 MG/5 ML ORAL SUSPENSION PEG SCH (10:55)
[2021-08-25] MEDS: DEXAMETHASONE SOD PHOSPHATE 4 MG/1 ML VIAL IVPUSH SCH (12:43)
[2021-08-25] MEDS ORDERED: REMDESIVIR 200 MG in SODIUM CHLORIDE 250 ML IVPB ONE (13:00)
[2021-08-26] MEDS: dilTIAZem HCL 60 MG TABLET NR SCH ×5 (00:20→23:07)
[2021-08-26] MEDS ORDERED: FENTANYL PATCH WASTE TD PRN (01:23)
[2021-08-26] MEDS ORDERED: MEROPENEM 1 GM VIAL (RESTRICTED TO ID) IVPB ONE ×3 (03:42→16:33)
[2021-08-26] MEDS ORDERED: DEXTROSE 5%-WATER 100 ML IVPB ONE ×3 (03:43→16:33)
[2021-08-26] MEDS: fentaNYL 25mcg/hr PATCH.TD72 TD SCH (03:53)
[2021-08-26] MEDS: MEROPENEM 1 GM in DEXTROSE 5%-WATER 100 ML IVPB SCH ×3 (03:54→17:05)
[2021-08-26] MEDS: FENTANYL PATCH WASTE TD PRN (04:04)
[2021-08-26 09:21] LABS: BASO % 0.1 % (0-2.0); HEMATOCRIT 34.9 % (35.4-49); HEMOGLOBIN 11.6 GM/dL (11.7-16.9); LYMPH % 6.2 % (8-40); MCH 27.7 pg (25.7-33.7); MCHC 33.3 g/dl (32.0-35.9); MEAN CELL VOLUME 83.2 fl (80-96); MEAN PLT VOLUME 7.9 fl (7.5-11.1); MONO % 6.9 % (3.8-10.2); NEUT % 86.8 % (42.8-82.8); PLATELET COUNT 520 10^3/uL (134-434); RDW 14.5 % (11.9-15.9); WHITE BLOOD COUNT 12.4 K/mm3 (4.0-10.0)
[2021-08-26 09:55] LABS: CALCIUM 8.6 mg/dL (8.5-10.1)
[2021-08-26 09:56] LABS: ALBUMIN 2.7 g/dl (3.4-5.0); BLOOD UREA NITROGEN 13.2 mg/dL (7-18); MAGNESIUM 2.1 mg/dL (1.8-2.4)
[2021-08-26 09:58] LABS: CREATININE 0.5 mg/dL (0.55-1.3)
[2021-08-26 09:59] LABS: PHOSPHOROUS 2.2 mg/dL (2.5-4.9)
[2021-08-26 10:00] LABS: BILIRUBIN,TOTAL 0.4 mg/dL (0.2-1); TOT PROT 6.9 g/dl (6.4-8.2)
[2021-08-26] MEDS: AMINO ACIDS/PROTEIN HYDROLYS 30 ML LIQUID.PKT GT SCH (10:37)
[2021-08-26] MEDS: ASCORBIC ACID 500 MG/5 ML GT SCH ×2 (10:38→22:40)
[2021-08-26] MEDS: APIXABAN 5 MG TABLET GT SCH ×2 (10:38→22:39)
[2021-08-26] MEDS: ZINC SULFATE 220 MG CAPSULE (FP) GT SCH (10:38)
[2021-08-26] MEDS: MULTIVITAMINS (DAILY MVI) TABLET (FP) PO SCH (10:38)
[2021-08-26] MEDS: FAMOTIDINE 40 MG/5 ML ORAL SUSPENSION PEG SCH (10:38)
[2021-08-26] MEDS: DEXAMETHASONE SOD PHOSPHATE 4 MG/1 ML VIAL IVPUSH SCH (10:38)
[2021-08-26] MEDS: BACITRACIN/POLYMYXIN B SULFATE 15 GM TUBE TP SCH (10:39)
[2021-08-26] MEDS: NYSTATIN 100000 UNIT/GM TOPICAL OINTMENT 15 GM TUBE TP SCH ×2 (10:39→22:39)
[2021-08-26] MEDS: ZINC OXIDE 20% TOPICAL OINTMENT 30 GM TUBE TP SCH ×2 (10:39→22:40)
[2021-08-26] MEDS: COLLAGENASE CLOSTRIDIUM HIST. 30 GRAMS TUBE TP SCH (10:39)
[2021-08-26] MEDS ORDERED: REMDESIVIR 100 MG in SODIUM CHLORIDE 250 ML IVPB SCH (13:00)
[2021-08-27] MEDS ORDERED: MEROPENEM 1 GM VIAL (RESTRICTED TO ID) IVPB ONE ×3 (01:32→16:39)
[2021-08-27] MEDS ORDERED: DEXTROSE 5%-WATER 100 ML IVPB ONE ×3 (01:32→16:39)
[2021-08-27] MEDS: MEROPENEM 1 GM in DEXTROSE 5%-WATER 100 ML IVPB SCH ×3 (01:42→16:59)
[2021-08-27] MEDS: dilTIAZem HCL 60 MG TABLET NR SCH ×4 (05:32→23:50)
[2021-08-27 08:00] LABS: BASO % 0.1 % (0-2.0); HEMATOCRIT 31.8 % (35.4-49); HEMOGLOBIN 10.2 GM/dL (11.7-16.9); LYMPH % 6.6 % (8-40); MCH 26.8 pg (25.7-33.7); MCHC 32.1 g/dl (32.0-35.9); MEAN CELL VOLUME 83.6 fl (80-96); MEAN PLT VOLUME 8.4 fl (7.5-11.1); MONO % 7.2 % (3.8-10.2); NEUT % 86.1 % (42.8-82.8); PLATELET COUNT 482 10^3/uL (134-434); RDW 14.7 % (11.9-15.9); WHITE BLOOD COUNT 15.3 K/mm3 (4.0-10.0)
[2021-08-27 08:09] LABS: CALCIUM 8.4 mg/dL (8.5-10.1); MAGNESIUM 2.1 mg/dL (1.8-2.4)
[2021-08-27 08:10] LABS: ALBUMIN 2.6 g/dl (3.4-5.0)
[2021-08-27 08:12] LABS: CREATININE 0.4 mg/dL (0.55-1.3); PHOSPHOROUS 2.2 mg/dL (2.5-4.9)
[2021-08-27 08:14] LABS: BILIRUBIN,TOTAL 0.2 mg/dL (0.2-1); TOT PROT 6.4 g/dl (6.4-8.2)
[2021-08-27] MEDS: AMINO ACIDS/PROTEIN HYDROLYS 30 ML LIQUID.PKT GT SCH (09:39)
[2021-08-27] MEDS: MULTIVITAMINS (DAILY MVI) TABLET (FP) PO SCH (09:39)
[2021-08-27] MEDS: APIXABAN 5 MG TABLET GT SCH ×2 (09:39→22:50)
[2021-08-27] MEDS: FAMOTIDINE 40 MG/5 ML ORAL SUSPENSION PEG SCH (09:39)
[2021-08-27] MEDS: DEXAMETHASONE SOD PHOSPHATE 4 MG/1 ML VIAL IVPUSH SCH (09:39)
[2021-08-27] MEDS: ZINC SULFATE 220 MG CAPSULE (FP) GT SCH (09:39)
[2021-08-27] MEDS: NYSTATIN 100000 UNIT/GM TOPICAL OINTMENT 15 GM TUBE TP SCH ×2 (09:40→22:50)
[2021-08-27] MEDS: ZINC OXIDE 20% TOPICAL OINTMENT 30 GM TUBE TP SCH ×2 (09:40→22:50)
[2021-08-27] MEDS: ASCORBIC ACID 500 MG/5 ML GT SCH ×2 (09:40→22:50)
[2021-08-27] MEDS: COLLAGENASE CLOSTRIDIUM HIST. 30 GRAMS TUBE TP SCH (09:40)
[2021-08-27] MEDS: BACITRACIN/POLYMYXIN B SULFATE 15 GM TUBE TP SCH (09:40)
[2021-08-27] MEDS: SCOPOLAMINE HYDROBROMIDE 1 PATCH PATCH.TD72 TD SCH (14:20)
[2021-08-28] MEDS ORDERED: MEROPENEM 1 GM VIAL (RESTRICTED TO ID) IVPB ONE ×3 (02:07→16:10)
[2021-08-28] MEDS ORDERED: DEXTROSE 5%-WATER 100 ML IVPB ONE ×3 (02:07→16:10)
[2021-08-28] MEDS: MEROPENEM 1 GM in DEXTROSE 5%-WATER 100 ML IVPB SCH ×3 (02:39→17:23)
[2021-08-28] MEDS: dilTIAZem HCL 60 MG TABLET NR SCH ×3 (06:41→17:23)
[2021-08-28 08:51] LABS: BASO % 0.2 % (0-2.0); EOS % 0.1 % (0-4.5); HEMATOCRIT 33.4 % (35.4-49); HEMOGLOBIN 10.5 GM/dL (11.7-16.9); MCH 26.4 pg (25.7-33.7); MCHC 31.6 g/dl (32.0-35.9); MEAN CELL VOLUME 83.6 fl (80-96); MEAN PLT VOLUME 8.1 fl (7.5-11.1); MONO % 8.3 % (3.8-10.2); NEUT % 82.4 % (42.8-82.8); PLATELET COUNT 513 10^3/uL (134-434); RBC 3.99 M/mm3 (4.00-5.60); RDW 14.6 % (11.9-15.9); WHITE BLOOD COUNT 13.6 K/mm3 (4.0-10.0)
[2021-08-28 09:24] LABS: ALBUMIN 2.5 g/dl (3.4-5.0); BLOOD UREA NITROGEN 14.3 mg/dL (7-18); CALCIUM 8.8 mg/dL (8.5-10.1); MAGNESIUM 2.3 mg/dL (1.8-2.4)
[2021-08-28 09:27] LABS: CREATININE 0.4 mg/dL (0.55-1.3); PHOSPHOROUS 2.2 mg/dL (2.5-4.9)
[2021-08-28 09:29] LABS: BILIRUBIN,TOTAL 0.3 mg/dL (0.2-1); TOT PROT 6.4 g/dl (6.4-8.2)
[2021-08-28] MEDS: AMINO ACIDS/PROTEIN HYDROLYS 30 ML LIQUID.PKT GT SCH (10:26)
[2021-08-28] MEDS: FAMOTIDINE 40 MG/5 ML ORAL SUSPENSION PEG SCH (10:26)
[2021-08-28] MEDS: DEXAMETHASONE SOD PHOSPHATE 4 MG/1 ML VIAL IVPUSH SCH (10:27)
[2021-08-28] MEDS: NYSTATIN 100000 UNIT/GM TOPICAL OINTMENT 15 GM TUBE TP SCH ×2 (10:27→22:27)
[2021-08-28] MEDS: ZINC SULFATE 220 MG CAPSULE (FP) GT SCH (10:27)
[2021-08-28] MEDS: MULTIVITAMINS (DAILY MVI) TABLET (FP) PO SCH (10:27)
[2021-08-28] MEDS: APIXABAN 5 MG TABLET GT SCH ×2 (10:27→22:27)
[2021-08-28] MEDS: COLLAGENASE CLOSTRIDIUM HIST. 30 GRAMS TUBE TP SCH (10:27)
[2021-08-28] MEDS: BACITRACIN/POLYMYXIN B SULFATE 15 GM TUBE TP SCH (10:27)
[2021-08-28] MEDS: ZINC OXIDE 20% TOPICAL OINTMENT 30 GM TUBE TP SCH ×2 (10:28→22:27)
[2021-08-28] MEDS: ASCORBIC ACID 500 MG/5 ML GT SCH ×2 (10:28→22:27)
[2021-08-29] MEDS ORDERED: MEROPENEM 1 GM VIAL (RESTRICTED TO ID) IVPB ONE ×3 (01:01→18:06)
[2021-08-29] MEDS ORDERED: DEXTROSE 5%-WATER 100 ML IVPB ONE ×3 (01:02→18:06)
[2021-08-29] MEDS: fentaNYL 25mcg/hr PATCH.TD72 TD SCH (01:08)
[2021-08-29] MEDS: dilTIAZem HCL 60 MG TABLET NR SCH ×5 (01:09→23:32)
[2021-08-29] MEDS: MEROPENEM 1 GM in DEXTROSE 5%-WATER 100 ML IVPB SCH ×3 (01:09→18:17)
[2021-08-29 09:43] LABS: BASO % 0.3 % (0-2.0); EOS % 0.1 % (0-4.5); HEMATOCRIT 35.6 % (35.4-49); HEMOGLOBIN 11.8 GM/dL (11.7-16.9); LYMPH % 13.5 % (8-40); MCH 27.5 pg (25.7-33.7); MCHC 33.3 g/dl (32.0-35.9); MEAN CELL VOLUME 82.6 fl (80-96); MEAN PLT VOLUME 8.2 fl (7.5-11.1); MONO % 9.7 % (3.8-10.2); NEUT % 76.4 % (42.8-82.8); PLATELET COUNT 614 10^3/uL (134-434); RBC 4.31 M/mm3 (4.00-5.60); WHITE BLOOD COUNT 13.8 K/mm3 (4.0-10.0)
[2021-08-29 10:04] LABS: BLOOD UREA NITROGEN 16.4 mg/dL (7-18); CALCIUM 9.6 mg/dL (8.5-10.1); MAGNESIUM 2.4 mg/dL (1.8-2.4)
[2021-08-29 10:07] LABS: CREATININE 0.5 mg/dL (0.55-1.3); PHOSPHOROUS 2.8 mg/dL (2.5-4.9)
[2021-08-29 10:09] LABS: BILIRUBIN,TOTAL 0.7 mg/dL (0.2-1); TOT PROT 7.4 g/dl (6.4-8.2)
[2021-08-29] MEDS: DEXAMETHASONE SOD PHOSPHATE 4 MG/1 ML VIAL IVPUSH SCH (11:06)
[2021-08-29] MEDS: COLLAGENASE CLOSTRIDIUM HIST. 30 GRAMS TUBE TP SCH (11:13)
[2021-08-29] MEDS: NYSTATIN 100000 UNIT/GM TOPICAL OINTMENT 15 GM TUBE TP SCH ×2 (11:13→23:34)
[2021-08-29] MEDS: BACITRACIN/POLYMYXIN B SULFATE 15 GM TUBE TP SCH (11:14)
[2021-08-29] MEDS: AMINO ACIDS/PROTEIN HYDROLYS 30 ML LIQUID.PKT GT SCH (14:54)
[2021-08-29] MEDS: MULTIVITAMINS (DAILY MVI) TABLET (FP) PO SCH (14:55)
[2021-08-29] MEDS: ZINC SULFATE 220 MG CAPSULE (FP) GT SCH (14:56)
[2021-08-29] MEDS: APIXABAN 5 MG TABLET GT SCH ×2 (14:57→23:31)
[2021-08-29] MEDS: ASCORBIC ACID 500 MG/5 ML GT SCH ×2 (14:58→23:32)
[2021-08-29] MEDS: FAMOTIDINE 40 MG/5 ML ORAL SUSPENSION PEG SCH (14:58)
[2021-08-29] MEDS: ZINC OXIDE 20% TOPICAL OINTMENT 30 GM TUBE TP SCH ×2 (15:00→23:37)
[2021-08-30] MEDS ORDERED: DEXTROSE 5%-WATER 100 ML IVPB ONE ×3 (02:33→17:31)
[2021-08-30] MEDS ORDERED: MEROPENEM 1 GM VIAL (RESTRICTED TO ID) IVPB ONE ×3 (02:33→17:31)
[2021-08-30] MEDS: MEROPENEM 1 GM in DEXTROSE 5%-WATER 100 ML IVPB SCH ×3 (02:39→17:32)
[2021-08-30] MEDS: dilTIAZem HCL 60 MG TABLET NR SCH ×5 (06:54→17:54)
[2021-08-30] MEDS: AMINO ACIDS/PROTEIN HYDROLYS 30 ML LIQUID.PKT GT SCH ×2 (08:50→17:22)
[2021-08-30 10:12] LABS: BASO % 0.1 % (0-2.0); EOS % 0.1 % (0-4.5); HEMATOCRIT 34.8 % (35.4-49); HEMOGLOBIN 11.4 GM/dL (11.7-16.9); LYMPH % 7.6 % (8-40); MCH 27.4 pg (25.7-33.7); MCHC 32.8 g/dl (32.0-35.9); MEAN CELL VOLUME 83.5 fl (80-96); MEAN PLT VOLUME 7.7 fl (7.5-11.1); MONO % 8.3 % (3.8-10.2); NEUT % 83.9 % (42.8-82.8); PLATELET COUNT 517 10^3/uL (134-434); RBC 4.17 M/mm3 (4.00-5.60); RDW 14.9 % (11.9-15.9); WHITE BLOOD COUNT 17.1 K/mm3 (4.0-10.0)
[2021-08-30] MEDS: DEXAMETHASONE SOD PHOSPHATE 4 MG/1 ML VIAL IVPUSH SCH (11:22)
[2021-08-30 11:23] LABS: ALBUMIN 2.7 g/dl (3.4-5.0); BLOOD UREA NITROGEN 14.8 mg/dL (7-18); CALCIUM 9.1 mg/dL (8.5-10.1)
[2021-08-30] MEDS: ZINC SULFATE 220 MG CAPSULE (FP) GT SCH (11:23)
[2021-08-30] MEDS: ASCORBIC ACID 500 MG/5 ML GT SCH ×2 (11:23→23:00)
[2021-08-30] MEDS: FAMOTIDINE 40 MG/5 ML ORAL SUSPENSION PEG SCH (11:24)
[2021-08-30 11:25] LABS: MAGNESIUM 2.2 mg/dL (1.8-2.4)
[2021-08-30 11:26] LABS: PHOSPHOROUS 2.7 mg/dL (2.5-4.9)
[2021-08-30 11:28] LABS: BILIRUBIN,TOTAL 0.4 mg/dL (0.2-1); CREATININE 0.5 mg/dL (0.55-1.3); TOT PROT 6.5 g/dl (6.4-8.2)
[2021-08-30] MEDS: MULTIVITAMINS (DAILY MVI) TABLET (FP) PO SCH (11:33)
[2021-08-30] MEDS: BACITRACIN/POLYMYXIN B SULFATE 15 GM TUBE TP SCH (13:19)
[2021-08-30] MEDS: ZINC OXIDE 20% TOPICAL OINTMENT 30 GM TUBE TP SCH ×2 (13:19→23:00)
[2021-08-30] MEDS: NYSTATIN 100000 UNIT/GM TOPICAL OINTMENT 15 GM TUBE TP SCH ×2 (13:19→23:00)
[2021-08-30] MEDS: COLLAGENASE CLOSTRIDIUM HIST. 30 GRAMS TUBE TP SCH (13:19)
[2021-08-30] MEDS: MULTIVIT-MINERALS ORAL LIQUID GT SCH (14:12)
[2021-08-30] MEDS: SCOPOLAMINE HYDROBROMIDE 1 PATCH PATCH.TD72 TD SCH (14:12)
[2021-08-30] MEDS ORDERED: AMINO ACIDS/PROTEIN HYDROLYS 30 ML LIQUID.PKT GT SCH (17:30)
[2021-08-31] MEDS ORDERED: DEXTROSE 5%-WATER 100 ML IVPB ONE ×3 (01:10→18:20)
[2021-08-31] MEDS ORDERED: MEROPENEM 1 GM VIAL (RESTRICTED TO ID) IVPB ONE ×3 (01:10→18:19)
[2021-08-31] MEDS: MEROPENEM 1 GM in DEXTROSE 5%-WATER 100 ML IVPB SCH ×3 (01:59→18:33)
[2021-08-31] MEDS: dilTIAZem HCL 60 MG TABLET NR SCH ×5 (02:00→23:47)
[2021-08-31] MEDS: AMINO ACIDS/PROTEIN HYDROLYS 30 ML LIQUID.PKT GT SCH ×2 (07:48→18:33)
[2021-08-31 08:42] LABS: BASO % 0.1 % (0-2.0); EOS % 0.2 % (0-4.5); HEMATOCRIT 37.1 % (35.4-49); HEMOGLOBIN 11.9 GM/dL (11.7-16.9); MCH 26.5 pg (25.7-33.7); MEAN CELL VOLUME 82.7 fl (80-96); MEAN PLT VOLUME 8.1 fl (7.5-11.1); MONO % 9.7 % (3.8-10.2); PLATELET COUNT 596 10^3/uL (134-434); RBC 4.49 M/mm3 (4.00-5.60); RDW 15.2 % (11.9-15.9)
[2021-08-31 09:14] LABS: BLOOD UREA NITROGEN 14.7 mg/dL (7-18); CALCIUM 9.3 mg/dL (8.5-10.1); MAGNESIUM 2.3 mg/dL (1.8-2.4)
[2021-08-31 09:16] LABS: PHOSPHOROUS 2.5 mg/dL (2.5-4.9)
[2021-08-31 09:17] LABS: CREATININE 0.5 mg/dL (0.55-1.3)
[2021-08-31] MEDS ORDERED: MULTIVIT-MINERALS ORAL LIQUID GT SCH (10:00)
[2021-08-31] MEDS: NYSTATIN 100000 UNIT/GM TOPICAL OINTMENT 15 GM TUBE TP SCH ×2 (10:07→23:48)
[2021-08-31] MEDS: MULTIVIT-MINERALS ORAL LIQUID GT SCH (10:07)
[2021-08-31] MEDS: FAMOTIDINE 40 MG/5 ML ORAL SUSPENSION PEG SCH (10:07)
[2021-08-31] MEDS: COLLAGENASE CLOSTRIDIUM HIST. 30 GRAMS TUBE TP SCH (10:07)
[2021-08-31] MEDS: ZINC OXIDE 20% TOPICAL OINTMENT 30 GM TUBE TP SCH ×2 (10:07→23:47)
[2021-08-31] MEDS: ASCORBIC ACID 500 MG/5 ML GT SCH ×2 (10:07→22:30)
[2021-08-31] MEDS: BACITRACIN/POLYMYXIN B SULFATE 15 GM TUBE TP SCH (10:07)
[2021-08-31] MEDS: cloNIDine-TTS 0.3 MG /24 HRS PATCH.TDWK TD SCH (12:46)
[2021-08-31] MEDS: DEXAMETHASONE SOD PHOSPHATE 4 MG/1 ML VIAL IVPUSH SCH (12:47)
[2021-08-31] MEDS ORDERED: APIXABAN 5 MG TABLET GT SCH (22:00)
[2021-09-01] MEDS ORDERED: MEROPENEM 1 GM VIAL (RESTRICTED TO ID) IVPB ONE ×3 (01:27→17:21)
[2021-09-01] MEDS ORDERED: DEXTROSE 5%-WATER 100 ML IVPB ONE ×3 (01:27→17:21)
[2021-09-01] MEDS: MEROPENEM 1 GM in DEXTROSE 5%-WATER 100 ML IVPB SCH ×3 (01:42→17:32)
[2021-09-01] MEDS: dilTIAZem HCL 60 MG TABLET NR SCH ×3 (06:02→17:32)
[2021-09-01] MEDS: COLLAGENASE CLOSTRIDIUM HIST. 30 GRAMS TUBE TP SCH ×2 (06:08→10:53)
[2021-09-01 06:47] LABS: BASO % 0.5 % (0-2.0); EOS % 0.2 % (0-4.5); HEMATOCRIT 32.8 % (35.4-49); HEMOGLOBIN 10.5 GM/dL (11.7-16.9); LYMPH % 11.2 % (8-40); MCH 26.5 pg (25.7-33.7); MCHC 31.9 g/dl (32.0-35.9); MEAN CELL VOLUME 83.2 fl (80-96); MEAN PLT VOLUME 8.6 fl (7.5-11.1); MONO % 8.5 % (3.8-10.2); NEUT % 79.6 % (42.8-82.8); PLATELET COUNT 444 10^3/uL (134-434); RBC 3.94 M/mm3 (4.00-5.60); RDW 15.3 % (11.9-15.9); WHITE BLOOD COUNT 13.8 K/mm3 (4.0-10.0)
[2021-09-01] MEDS: FAMOTIDINE 40 MG/5 ML ORAL SUSPENSION PEG SCH (10:50)
[2021-09-01] MEDS: MULTIVIT-MINERALS ORAL LIQUID GT SCH (10:50)
[2021-09-01] MEDS: AMINO ACIDS/PROTEIN HYDROLYS 30 ML LIQUID.PKT GT SCH ×2 (10:50→17:32)
[2021-09-01] MEDS: ASCORBIC ACID 500 MG/5 ML GT SCH ×2 (10:50→22:46)
[2021-09-01] MEDS: DEXAMETHASONE SOD PHOSPHATE 4 MG/1 ML VIAL IVPUSH SCH (10:51)
[2021-09-01] MEDS: APIXABAN 5 MG TABLET GT SCH ×2 (10:51→22:46)
[2021-09-01] MEDS: BACITRACIN/POLYMYXIN B SULFATE 15 GM TUBE TP SCH (10:53)
[2021-09-01] MEDS: ZINC OXIDE 20% TOPICAL OINTMENT 30 GM TUBE TP SCH ×2 (10:53→22:46)
[2021-09-01] MEDS: NYSTATIN 100000 UNIT/GM TOPICAL OINTMENT 15 GM TUBE TP SCH ×2 (10:53→22:46)
[2021-09-02] MEDS ORDERED: MEROPENEM 1 GM VIAL (RESTRICTED TO ID) IVPB ONE ×3 (00:04→18:53)
[2021-09-02] MEDS ORDERED: DEXTROSE 5%-WATER 100 ML IVPB ONE ×3 (00:04→18:53)
[2021-09-02] MEDS: dilTIAZem HCL 60 MG TABLET NR SCH ×5 (01:00→23:06)
[2021-09-02] MEDS: MEROPENEM 1 GM in DEXTROSE 5%-WATER 100 ML IVPB SCH ×3 (01:55→18:56)
[2021-09-02 09:23] LABS: HEMATOCRIT 37.2 % (35.4-49); MCHC 32.3 g/dl (32.0-35.9); MEAN CELL VOLUME 83.5 fl (80-96); MEAN PLT VOLUME 8.9 fl (7.5-11.1); PLATELET COUNT 509 10^3/uL (134-434); RBC 4.46 M/mm3 (4.00-5.60); RDW 15.3 % (11.9-15.9); WHITE BLOOD COUNT 24.9 K/mm3 (4.0-10.0)
[2021-09-02 10:03] LABS: CALCIUM 8.8 mg/dL (8.5-10.1)
[2021-09-02 10:04] LABS: ALBUMIN 2.7 g/dl (3.4-5.0); BLOOD UREA NITROGEN 16.5 mg/dL (7-18); MAGNESIUM 2.4 mg/dL (1.8-2.4)
[2021-09-02 10:07] LABS: CREATININE 0.5 mg/dL (0.55-1.3); PHOSPHOROUS 2.2 mg/dL (2.5-4.9)
[2021-09-02 10:08] LABS: BILIRUBIN,TOTAL 0.7 mg/dL (0.2-1)
[2021-09-02 10:09] LABS: TOT PROT 7.1 g/dl (6.4-8.2)
[2021-09-02] MEDS: APIXABAN 5 MG TABLET PO SCH ×2 (11:04→23:06)
[2021-09-02] MEDS: AMINO ACIDS/PROTEIN HYDROLYS 30 ML LIQUID.PKT GT SCH ×2 (11:04→18:52)
[2021-09-02] MEDS: ASCORBIC ACID 500 MG/5 ML GT SCH ×2 (11:05→23:06)
[2021-09-02] MEDS: NYSTATIN 100000 UNIT/GM TOPICAL OINTMENT 15 GM TUBE TP SCH ×2 (11:05→23:08)
[2021-09-02] MEDS: MULTIVIT-MINERALS ORAL LIQUID GT SCH (11:05)
[2021-09-02] MEDS: ZINC OXIDE 20% TOPICAL OINTMENT 30 GM TUBE TP SCH ×2 (11:06→23:07)
[2021-09-02] MEDS: COLLAGENASE CLOSTRIDIUM HIST. 30 GRAMS TUBE TP SCH (11:06)
[2021-09-02] MEDS: BACITRACIN/POLYMYXIN B SULFATE 15 GM TUBE TP SCH (11:06)
[2021-09-02] MEDS: FAMOTIDINE 40 MG/5 ML ORAL SUSPENSION PEG SCH (11:06)
[2021-09-02] MEDS: DEXAMETHASONE SOD PHOSPHATE 4 MG/1 ML VIAL IVPUSH SCH (11:07)
[2021-09-02 11:34] LABS: ANISOCYTOSIS 0; HELMET CELLS 0; HOWELL-JOLLY BODIES 0; MACROCYTOSIS 0; OVALOCYTE 0; ROULEAU 0; SICKELED CELLS 0; TARGET CELLS 0; TEAR DROP CELLS 0; TOXIC GRANULATION 0
[2021-09-02] MEDS: SCOPOLAMINE HYDROBROMIDE 1 PATCH PATCH.TD72 TD SCH (14:25)
[2021-09-02] MEDS: ACETAMINOPHEN 650 MG/20.3 ML ORAL SOLUTION (CUPS) PO PRN (23:29)
[2021-09-03] MEDS ORDERED: DEXTROSE 5%-WATER 100 ML IVPB ONE ×3 (00:51→17:13)
[2021-09-03] MEDS ORDERED: MEROPENEM 1 GM VIAL (RESTRICTED TO ID) IVPB ONE ×3 (00:51→17:13)
[2021-09-03] MEDS: MEROPENEM 1 GM in DEXTROSE 5%-WATER 100 ML IVPB SCH ×3 (01:08→17:20)
[2021-09-03] MEDS: dilTIAZem HCL 60 MG TABLET NR SCH ×4 (05:43→23:00)
[2021-09-03] MEDS: ACETAMINOPHEN 650 MG/20.3 ML ORAL SOLUTION (CUPS) PO PRN (05:44)
[2021-09-03 08:16] LABS: BASO % 0.1 % (0-2.0); EOS % 0.1 % (0-4.5); HEMATOCRIT 35.2 % (35.4-49); HEMOGLOBIN 11.2 GM/dL (11.7-16.9); LYMPH % 9.1 % (8-40); MCH 26.5 pg (25.7-33.7); MEAN CELL VOLUME 82.9 fl (80-96); MEAN PLT VOLUME 7.9 fl (7.5-11.1); MONO % 9.9 % (3.8-10.2); NEUT % 80.8 % (42.8-82.8); PLATELET COUNT 592 10^3/uL (134-434); RBC 4.24 M/mm3 (4.00-5.60); RDW 15.2 % (11.9-15.9); WHITE BLOOD COUNT 14.9 K/mm3 (4.0-10.0)
[2021-09-03] MEDS ORDERED: FENTANYL PATCH WASTE MC PRN (09:19)
[2021-09-03] MEDS ORDERED: DOCUSATE SODIUM 100 MG CAPSULE (FP) PO SCH (10:00)
[2021-09-03] MEDS: fentaNYL 25mcg/hr PATCH.TD72 TD SCH (10:31)
[2021-09-03] MEDS: DEXAMETHASONE SOD PHOSPHATE 4 MG/1 ML VIAL IVPUSH SCH (10:33)
[2021-09-03] MEDS: ASCORBIC ACID 500 MG/5 ML GT SCH ×2 (10:33→22:46)
[2021-09-03] MEDS: NYSTATIN 100000 UNIT/GM TOPICAL OINTMENT 15 GM TUBE TP SCH ×2 (10:33→22:47)
[2021-09-03] MEDS: BACITRACIN/POLYMYXIN B SULFATE 15 GM TUBE TP SCH (10:33)
[2021-09-03] MEDS: COLLAGENASE CLOSTRIDIUM HIST. 30 GRAMS TUBE TP SCH (10:33)
[2021-09-03] MEDS: FAMOTIDINE 40 MG/5 ML ORAL SUSPENSION PEG SCH (10:35)
[2021-09-03] MEDS: AMINO ACIDS/PROTEIN HYDROLYS 30 ML LIQUID.PKT GT SCH ×2 (10:35→17:20)
[2021-09-03] MEDS: MULTIVIT-MINERALS ORAL LIQUID GT SCH (10:35)
[2021-09-03] MEDS: ZINC OXIDE 20% TOPICAL OINTMENT 30 GM TUBE TP SCH ×2 (10:35→22:47)
[2021-09-04] MEDS ORDERED: MEROPENEM 1 GM VIAL (RESTRICTED TO ID) IVPB ONE ×3 (00:28→16:47)
[2021-09-04] MEDS ORDERED: DEXTROSE 5%-WATER 100 ML IVPB ONE ×3 (00:29→16:47)
[2021-09-04] MEDS: MEROPENEM 1 GM in DEXTROSE 5%-WATER 100 ML IVPB SCH ×2 (01:16→09:14)
[2021-09-04] MEDS: dilTIAZem HCL 60 MG TABLET NR SCH ×4 (05:21→23:50)
[2021-09-04 08:43] LABS: BASO % 0.1 % (0-2.0); EOS % 0.1 % (0-4.5); HEMATOCRIT 34.8 % (35.4-49); HEMOGLOBIN 11.1 GM/dL (11.7-16.9); LYMPH % 7.9 % (8-40); MCH 26.4 pg (25.7-33.7); MCHC 31.7 g/dl (32.0-35.9); MEAN CELL VOLUME 83.3 fl (80-96); MEAN PLT VOLUME 7.9 fl (7.5-11.1); MONO % 8.1 % (3.8-10.2); NEUT % 83.8 % (42.8-82.8); PLATELET COUNT 592 10^3/uL (134-434); RBC 4.19 M/mm3 (4.00-5.60); RDW 15.6 % (11.9-15.9); WHITE BLOOD COUNT 17.7 K/mm3 (4.0-10.0)
[2021-09-04] MEDS: AMINO ACIDS/PROTEIN HYDROLYS 30 ML LIQUID.PKT GT SCH ×2 (09:04→16:46)
[2021-09-04] MEDS: MULTIVIT-MINERALS ORAL LIQUID GT SCH (09:04)
[2021-09-04] MEDS: COLLAGENASE CLOSTRIDIUM HIST. 30 GRAMS TUBE TP SCH (09:05)
[2021-09-04] MEDS: FAMOTIDINE 40 MG/5 ML ORAL SUSPENSION PEG SCH (09:05)
[2021-09-04] MEDS: ASCORBIC ACID 500 MG/5 ML GT SCH ×2 (09:05→22:52)
[2021-09-04 09:09] LABS: ALBUMIN 2.6 g/dl (3.4-5.0); BLOOD UREA NITROGEN 19.2 mg/dL (7-18); CALCIUM 8.9 mg/dL (8.5-10.1); MAGNESIUM 2.4 mg/dL (1.8-2.4)
[2021-09-04 09:11] LABS: CREATININE 0.4 mg/dL (0.55-1.3)
[2021-09-04 09:12] LABS: BILIRUBIN,TOTAL 0.5 mg/dL (0.2-1); PHOSPHOROUS 2.4 mg/dL (2.5-4.9); TOT PROT 6.5 g/dl (6.4-8.2)
[2021-09-04] MEDS: NYSTATIN 100000 UNIT/GM TOPICAL OINTMENT 15 GM TUBE TP SCH ×2 (09:14→22:44)
[2021-09-04] MEDS: BACITRACIN/POLYMYXIN B SULFATE 15 GM TUBE TP SCH (09:14)
[2021-09-04] MEDS: ZINC OXIDE 20% TOPICAL OINTMENT 30 GM TUBE TP SCH ×2 (09:14→22:45)
[2021-09-04] MEDS: MAG HYDROX/ALH/SMC/DPHA/LIDO 240 ML MOUTHWASH MM SCH ×3 (11:15→23:49)
[2021-09-04] MEDS ORDERED: DEXMEDETOMIDINE HCL 200 MCG/2 ML IVPB ONE (14:00)
[2021-09-04] MEDS ORDERED: ACETAMINOPHEN INJECTION 100 ML IVPB ONE (14:02)
[2021-09-04] MEDS: SODIUM CHLORIDE 1,000 ML IV SCH (17:08)
[2021-09-04] MEDS: NAPH,MB-DB/K PH,MBDB POWDER PACKET GT SCH (22:52)
[2021-09-05] MEDS: dilTIAZem HCL 60 MG TABLET NR SCH ×4 (05:22→23:22)
[2021-09-05] MEDS: MAG HYDROX/ALH/SMC/DPHA/LIDO 240 ML MOUTHWASH MM SCH ×4 (05:22→23:41)
[2021-09-05 09:58] LABS: BASO % 0.3 % (0-2.0); HEMATOCRIT 33.3 % (35.4-49); HEMOGLOBIN 10.8 GM/dL (11.7-16.9); MCH 26.9 pg (25.7-33.7); MCHC 32.3 g/dl (32.0-35.9); MEAN CELL VOLUME 83.1 fl (80-96); MEAN PLT VOLUME 7.4 fl (7.5-11.1); MONO % 8.8 % (3.8-10.2); NEUT % 84.9 % (42.8-82.8); PLATELET COUNT 520 10^3/uL (134-434); RBC 4.01 M/mm3 (4.00-5.60); RDW 15.6 % (11.9-15.9); WHITE BLOOD COUNT 12.6 K/mm3 (4.0-10.0)
[2021-09-05 10:22] LABS: CALCIUM 8.6 mg/dL (8.5-10.1)
[2021-09-05 10:23] LABS: ALBUMIN 2.7 g/dl (3.4-5.0); BLOOD UREA NITROGEN 13.3 mg/dL (7-18); MAGNESIUM 2.4 mg/dL (1.8-2.4)
[2021-09-05 10:26] LABS: CREATININE 0.5 mg/dL (0.55-1.3)
[2021-09-05 10:27] LABS: TOT PROT 6.2 g/dl (6.4-8.2)
[2021-09-05 10:37] LABS: BILIRUBIN,TOTAL 0.8 mg/dL (0.2-1)
[2021-09-05] MEDS: AMINO ACIDS/PROTEIN HYDROLYS 30 ML LIQUID.PKT GT SCH ×2 (12:48→17:49)
[2021-09-05] MEDS: FAMOTIDINE 40 MG/5 ML ORAL SUSPENSION PEG SCH (12:48)
[2021-09-05] MEDS: MULTIVIT-MINERALS ORAL LIQUID GT SCH (12:48)
[2021-09-05] MEDS: NAPH,MB-DB/K PH,MBDB POWDER PACKET GT SCH (12:48)
[2021-09-05] MEDS: ASCORBIC ACID 500 MG/5 ML GT SCH ×2 (12:48→23:21)
[2021-09-05] MEDS: SODIUM CHLORIDE 1,000 ML IV SCH (15:09)
[2021-09-05] MEDS: ZINC OXIDE 20% TOPICAL OINTMENT 30 GM TUBE TP SCH ×2 (15:45→23:22)
[2021-09-05] MEDS: NYSTATIN 100000 UNIT/GM TOPICAL OINTMENT 15 GM TUBE TP SCH ×2 (15:46→23:21)
[2021-09-05] MEDS: BACITRACIN/POLYMYXIN B SULFATE 15 GM TUBE TP SCH (15:48)
[2021-09-05] MEDS: COLLAGENASE CLOSTRIDIUM HIST. 30 GRAMS TUBE TP SCH (15:50)
[2021-09-05] MEDS: SCOPOLAMINE HYDROBROMIDE 1 PATCH PATCH.TD72 TD SCH (17:49)
[2021-09-05] MEDS: APIXABAN 5 MG TABLET PO SCH (23:21)
[2021-09-06] MEDS: MAG HYDROX/ALH/SMC/DPHA/LIDO 240 ML MOUTHWASH MM SCH ×4 (05:49→17:42)
[2021-09-06] MEDS: dilTIAZem HCL 60 MG TABLET NR SCH ×3 (05:50→17:41)
[2021-09-06 08:44] LABS: BASO % 0.3 % (0-2.0); EOS % 0.5 % (0-4.5); HEMATOCRIT 32.7 % (35.4-49); HEMOGLOBIN 10.4 GM/dL (11.7-16.9); LYMPH % 5.9 % (8-40); MCH 26.8 pg (25.7-33.7); MEAN PLT VOLUME 7.7 fl (7.5-11.1); MONO % 9.2 % (3.8-10.2); NEUT % 84.1 % (42.8-82.8); PLATELET COUNT 446 10^3/uL (134-434); RBC 3.89 M/mm3 (4.00-5.60); RDW 15.4 % (11.9-15.9)
[2021-09-06 09:01] LABS: ALBUMIN 2.4 g/dl (3.4-5.0); CALCIUM 8.3 mg/dL (8.5-10.1)
[2021-09-06 09:04] LABS: CREATININE 0.4 mg/dL (0.55-1.3)
[2021-09-06 09:06] LABS: BILIRUBIN,TOTAL 0.6 mg/dL (0.2-1); TOT PROT 5.9 g/dl (6.4-8.2)
[2021-09-06] MEDS: fentaNYL 25mcg/hr PATCH.TD72 TD SCH (11:06)
[2021-09-06] MEDS: FAMOTIDINE 40 MG/5 ML ORAL SUSPENSION PEG SCH (11:07)
[2021-09-06] MEDS: NYSTATIN 100000 UNIT/GM TOPICAL OINTMENT 15 GM TUBE TP SCH (11:07)
[2021-09-06] MEDS: AMINO ACIDS/PROTEIN HYDROLYS 30 ML LIQUID.PKT GT SCH ×2 (11:07→17:41)
[2021-09-06] MEDS: APIXABAN 5 MG TABLET PO SCH (11:07)
[2021-09-06] MEDS: DOCUSATE NA 100 MG/10 ML UNIT-DOSE CUPS GT PRN (11:07)
[2021-09-06] MEDS: MULTIVIT-MINERALS ORAL LIQUID GT SCH (11:07)
[2021-09-06] MEDS: COLLAGENASE CLOSTRIDIUM HIST. 30 GRAMS TUBE TP SCH (11:08)
[2021-09-06] MEDS: BACITRACIN/POLYMYXIN B SULFATE 15 GM TUBE TP SCH (11:08)
[2021-09-06] MEDS: ZINC OXIDE 20% TOPICAL OINTMENT 30 GM TUBE TP SCH (11:08)
[2021-09-06] MEDS: ASCORBIC ACID 500 MG/5 ML GT SCH (11:08)
[2021-09-06] MEDS ORDERED: SILVER NITRATE 75% APPLIC STCK 1 PKT EACH TP ONE ×2 (18:39→19:30)
[2021-09-06 19:41] LABS: HEMATOCRIT 32.4 % (35.4-49); HEMOGLOBIN 10.6 GM/dL (11.7-16.9); MCHC 32.5 g/dl (32.0-35.9); MEAN CELL VOLUME 83.1 fl (80-96); MEAN PLT VOLUME 7.5 fl (7.5-11.1); PLATELET COUNT 506 10^3/uL (134-434); RDW 15.4 % (11.9-15.9); WHITE BLOOD COUNT 13.9 K/mm3 (4.0-10.0)
[2021-09-06 19:50] LABS: INR 1.52 (0.83-1.09); PROTHROMBIN TIME (PATIENT) 17.5 SEC (9.7-13.0)
[2021-09-06 19:52] LABS: ACTIVATED PTT 33.5 SECONDS (25.2-36.5)
[2021-09-07] MEDS: dilTIAZem HCL 60 MG TABLET NR SCH ×5 (01:37→17:24)
[2021-09-07] MEDS: MAG HYDROX/ALH/SMC/DPHA/LIDO 240 ML MOUTHWASH MM SCH ×4 (01:37→17:20)
[2021-09-07 08:24] LABS: BASO % 0.3 % (0-2.0); EOS % 0.2 % (0-4.5); HEMOGLOBIN 10.8 GM/dL (11.7-16.9); LYMPH % 7.4 % (8-40); MCH 26.5 pg (25.7-33.7); MCHC 31.7 g/dl (32.0-35.9); MEAN CELL VOLUME 83.6 fl (80-96); MEAN PLT VOLUME 7.6 fl (7.5-11.1); MONO % 10.2 % (3.8-10.2); NEUT % 81.9 % (42.8-82.8); PLATELET COUNT 532 10^3/uL (134-434); RBC 4.06 M/mm3 (4.00-5.60); RDW 15.2 % (11.9-15.9); WHITE BLOOD COUNT 14.8 K/mm3 (4.0-10.0)
[2021-09-07 08:33] LABS: BLOOD UREA NITROGEN 13.9 mg/dL (7-18); CALCIUM 8.6 mg/dL (8.5-10.1)
[2021-09-07 08:37] LABS: CREATININE 0.5 mg/dL (0.55-1.3)
[2021-09-07] MEDS: AMINO ACIDS/PROTEIN HYDROLYS 30 ML LIQUID.PKT GT SCH ×2 (10:38→17:19)
[2021-09-07] MEDS: FAMOTIDINE 40 MG/5 ML ORAL SUSPENSION PEG SCH (10:38)
[2021-09-07] MEDS: NYSTATIN 100000 UNIT/GM TOPICAL OINTMENT 15 GM TUBE TP SCH ×3 (10:38→23:36)
[2021-09-07] MEDS: MULTIVIT-MINERALS ORAL LIQUID GT SCH (10:38)
[2021-09-07] MEDS: ASCORBIC ACID 500 MG/5 ML GT SCH ×3 (10:39→22:45)
[2021-09-07] MEDS: BACITRACIN/POLYMYXIN B SULFATE 15 GM TUBE TP SCH (10:39)
[2021-09-07] MEDS: COLLAGENASE CLOSTRIDIUM HIST. 30 GRAMS TUBE TP SCH (10:39)
[2021-09-07] MEDS: cloNIDine-TTS 0.3 MG /24 HRS PATCH.TDWK TD SCH (10:40)
[2021-09-07] MEDS: ZINC OXIDE 20% TOPICAL OINTMENT 30 GM TUBE TP SCH ×3 (10:40→22:45)
[2021-09-07] MEDS ORDERED: ACETAMINOPHEN 650 MG/20.3 ML ORAL SOLUTION (CUPS) PO PRN (11:09)
[2021-09-07] MEDS ORDERED: DOCUSATE NA 100 MG/10 ML UNIT-DOSE CUPS GT PRN (11:09)
[2021-09-07] MEDS: HEPARIN NA (PORCINE) 5,000 UNITS/ML 1ML VIAL SQ SCH (22:45)
[2021-09-08] MEDS: MAG HYDROX/ALH/SMC/DPHA/LIDO 240 ML MOUTHWASH MM SCH ×2 (01:30→07:02)
[2021-09-08] MEDS: dilTIAZem HCL 60 MG TABLET NR SCH ×4 (01:30→18:14)
[2021-09-08] MEDS: HEPARIN NA (PORCINE) 5,000 UNITS/ML 1ML VIAL SQ SCH ×3 (07:01→21:27)
[2021-09-08 08:14] LABS: BASO % 0.2 % (0-2.0); EOS % 0.6 % (0-4.5); HEMATOCRIT 29.8 % (35.4-49); HEMOGLOBIN 9.8 GM/dL (11.7-16.9); LYMPH % 10.3 % (8-40); MCH 27.3 pg (25.7-33.7); MCHC 32.8 g/dl (32.0-35.9); MEAN CELL VOLUME 83.5 fl (80-96); MEAN PLT VOLUME 7.6 fl (7.5-11.1); MONO % 10.2 % (3.8-10.2); NEUT % 78.7 % (42.8-82.8); PLATELET COUNT 463 10^3/uL (134-434); RBC 3.57 M/mm3 (4.00-5.60); RDW 15.8 % (11.9-15.9); WHITE BLOOD COUNT 13.1 K/mm3 (4.0-10.0)
[2021-09-08 08:32] LABS: CALCIUM 8.9 mg/dL (8.5-10.1)
[2021-09-08 08:33] LABS: ALBUMIN 2.5 g/dl (3.4-5.0); MAGNESIUM 2.2 mg/dL (1.8-2.4)
[2021-09-08 08:35] LABS: CREATININE 0.4 mg/dL (0.55-1.3); PHOSPHOROUS 2.5 mg/dL (2.5-4.9)
[2021-09-08 08:37] LABS: BILIRUBIN,TOTAL 0.4 mg/dL (0.2-1); TOT PROT 6.2 g/dl (6.4-8.2)
[2021-09-08] MEDS ORDERED: BACITRACIN/POLYMYXIN B SULFATE 15 GM TUBE TP SCH (10:00)
[2021-09-08] MEDS ORDERED: COLLAGENASE CLOSTRIDIUM HIST. 30 GRAMS TUBE TP SCH (10:00)
[2021-09-08] MEDS: MULTIVIT-MINERALS ORAL LIQUID GT SCH (10:25)
[2021-09-08] MEDS: FAMOTIDINE 40 MG/5 ML ORAL SUSPENSION PEG SCH (10:25)
[2021-09-08] MEDS: NYSTATIN 100000 UNIT/GM TOPICAL OINTMENT 15 GM TUBE TP SCH ×2 (10:25→21:27)
[2021-09-08] MEDS: ASCORBIC ACID 500 MG/5 ML GT SCH ×2 (10:25→21:26)
[2021-09-08] MEDS: AMINO ACIDS/PROTEIN HYDROLYS 30 ML LIQUID.PKT GT SCH ×2 (10:26→18:14)
[2021-09-08] MEDS: SCOPOLAMINE HYDROBROMIDE 1 PATCH PATCH.TD72 TD SCH (12:26)
[2021-09-08] MEDS: ZINC OXIDE 20% TOPICAL OINTMENT 30 GM TUBE TP SCH ×2 (14:11→21:27)
[2021-09-09] MEDS: dilTIAZem HCL 60 MG TABLET NR SCH ×4 (00:58→17:49)
[2021-09-09] MEDS: HEPARIN NA (PORCINE) 5,000 UNITS/ML 1ML VIAL SQ SCH ×3 (05:17→23:00)
[2021-09-09] MEDS ORDERED: fentaNYL 25mcg/hr PATCH.TD72 TD SCH (09:30)
[2021-09-09] MEDS: AMINO ACIDS/PROTEIN HYDROLYS 30 ML LIQUID.PKT GT SCH ×2 (10:51→17:49)
[2021-09-09] MEDS: FAMOTIDINE 40 MG/5 ML ORAL SUSPENSION PEG SCH (10:56)
[2021-09-09] MEDS: ASCORBIC ACID 500 MG/5 ML GT SCH ×2 (10:56→23:00)
[2021-09-09] MEDS: MULTIVIT-MINERALS ORAL LIQUID GT SCH (10:57)
[2021-09-09] MEDS: NYSTATIN 100000 UNIT/GM TOPICAL OINTMENT 15 GM TUBE TP SCH ×2 (10:57→23:00)
[2021-09-09] MEDS: ZINC OXIDE 20% TOPICAL OINTMENT 30 GM TUBE TP SCH ×2 (10:57→23:00)
[2021-09-09] MEDS: FENTANYL PATCH WASTE TD PRN (11:45)
[2021-09-09] MEDS: COLLAGENASE CLOSTRIDIUM HIST. 30 GRAMS TUBE TP SCH (15:45)
[2021-09-10] MEDS: dilTIAZem HCL 60 MG TABLET NR SCH ×5 (00:45→23:48)
[2021-09-10] MEDS: HEPARIN NA (PORCINE) 5,000 UNITS/ML 1ML VIAL SQ SCH ×3 (06:05→23:00)
[2021-09-10] MEDS: FAMOTIDINE 40 MG/5 ML ORAL SUSPENSION PEG SCH (11:00)
[2021-09-10] MEDS: AMINO ACIDS/PROTEIN HYDROLYS 30 ML LIQUID.PKT GT SCH ×2 (11:00→17:46)
[2021-09-10] MEDS: ASCORBIC ACID 500 MG/5 ML GT SCH ×2 (11:01→23:00)
[2021-09-10] MEDS: MULTIVIT-MINERALS ORAL LIQUID GT SCH (11:02)
[2021-09-10] MEDS: COLLAGENASE CLOSTRIDIUM HIST. 30 GRAMS TUBE TP SCH (11:18)
[2021-09-10] MEDS: ZINC OXIDE 20% TOPICAL OINTMENT 30 GM TUBE TP SCH ×2 (11:18→23:00)
[2021-09-10] MEDS: NYSTATIN 100000 UNIT/GM TOPICAL OINTMENT 15 GM TUBE TP SCH ×2 (11:20→23:00)
[2021-09-10] MEDS: oxyCODONE HCL 5 MG TABLET GT PRN (17:46)
[2021-09-11] MEDS: HEPARIN NA (PORCINE) 5,000 UNITS/ML 1ML VIAL SQ SCH ×3 (06:08→23:00)
[2021-09-11] MEDS: dilTIAZem HCL 60 MG TABLET NR SCH ×4 (06:09→23:01)
[2021-09-11 08:54] LABS: HEMATOCRIT 33.4 % (35.4-49); HEMOGLOBIN 10.5 GM/dL (11.7-16.9); MCH 26.4 pg (25.7-33.7); MCHC 31.4 g/dl (32.0-35.9); MEAN PLT VOLUME 8.7 fl (7.5-11.1); PLATELET COUNT 447 10^3/uL (134-434); RBC 3.98 M/mm3 (4.00-5.60); RDW 16.2 % (11.9-15.9); WHITE BLOOD COUNT 13.2 K/mm3 (4.0-10.0)
[2021-09-11 09:09] LABS: ALBUMIN 2.7 g/dl (3.4-5.0); BLOOD UREA NITROGEN 11.7 mg/dL (7-18); MAGNESIUM 2.2 mg/dL (1.8-2.4)
[2021-09-11 09:12] LABS: CREATININE 0.4 mg/dL (0.55-1.3); PHOSPHOROUS 3.5 mg/dL (2.5-4.9)
[2021-09-11 09:13] LABS: BILIRUBIN,TOTAL 0.6 mg/dL (0.2-1); TOT PROT 6.6 g/dl (6.4-8.2)
[2021-09-11] MEDS: AMINO ACIDS/PROTEIN HYDROLYS 30 ML LIQUID.PKT GT SCH ×2 (11:01→18:00)
[2021-09-11] MEDS: MULTIVIT-MINERALS ORAL LIQUID GT SCH (11:01)
[2021-09-11] MEDS: ASCORBIC ACID 500 MG/5 ML GT SCH ×2 (11:01→22:59)
[2021-09-11] MEDS: FAMOTIDINE 40 MG/5 ML ORAL SUSPENSION PEG SCH (11:01)
[2021-09-11] MEDS: NYSTATIN 100000 UNIT/GM TOPICAL OINTMENT 15 GM TUBE TP SCH ×2 (11:02→23:01)
[2021-09-11] MEDS: ZINC OXIDE 20% TOPICAL OINTMENT 30 GM TUBE TP SCH ×2 (11:02→23:00)
[2021-09-11] MEDS: COLLAGENASE CLOSTRIDIUM HIST. 30 GRAMS TUBE TP SCH (11:02)
[2021-09-11] MEDS: SCOPOLAMINE HYDROBROMIDE 1 PATCH PATCH.TD72 TD SCH (14:37)
[2021-09-11] MEDS: FENTANYL PATCH WASTE TD PRN (20:08)
[2021-09-11] MEDS: LACTOBACILLUS ACIDOPHILUS 1 TABLET NGT SCH (22:59)
[2021-09-12] MEDS: dilTIAZem HCL 60 MG TABLET NR SCH ×4 (05:34→23:00)
[2021-09-12] MEDS: HEPARIN NA (PORCINE) 5,000 UNITS/ML 1ML VIAL SQ SCH ×2 (05:34→14:00)
[2021-09-12 09:01] LABS: BASO % 0.7 % (0-2.0); EOS % 0.7 % (0-4.5); HEMATOCRIT 29.9 % (35.4-49); HEMOGLOBIN 9.9 GM/dL (11.7-16.9); LYMPH % 6.8 % (8-40); MCH 27.5 pg (25.7-33.7); MCHC 33.1 g/dl (32.0-35.9); MEAN CELL VOLUME 83.1 fl (80-96); MEAN PLT VOLUME 7.7 fl (7.5-11.1); MONO % 7.2 % (3.8-10.2); NEUT % 84.6 % (42.8-82.8); PLATELET COUNT 455 10^3/uL (134-434); RDW 15.8 % (11.9-15.9); WHITE BLOOD COUNT 13.5 K/mm3 (4.0-10.0)
[2021-09-12] MEDS: AMINO ACIDS/PROTEIN HYDROLYS 30 ML LIQUID.PKT GT SCH ×2 (09:23→17:24)
[2021-09-12] MEDS: oxyCODONE HCL 5 MG TABLET GT PRN (09:23)
[2021-09-12] MEDS: ASCORBIC ACID 500 MG/5 ML GT SCH ×2 (09:25→23:04)
[2021-09-12] MEDS: MULTIVIT-MINERALS ORAL LIQUID GT SCH (09:26)
[2021-09-12] MEDS: FAMOTIDINE 40 MG/5 ML ORAL SUSPENSION PEG SCH (09:26)
[2021-09-12] MEDS: COLLAGENASE CLOSTRIDIUM HIST. 30 GRAMS TUBE TP SCH (09:26)
[2021-09-12] MEDS: NYSTATIN 100000 UNIT/GM TOPICAL OINTMENT 15 GM TUBE TP SCH ×2 (09:26→23:00)
[2021-09-12] MEDS: ZINC OXIDE 20% TOPICAL OINTMENT 30 GM TUBE TP SCH ×2 (09:27→23:00)
[2021-09-12 09:32] LABS: BLOOD UREA NITROGEN 9.4 mg/dL (7-18)
[2021-09-12 09:35] LABS: CREATININE 0.4 mg/dL (0.55-1.3)
[2021-09-12] MEDS ORDERED: FENTANYL PATCH WASTE TD PRN (14:00)
[2021-09-12] MEDS ORDERED: fentaNYL 25mcg/hr PATCH.TD72 TD SCH (14:00)
[2021-09-12] MEDS: LACTOBACILLUS ACIDOPHILUS 1 TABLET NGT SCH (23:00)
[2021-09-12] MEDS: APIXABAN 2.5 MG TABLET PO SCH (23:00)
[2021-09-13] MEDS: dilTIAZem HCL 60 MG TABLET NR SCH ×2 (05:42→12:02)
[2021-09-13 08:52] LABS: BASO % 0.3 % (0-2.0); EOS % 0.6 % (0-4.5); HEMATOCRIT 32.1 % (35.4-49); HEMOGLOBIN 10.2 GM/dL (11.7-16.9); LYMPH % 5.8 % (8-40); MCH 26.6 pg (25.7-33.7); MCHC 31.6 g/dl (32.0-35.9); MEAN PLT VOLUME 8.1 fl (7.5-11.1); MONO % 7.5 % (3.8-10.2); NEUT % 85.8 % (42.8-82.8); PLATELET COUNT 468 10^3/uL (134-434); RBC 3.82 M/mm3 (4.00-5.60); RDW 16.3 % (11.9-15.9); WHITE BLOOD COUNT 14.1 K/mm3 (4.0-10.0)
[2021-09-13] MEDS: AMINO ACIDS/PROTEIN HYDROLYS 30 ML LIQUID.PKT GT SCH (09:24)
[2021-09-13] MEDS: MULTIVIT-MINERALS ORAL LIQUID GT SCH (09:24)
[2021-09-13] MEDS: APIXABAN 2.5 MG TABLET PO SCH (09:25)
[2021-09-13] MEDS: ASCORBIC ACID 500 MG/5 ML GT SCH (09:25)
[2021-09-13] MEDS: FAMOTIDINE 40 MG/5 ML ORAL SUSPENSION PEG SCH (09:27)
[2021-09-13] MEDS: COLLAGENASE CLOSTRIDIUM HIST. 30 GRAMS TUBE TP SCH (09:29)
[2021-09-13] MEDS: ZINC OXIDE 20% TOPICAL OINTMENT 30 GM TUBE TP SCH (09:30)
[2021-09-13] MEDS: NYSTATIN 100000 UNIT/GM TOPICAL OINTMENT 15 GM TUBE TP SCH (09:31)
[2021-09-13 09:40] LABS: CALCIUM 8.8 mg/dL (8.5-10.1)
[2021-09-13 09:42] LABS: CREATININE 0.4 mg/dL (0.55-1.3); PHOSPHOROUS 3.6 mg/dL (2.5-4.9)
[2021-09-13 13:37] VITALS: BP 132/87; TEMP 98.7
[2021-09-13 14:59] VITALS: PULSE 113
[2021-09-14] MEDS ORDERED: cloNIDine-TTS 0.3 MG /24 HRS PATCH.TDWK TD SCH (10:00)
== END 2021-09-13 16:30 | DRG 720 ==
LOC: JER 18:30 → JERBED 20:09 → JICU 21:51 → J5S 04-21 15:17 → JICU 04-27 15:41 → J5S 05-06 02:17 → J2W 05-06 08:36 → J5S 05-06 08:36 → J2W 05-06 13:07 → J7W 06-08 17:17 → UNDODISIN 07-31 19:02
PROVIDERS: ADMIT Internal Medicine; ATTEND Internal Medicine
PROC: 5A1955Z Respiratory Ventilation, Greater than 96 Consecutive Hours (ICD-10-PCS; principal; 2021-04-20)
PROC: 3E0G76Z Introduction of Nutritional Substance into Upper GI, Via Natural or Artificial Opening (ICD-10-PCS; 2021-04-22)
PROC: 4A10X4Z Monitoring of Central Nervous Electrical Activity, External Approach (ICD-10-PCS; 2021-04-28)
PROC: 0BP1XDZ Removal of Intraluminal Device from Trachea, External Approach (ICD-10-PCS; 2021-06-08)
DX: A41.59 Other Gram-negative sepsis (principal); N17.9 Acute kidney failure, unspecified; E87.0 Hyperosmolality and hypernatremia; G93.1 Anoxic brain damage, not elsewhere classified; R65.20 Severe sepsis without septic shock; J96.21 Acute and chronic respiratory failure with hypoxia; K82.1 Hydrops of gallbladder; J69.0 Pneumonitis due to inhalation of food and vomit; E87.2 Acidosis; I10 Essential (primary) hypertension; L89.153 Pressure ulcer of sacral region, stage 3; L89.892 Pressure ulcer of other site, stage 2; L89.312 Pressure ulcer of right buttock, stage 2; R94.5 Abnormal results of liver function studies; J95.851 Ventilator associated pneumonia; E83.41 Hypermagnesemia; I82.442 Acute embolism and thrombosis of left tibial vein; D72.829 Elevated white blood cell count, unspecified; T36.0X5A Adverse effect of penicillins, initial encounter; R00.0 Tachycardia, unspecified; D69.6 Thrombocytopenia, unspecified; I95.9 Hypotension, unspecified; L73.8 Other specified follicular disorders; R74.01 Elevation of levels of liver transaminase levels; R56.9 Unspecified convulsions; L81.8 Other specified disorders of pigmentation; N39.0 Urinary tract infection, site not specified; B96.4 Proteus (mirabilis) (morganii) as the cause of diseases classified elsewhere; E86.0 Dehydration; K08.89 Other specified disorders of teeth and supporting structures; K56.7 Ileus, unspecified; D64.9 Anemia, unspecified; T40.2X1S Poisoning by other opioids, accidental (unintentional), sequela; L27.0 Generalized skin eruption due to drugs and medicaments taken internally; R58 Hemorrhage, not elsewhere classified; K82.4 Cholesterolosis of gallbladder; R16.0 Hepatomegaly, not elsewhere classified; Z93.0 Tracheostomy status; Z93.1 Gastrostomy status; Z86.74 Personal history of sudden cardiac arrest; Z66 Do not resuscitate
CPT/HCPCS: 36415; 70450-TC; 71045-TC-FY; 71250-TC; 74018-TC-FY; 74176-TC; 74177-TC; 76705-TC; 80048; 80053; 80076; 81003; 82272; 82436; 82550; 82553; 82728; 82803; 82962; 83036; 83516; 83540; 83550; 83605; 83615; 83735; 83880; 83930; 83935; 84100; 84133; 84300; 84443; 84478; 84484; 85025; 85027; 85379; 85610; 85651; 85730; 86038; 86140; 86705; 86706; 86707; 86708; 86803; 86850; 86900; 86901; 86922; 87040; 87070; 87076; 87086; 87186; 87205; 87324; 87340; 87389; 87449; 87517; 87804; 87899; 88304-TC; 93005; 93010; 93306-TC; 93970-TC; 94002; 95816; 97163-GP; 99291; C9399; C9803; E0186; G0480; J1644; U0003; U0005